=== PATIENT | female | born 1945 | race Caucasian/White ===

== ENCOUNTER → 2016-07-24 | Outpatient (CLI) | payer MEDICARE ==
[2016-07-24 08:36] LABS: ABSOLUTE EOSINOPHILS # (AUTO) 0.3 10^3/uL (0.0-0.6); ABSOLUTE LYMPHOCYTES (AUTO) 1.5 10^3/uL (0.5-4.7); ABSOLUTE MONOCYTES (AUTO) 0.7 10^3/uL (0.1-1.4); ABSOLUTE NEUT (AUTO) 4.2 10^3/uL (1.7-8.2); BASOPHILS % (AUTO) 0.5 % (0-2); EOSINOPHILS % (AUTO) 4.3 % (0-6); HEMATOCRIT 36.4 % (36.0-47.0); HEMOGLOBIN 12.2 g/dL (12.0-15.5); HGB HCT DIFFERENCE 0.2; LYMPHOCYTES % (AUTO) 22.3 % (13-45); MEAN CORPUSCULAR HEMOGLOBIN 29.5 pg (27.0-33.4); MEAN CORPUSCULAR HGB CONC 33.4 g/dL (32.0-36.0); MEAN CORPUSCULAR VOLUME 88 fl (80-97); MONOCYTES % (AUTO) 9.9 % (3-13); RED BLOOD COUNT 4.13 10^6/uL (3.72-5.28); RED CELL DISTRIBUTION WIDTH 15.5 % (11.5-14.0); WHITE BLOOD COUNT 6.7 10^3/uL (4.0-10.5)
[2016-07-24 09:14] LABS: ALANINE AMINOTRANSFERASE 35 U/L (9-52); ALBUMIN 4.4 g/dL (3.5-5.0); ALKALINE PHOSPHATASE 57 U/L (38-126); ANION GAP 12 (5-19); ASPARTATE AMINO TRANSFERASE 26 U/L (14-36); BILIRUBIN,DIRECT 0.3 mg/dL (0.0-0.4); BILIRUBIN,TOTAL 0.5 mg/dL (0.2-1.3); BLOOD UREA NITROGEN 20 mg/dL (7-20); CALCIUM 10.5 mg/dL (8.4-10.2); CARBON DIOXIDE 30 mmol/L (22-30); CHLORIDE 102 mmol/L (98-107); CHOLESTEROL 223.27 mg/dL (0-200); CREATININE RESULT 0.69 mg/dL (0.52-1.25); Direct HDL 57 mg/dL (>40); GLUCOSE 104 mg/dL (75-110); POTASSIUM 4.4 mmol/L (3.6-5.0); SODIUM 144.3 mmol/L (137-145); TOTAL PROTEIN 7.6 g/dL (6.3-8.2); TRIGLYCERIDES 146 mg/dL (<150)
[2016-07-24 09:33] LABS: DIRECT LDL 102 mg/dL (<100)
[2016-07-25 11:39] LABS: CREATININE URINE 43.1 mg/dL (Not Estab.)
== END ==
LOC: LAB 08:04
PROVIDERS: ATTEND Family Medicine Geriatric Medicine
DX: E11.9 Type 2 diabetes mellitus without complications (principal); I10 Essential (primary) hypertension; J30.9 Allergic rhinitis, unspecified; J01.10 Acute frontal sinusitis, unspecified; E78.00 Pure hypercholesterolemia, unspecified; Z79.899 Other long term (current) drug therapy
CPT/HCPCS: 36415; 80053; 80061; 82043; 82570; 83036; 84443; 85025

== ENCOUNTER → 2016-10-05 | Outpatient (CLI) | payer MEDICARE ==
--- NOTE | 2016-10-05 15:57 | WOMENS IMAGING REPORT ---
EXAM DESCRIPTION: 3D SCREENING MAMMO BILAT COMPLETED DATE/TIME: 10/05/2016 2:57 pm REASON FOR STUDY: ROUTINE SCREENING; Z12.31 COMPARISON: September 2015 and August 2014 TECHNIQUE: Standard craniocaudal and mediolateral oblique views of each breast recorded using digita l acquisition and breast tomosynthesis. LIMITATIONS: None. FINDINGS: Findings present which are benign by mammographic criteria. No suspicious masses, calcifi cations or architectural distortion. Pertinent benign findings: Fairly diffuse bilateral benign-appearing calcifications are identified. Read with the assistance of CAD. .[facility] - R2 Cenova Version 1.3 .[facility] Imaging - R2 Cenova Version 1.3 .[facility] Imaging - R2 Cenova Version 2.4 .[facility] [place] Cenova Version 2.4 .[facility] - R2 Pet Handler Version 9.2 Benign mammographic findings may include one or more of the following: Smooth masses, popcorn/rim/co arse calcifications, asymmetries, post-procedure changes, and lesions with long-standing stability. IMPRESSION: BENIGN MAMMOGRAPHIC FINDINGS. BIRADS 2 BREAST DENSITY: c. The breasts are heterogeneously dense, which may obscure small masses. BIRAD: 2 BENIGN FINDING(S) RECOMMENDATION: RECOMMENDATION: ROUTINE SCREENING COMMENT: The patient has been notified of the results by letter per SA requirements. Additional no tification policies are in place for contacting patient with suspicious or incomplete findings. Quality ID #225: The [employer] recommends an annual screening mammogram for women aged 40 years or over. This facility utilizes a reminder system to ensure that all patients receive reminder letters, and/or direct phone calls for appointments. This includes reminders for routine scr eening mammograms, diagnostic mammograms, or other Breast Imaging Interventions when appropriate. Th is patient will be placed in the appropriate reminder system. The [employer] (ACR) has developed recommendations for screening MRI of the breast s in certain patient populations, to be used in conjunction with mammography. Breast MRI surveillanc e may be appropriate for women with more than 20% lifetime risk of developing breast cancer as deter mined by genetic testing, significant family history of the disease, or history of mantle radiation f or Hodgkins Disease. ACR Practice Guidelines 2008. DBT Technology DBT is a type of tomographic mammography. With conventional mammography, overlapping breast tissue ma y make lesions difficult to detect, even with good compression. DBT uses an x-ray tube that rotates a round the breast, taking images at different angles. These images are then combined to create thin sl ices of the breast that the radiologist can view as a 3D reconstruction. The Hologic unit can perform full-field digital mammograms (2D imaging); or DBT (3D imaging); or both, in a combination mode that quickly performs both the mammogram and the tomosynthesis scan while the breast is still compressed. PQRS 6045F: Fluoroscopic imaging is not utilized for breast tomosynthesis. TECHNICAL DOCUMENTATION: FINDING NUMBER: (1) ASSESSMENT: (1) JOB ID: [id number] [employer]- All Rights Reserved
== END ==
LOC: WI 14:07
PROVIDERS: ATTEND Internal Medicine Medical Oncology
DX: Z12.31 Encounter for screening mammogram for malignant neoplasm of breast (principal)
CPT/HCPCS: 77063; G0202; 77067

== ENCOUNTER → 2016-10-17 | Outpatient (CLI) | payer MEDICARE ==
[2016-10-17 08:43] LABS: ALANINE AMINOTRANSFERASE 26 U/L (9-52); ASPARTATE AMINO TRANSFERASE 22 U/L (14-36); CHOLESTEROL 166.97 mg/dL (0-200); Direct HDL 55 mg/dL (>40); TRIGLYCERIDES 113 mg/dL (<150)
[2016-10-17 09:03] LABS: DIRECT LDL 81 mg/dL (<100)
[2016-10-18 11:40] LABS: MICROALBUMIN URINE 6.8 ug/mL (Not Estab.)
== END ==
LOC: LAB 08:06
PROVIDERS: ATTEND Family Medicine Geriatric Medicine
DX: E11.9 Type 2 diabetes mellitus without complications (principal); I10 Essential (primary) hypertension; E78.5 Hyperlipidemia, unspecified; Z79.899 Other long term (current) drug therapy
CPT/HCPCS: 36415; 80061; 82043; 82570; 83036; 84450; 84460

== ENCOUNTER 2017-02-01 08:50 | Day surgery (SDC) | payer MEDICARE ==
[~2017-02-01 08:50] MED LIST: CHONDR SU A NA/HYALUR INTRAOC KIT (SURGICARE) ONE; EPINEPHRINE INJ/PF 1 MG/1 ML AMPULE ONE; KETOROLAC TROMETHAMINE 0.45% 4 DROP/0.4 ML DROPERETTE OS PRN; LIDOCAINE 1% INJ-PF (10 MG/ML) 30 ML SDV ONE
[2017-02-01] MEDS: TETRACAINE HCL 0.5% OPH SOLN 2 ML OS PRN ×4 (09:11→09:45)
[2017-02-01] MEDS: TROPICAMIDE 1% OPH SOLN 3 ML OS PRN ×3 (09:12→09:33)
[2017-02-01] MEDS: CYCLOPENTOLATE 0.2%/PHENYLEPHRINE 1% OPH SOLN 2 ML OS PRN ×3 (09:12→09:33)
[2017-02-01] MEDS: BESIFLOXACIN HCL 0.6% OPH SUSP 5 ML BOTTLE OS PRN ×3 (09:13→10:05)
[2017-02-01] MEDS ORDERED: MIDAZOLAM 2 MG/2 ML INJ ONE (09:23)
[2017-02-01] MEDS ORDERED: FENTANYL CITRATE INJ/PF 100 MCG/2 ML AMPUL ONE (09:23)
--- NOTE | 2017-02-01 19:53 | [facility]GICARE OPERATIVE REPORT E ---
[facility] NAME: KENNEY FARLEY AGE: 72Y DATE OF SURGERY: 02/01/2017 ROOM: PREOPERATIVE DIAGNOSES: 1. CATARACT, LEFT EYE. 2. PUPIL MYOSIS OF THE LEFT EYE. POSTOPERATIVE DIAGNOSES: 1. CATARACT, LEFT EYE. 2. PUPIL MYOSIS OF THE LEFT EYE. OPERATION: Complex cataract extraction with use of a Malyugin ring due to poor pupillary dilation. SURGEON: JAVIER KENNEDY M.D. ANESTHESIA: Topical. PROCEDURE: After obtaining appropriate consent, the patient's left eye was prepped and draped in sterile fashion as well as the surgeon in a sterile manner and cataract surgery was started. First a paracentesis blade was used to make a small side-port incision. Viscoelastic was used to inflate the anterior chamber. Next a 2.4 mm incision was made with the paracentesis blade. A continuous capsulorrhexis incision was made using a cystotome and Utrata forceps. Following this hydrodissection was carried out to make the lens fully loose and mobile and it was rotated 90 degrees. Following this, a fpfamm-pzz-jswwpap technique was used to phacoemulsify the lens with a CDE of 8.26. The remaining cortex was removed with irrigation/aspiration. Provisc was instilled into the capsular bag to inflate the bag. A SN60WF, 16.0 diopter lens was placed. The remaining viscoelastic material was removed with irrigation/aspiration. Following this, a 10-0 nylon suture was used to close the incision and it was found to be watertight. Vigamox was instilled in the eye and a protective shield was placed over the eye. The patient returned to the postoperative recovery in stable condition. Prior to making the capsulorrhexis, a Malyugin ring was inserted due to poor pupillary dilation. This was removed at the end of the case. DICTATING PHYSICIAN: JAVIER KENNEDY M.D. [id number] PHY#: [id number] ID: [id number] JOB#: [id number] ACCT: [id number] cc:JAVIER KENNEDY M.D. >
--- NOTE | 2017-02-02 04:53 | SURGICARE DISCHARGE SUMMARY E ---
[facility] Discharge Summary NAME: KENNEY FARLEY AGE: 72Y ADMITTED: 02/01/2017 DISCHARGED: This is a 72-year-old patient who underwent cataract extraction of the left eye. DIAGNOSIS: 1. Cataract, left eye. 2. Myosis requiring a Malyugin ring, making this a complex cataract extraction due to poor pupillary dilation. She underwent surgery because she was having difficulty with glare from headlights, making it difficult to drive. DISCHARGE INSTRUCTIONS: The patient is to be on a regular diet. No bending at the waist, no heavy lifting. She should use her Besivance, Ilevro, and Durezol at 3 p.m. and 8 p.m. and sleep with a rigid shield. I will see her for a 1 day postoperative tomorrow. DICTATING PHYSICIAN: JAVIER KENNEDY M.D. [id number] PHY#: [id number] ID: [id number] JOB#: [id number] ACCT: [id number] cc:JAVIER KENNEDY M.D. >
== END 2017-02-01 10:50 | disposition home or self-care (01) ==
LOC: SC 08:50
PROVIDERS: ATTEND Internal Medicine
PROC: 08RK3JZ Replacement of Left Lens with Synthetic Substitute, Percutaneous Approach (ICD-10-PCS; principal; 2017-02-01 10:00)
DX: H25.812 Combined forms of age-related cataract, left eye (principal); H57.03 Miosis; I10 Essential (primary) hypertension; E11.9 Type 2 diabetes mellitus without complications; Z79.4 Long term (current) use of insulin; Z79.84 Long term (current) use of oral hypoglycemic drugs; Z79.82 Long term (current) use of aspirin; Z88.5 Allergy status to narcotic agent; Z85.3 Personal history of malignant neoplasm of breast
CPT/HCPCS: 66982; 82962; V2632; J2250; J3490 ×2; A9270; J0171; J3010; 142

== ENCOUNTER 2017-02-22 11:40 | Day surgery (SDC) | payer MEDICARE ==
[~2017-02-22 11:40] MED LIST changes: -CHONDR SU A NA/HYALUR INTRAOC KIT (SURGICARE) ONE; -EPINEPHRINE INJ/PF 1 MG/1 ML AMPULE ONE; -KETOROLAC TROMETHAMINE 0.45% 4 DROP/0.4 ML DROPERETTE OS PRN; -LIDOCAINE 1% INJ-PF (10 MG/ML) 30 ML SDV ONE; +TETRACAINE HCL 0.5% OPH SOLN 0.6 ML DROPERETTE OD PRN
[2017-02-22] MEDS ORDERED: EPINEPHRINE INJ/PF 1 MG/1 ML AMPULE ONE (12:22)
[2017-02-22] MEDS ORDERED: LIDOCAINE 1% INJ-PF (10 MG/ML) 30 ML SDV ONE (12:22)
[2017-02-22] MEDS ORDERED: CHONDR SU A NA/HYALUR INTRAOC KIT (SURGICARE) ONE (12:23)
[2017-02-22] MEDS: CYCLOPENTOLATE 0.2%/PHENYLEPHRINE 1% OPH SOLN 2 ML OD PRN ×3 (12:40→13:05)
[2017-02-22] MEDS: TETRACAINE HCL 0.5% OPH SOLN 2 ML OD PRN ×2 (12:40→13:14)
[2017-02-22] MEDS: TROPICAMIDE 1% OPH SOLN 3 ML OD PRN ×3 (12:41→13:05)
[2017-02-22] MEDS: KETOROLAC TROMETHAMINE 0.45% 4 DROP/0.4 ML DROPERETTE OD PRN ×2 (12:42→13:07)
[2017-02-22] MEDS: BESIFLOXACIN HCL 0.6% OPH SUSP 5 ML BOTTLE OD PRN ×2 (12:42→13:06)
[2017-02-22] MEDS ORDERED: MIDAZOLAM 2 MG/2 ML INJ ONE (13:11)
[2017-02-22] MEDS ORDERED: TOBRAMYCIN SULFATE/DEXAMETH OPH OINTMENT 3.5 GM ONE (13:26)
[2017-02-22] MEDS ORDERED: ACETAMINOPHEN 325 MG TABLET ONE (13:58)
--- NOTE | 2017-02-22 19:23 | SURGICARE OPERATIVE REPORT E ---
[facility] Operative Report NAME: KENNEY FARLEY AGE: 72Y DATE OF SURGERY: 02/22/2017 ROOM: PREOPERATIVE DIAGNOSIS: CATARACT, RIGHT EYE. POSTOPERATIVE DIAGNOSIS: CATARACT, RIGHT EYE. OPERATION: Cataract extraction with intraocular lens implant of the right eye. SURGEON: JAVIER KENNEDY M.D. ANESTHESIA: Topical. PROCEDURE: After obtaining appropriate consent, the patient's right eye was prepped and draped in sterile fashion as well as the surgeon in a sterile manner and cataract surgery was started. First a paracentesis blade was used to make a small side-port incision. Viscoelastic was used to inflate the anterior chamber. Next a 2.4 mm incision was made with the paracentesis blade. A continuous capsulorrhexis incision was made using a cystotome and Utrata forceps. Following this hydrodissection was carried out to make the lens fully loose and mobile and it was rotated 90 degrees. Following this, a dxxxyv-nub-bqfvgxj technique was used to phacoemulsify the lens with a CDE of 7.55. The remaining cortex was removed with irrigation/aspiration. Provisc was instilled into the capsular bag to inflate the bag. A SN60WF, 17.5 diopter lens was placed. The remaining viscoelastic material was removed with irrigation/aspiration. Following this, a 10-0 nylon suture was used to close the incision and it was found to be watertight. Vigamox was instilled in the eye and a protective shield was placed over the eye. The patient returned to the postoperative recovery in stable condition. DICTATING PHYSICIAN: JAVIER KENNEDY M.D. [id number] PHY#: [id number] ID: [id number] JOB#: [id number] ACCT: [id number] cc:JAVIER KENNEDY M.D. >
--- NOTE | 2017-02-22 19:28 | SURGICARE DISCHARGE SUMMARY E ---
[facility] Discharge Summary NAME: KENNEY FARLEY AGE: 72Y ADMITTED: 02/22/2017 DISCHARGED: 02/22/2017 HOSPITAL COURSE: This is a 72-year-old patient who underwent cataract extraction of the right eye. DIAGNOSIS: CATARACT, RIGHT EYE. The patient underwent surgery because she was having difficulty because of increased glare from headlights at night. DISCHARGE INSTRUCTIONS: She is to be on a regular diet. No bending at her waist, no heavy lifting. She should use Besivance, Ilevro, and Durezol at 3 p.m. and 8 p.m. and sleep with a rigid shield. I will see her for her 1 day postoperative tomorrow. DICTATING PHYSICIAN: JAVIER KENNEDY M.D. [id number] PHY#: [id number] ID: [id number] JOB#: [id number] ACCT: [id number] cc:JAVIER KENNEDY M.D. >
== END 2017-02-22 14:39 | disposition home or self-care (01) ==
LOC: SC 11:40
PROVIDERS: ATTEND Internal Medicine
PROC: 08RJ3JZ Replacement of Right Lens with Synthetic Substitute, Percutaneous Approach (ICD-10-PCS; principal; 2017-02-22 13:30)
DX: H25.811 Combined forms of age-related cataract, right eye (principal); H57.03 Miosis; Z96.1 Presence of intraocular lens; E11.9 Type 2 diabetes mellitus without complications; I10 Essential (primary) hypertension; E78.00 Pure hypercholesterolemia, unspecified; Z79.82 Long term (current) use of aspirin; Z79.899 Other long term (current) drug therapy; Z79.84 Long term (current) use of oral hypoglycemic drugs; Z79.4 Long term (current) use of insulin; Z85.3 Personal history of malignant neoplasm of breast
CPT/HCPCS: 66984; 82962; V2632; A9270 ×2; J2250; J3490 ×3; J0171; 142

== ENCOUNTER → 2017-04-26 | Outpatient (CLI) | payer MEDICARE ==
--- NOTE | 2017-04-26 17:08 | WOMENS IMAGING REPORT ---
EXAM DESCRIPTION: 3D DX MAMMO LEFT UNILAT; U/S BREAST UNILAT LIMITED COMPLETED DATE/TIME: 04/26/2017 8:43 am; 04/26/2017 10:15 am REASON FOR STUDY: MALIGNANT NEOPLASM OF LOWER OUTER QUADRANT; LEFT BREAST PALP. 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 Additional left breast 90 mediolateral view, cone compression of the upper outer quadrant in the are a of palpable abnormality. Left breast ultrasound was also performed. LIMITATIONS: None. FINDINGS: BREAST: Left MASSES: No discrete masses at mammograms/tomosynthesis CALCIFICATIONS: No new or suspicious calcifications. ARCHITECTURAL DISTORTION: Question architectural distortion on the tomosynthesis images in the upper outer quadrant 10 cm from the nipple in the area of palpable abnormality DEVELOPING DENSITY: None. ASYMMETRY: None noted. OTHER: No other significant findings. Read with the assistance of CAD. .[facility] - R2 Cenova Version 1.3 .[facility] Imaging - R2 Cenova Version 1.3 .[facility] Imaging - R2 Cenova Version 2.4 .[facility] [place] - R2 Cenova Version 2.4 .[facility] - R2 Digital Ad Trafficker Version 9.2 Left breast ultrasound: Left breast ultrasound was performed by both myself as well as the technologist. The patient upper o uter quadrant left breast is very firm, subtle abnormal echotexture with areas of ill-defined hypoech oic parenchyma. This most pronounced in the far upper outer quadrant, and with the tomosynthesis fin dings of subtle architectural distortion is worrisome for malignancy, possibly lobular carcinoma. The mammographic and sonographic findings were discussed with Dr Wheat, 1000 hours 04/26/2017. Bilateral breast MRI will be performed for followup, to evaluate the left upper outer quadrant and as sist in biopsy planning. IMPRESSION: Subtle signs of architectural distortion 5 mammography/ tomosynthesis and altered echote xture at ultrasound in the far upper outer quadrant left breast. Findings could indicate lobular mal ignancy. MRI of the bilateral breasts with contrast is recommended for follow-up, to evaluate for ex tent of disease assist with biopsy planning. BREAST DENSITY: c. The breasts are heterogeneously dense, which may obscure small masses. BIRAD: 0 Incomplete: Needs additional imaging evaluation with bilateral breast MRI with contrast. RECOMMENDATION: RECOMMENDED FOLLOW UP: Bilateral breast MRI with contrast SPECIFIC INTERVENTION/IMAGING/CONSULTATION RECOMMENDED:Bilateral breast MRI with contrast COMMUNICATION:Findings of today's mammograms and ultrasound were discussed with the patient, who unde rstands the need for breast MRI. Findings of today's mammograms and ultrasound were also discussed w ovidio Wheat COMMENT: The patient has been notified of the results by letter per SA requirements. Additional no tification policies are in place for contacting patient with suspicious or incomplete findings. Quality ID #225: The [employer] recommends an annual screening mammogram for women aged 40 years or over. This facility utilizes a reminder system to ensure that all patients receive reminder letters, and/or direct phone calls for appointments. This includes reminders for routine scr eening mammograms, diagnostic mammograms, or other Breast Imaging Interventions when appropriate. Th is patient will be placed in the appropriate reminder system. The [employer] (ACR) has developed recommendations for screening MRI of the breast s in certain patient populations, to be used in conjunction with mammography. Breast MRI surveillanc e may be appropriate for women with more than 20% lifetime risk of developing breast cancer as deter mined by genetic testing, significant family history of the disease, or history of mantle radiation f or Hodgkins Disease. ACR Practice Guidelines 2008. DBT Technology DBT is a type of tomographic mammography. With conventional mammography, overlapping breast tissue ma y make lesions difficult to detect, even with good compression. DBT uses an x-ray tube that rotates a round the breast, taking images at different angles. These images are then combined to create thin sl ices of the breast that the radiologist can view as a 3D reconstruction. The [employer] unit can perform full-field digital mammograms (2D imaging); or DBT (3D imaging); or both, in a combination mode that quickly performs both the mammogram and the tomosynthesis scan while the breast is still compressed. PQRS 6045F: Fluoroscopic imaging is not utilized for breast tomosynthesis. TECHNICAL DOCUMENTATION: FINDING NUMBER: (1) ASSESSMENT: (1) JOB ID: [id number] [employer]- All Rights Reserved
--- NOTE | 2017-04-26 17:08 | WOMENS IMAGING REPORT ---
EXAM DESCRIPTION: 3D DX MAMMO LEFT UNILAT; U/S BREAST UNILAT LIMITED COMPLETED DATE/TIME: 04/26/2017 8:43 am; 04/26/2017 10:15 am REASON FOR STUDY: MALIGNANT NEOPLASM OF LOWER OUTER QUADRANT; LEFT BREAST PALP. 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 Additional left breast 90 mediolateral view, cone compression of the upper outer quadrant in the are a of palpable abnormality. Left breast ultrasound was also performed. LIMITATIONS: None. FINDINGS: BREAST: Left MASSES: No discrete masses at mammograms/tomosynthesis CALCIFICATIONS: No new or suspicious calcifications. ARCHITECTURAL DISTORTION: Question architectural distortion on the tomosynthesis images in the upper outer quadrant 10 cm from the nipple in the area of palpable abnormality DEVELOPING DENSITY: None. ASYMMETRY: None noted. OTHER: No other significant findings. Read with the assistance of CAD. .[facility] - R2 Cenova Version 1.3 .[facility] Imaging - R2 Cenova Version 1.3 .[facility] Imaging - R2 Cenova Version 2.4 .[facility] R2 Cenova Version 2.4 .[facility] - R2 Senior Consultant Version 9.2 Left breast ultrasound: Left breast ultrasound was performed by both myself as well as the technologist. The patient upper o uter quadrant left breast is very firm, subtle abnormal echotexture with areas of ill-defined hypoech oic parenchyma. This most pronounced in the far upper outer quadrant, and with the tomosynthesis fin dings of subtle architectural distortion is worrisome for malignancy, possibly lobular carcinoma. The mammographic and sonographic findings were discussed with Dr Wheat, 1000 hours 04/26/2017. Bilateral breast MRI will be performed for followup, to evaluate the left upper outer quadrant and as sist in biopsy planning. IMPRESSION: Subtle signs of architectural distortion 5 mammography/ tomosynthesis and altered echote xture at ultrasound in the far upper outer quadrant left breast. Findings could indicate lobular mal ignancy. MRI of the bilateral breasts with contrast is recommended for follow-up, to evaluate for ex tent of disease assist with biopsy planning. BREAST DENSITY: c. The breasts are heterogeneously dense, which may obscure small masses. BIRAD: 0 Incomplete: Needs additional imaging evaluation with bilateral breast MRI with contrast. RECOMMENDATION: RECOMMENDED FOLLOW UP: Bilateral breast MRI with contrast SPECIFIC INTERVENTION/IMAGING/CONSULTATION RECOMMENDED:Bilateral breast MRI with contrast COMMUNICATION:Findings of today's mammograms and ultrasound were discussed with the patient, who unde rstands the need for breast MRI. Findings of today's mammograms and ultrasound were also discussed w ovidio Wheat COMMENT: The patient has been notified of the results by letter per SA requirements. Additional no tification policies are in place for contacting patient with suspicious or incomplete findings. Quality ID #225: The [employer] recommends an annual screening mammogram for women aged 40 years or over. This facility utilizes a reminder system to ensure that all patients receive reminder letters, and/or direct phone calls for appointments. This includes reminders for routine scr eening mammograms, diagnostic mammograms, or other Breast Imaging Interventions when appropriate. Th is patient will be placed in the appropriate reminder system. The [employer] (ACR) has developed recommendations for screening MRI of the breast s in certain patient populations, to be used in conjunction with mammography. Breast MRI surveillanc e may be appropriate for women with more than 20% lifetime risk of developing breast cancer as deter mined by genetic testing, significant family history of the disease, or history of mantle radiation f or Hodgkins Disease. ACR Practice Guidelines 2008. DBT Technology DBT is a type of tomographic mammography. With conventional mammography, overlapping breast tissue ma y make lesions difficult to detect, even with good compression. DBT uses an x-ray tube that rotates a round the breast, taking images at different angles. These images are then combined to create thin sl ices of the breast that the radiologist can view as a 3D reconstruction. The [employer] unit can perform full-field digital mammograms (2D imaging); or DBT (3D imaging); or both, in a combination mode that quickly performs both the mammogram and the tomosynthesis scan while the breast is still compressed. PQRS 6045F: Fluoroscopic imaging is not utilized for breast tomosynthesis. TECHNICAL DOCUMENTATION: FINDING NUMBER: (1) ASSESSMENT: (1) JOB ID: [id number] [employer]- All Rights Reserved
== END ==
LOC: WI 07:56
PROVIDERS: ATTEND Internal Medicine Medical Oncology
DX: C50.511 Malignant neoplasm of lower-outer quadrant of right female breast (principal)
CPT/HCPCS: 76642; 77065; G0279

== ENCOUNTER → 2017-05-03 | Outpatient (CLI) | payer MEDICARE ==
--- NOTE | 2017-05-05 14:35 | RADIOLOGY REPORT (SQ) ---
EXAM DESCRIPTION: MRI BREAST BILAT W AND/OR WO COMPLETED DATE/TIME: 05/03/2017 11:19 am REASON FOR STUDY: BREAST CA (C50.511) C50.511 MALIG NEOPLM OF LOWER-OUTER QUADRANT OF RIGHT FEMALE COMPARISON: Recent mammography and ultrasound. Prior MRI in 2014. PATHOLOGIC CORRELATION: Benign biopsy 2014 in the right breast. Known breast malignancy 1998 right breast. CONTRAST TYPE AND DOSE: 20 mL Prohance. RENAL FUNCTION: GFR > 60. TECHNIQUE: MR imaging performed with a dedicated breast coil. Pre contrast T1 and T2 weighted images . Pre contrast and post contrast enhanced T1 weighted images with fat saturation. Subtraction images, 3D thick and thin MIPS, and kinetic analysis performed on an independent workstat ion. ([employer] workstation) Magnet strength: 1.5 T LIMITATIONS: None. FINDINGS: BREAST DENSITY: c. The breasts are heterogeneously dense, which may obscure small masses. BACKGROUND PARENCHYMAL ENHANCEMENT:Moderate. RIGHT BREAST: Posttreatment changes. Skin thickening. Smaller breast. No enhancing or suspicious masses. No clumped, regional/segmental ductal enhancement. CHEST WALL: Normal tissue planes. No abnormal internal mammary nodes. AXILLA: Normal axillary and retro-pectoral nodes. LEFT BREAST:No enhancing or suspicious masses. Enhancement pattern unchanged since 2014. No clumped , regional/segmental ductal enhancement. CHEST WALL: Normal tissue planes. No abnormal internal mammary nodes. AXILLA: Normal axillary and retro-pectoral nodes. OTHER:No identified liver, bone, or lung lesions. No other significant incidental findings. IMPRESSION: Posttreatment changes in the right breast. No significant finding in the left breast. BIRAD: RIGHT BREAST: 2 Benign findings. LEFT BREAST: 1 Negative. RECOMMENDATION: RECOMMENDED FOLLOW-UP: Further intervention of a palpable abnormality should be base d on clinical suspicion. TECHNICAL DOCUMENTATION: JOB ID: [id number] [employer]- All Rights Reserved
== END ==
LOC: RAD 09:41
PROVIDERS: ATTEND Internal Medicine Medical Oncology
DX: C50.511 Malignant neoplasm of lower-outer quadrant of right female breast (principal)
CPT/HCPCS: 82565; A9576; C8906; 77059

== ENCOUNTER → 2017-05-18 | Outpatient (CLI) | payer MEDICARE ==
--- NOTE | 2017-05-18 15:55 | RADIOLOGY REPORT (SQ) ---
EXAM DESCRIPTION: SACRUM AND COCCYX COMPLETED DATE/TIME: 05/18/2017 11:19 am REASON FOR STUDY: LOW BACK PAIN M54.5 LOW BACK PAIN COMPARISON: None. NUMBER OF VIEWS: Three views. TECHNIQUE: AP, lateral, and tilt views of the sacrum and coccyx. LIMITATIONS: None. FINDINGS: MINERALIZATION: Normal. BONES: No acute fracture or dislocation. No worrisome bone lesions. SOFT TISSUES: No soft tissue swelling. No foreign body. OTHER: No other significant finding. IMPRESSION: NEGATIVE STUDY OF THE SACRUM AND COCCYX. TECHNICAL DOCUMENTATION: JOB ID: [id number] [employer]- All Rights Reserved Reading location - IP/workstation name: [email or web address]
--- NOTE | 2017-05-18 16:02 | RADIOLOGY REPORT (SQ) ---
EXAM DESCRIPTION: LUMBAR SPINE COMPLETE COMPLETED DATE/TIME: 05/18/2017 11:19 am REASON FOR STUDY: LOW BACK PAIN M54.5 LOW BACK PAIN COMPARISON: None. NUMBER OF VIEWS: Five views including obliques. TECHNIQUE: AP, lateral, oblique, and sacral radiographic images acquired of the lumbar spine. LIMITATIONS: None. FINDINGS: MINERALIZATION: Normal. SEGMENTATION: Normal. No transitional anatomy. ALIGNMENT: There is mild anterolisthesis of L4 in relation to L5. VERTEBRAE: Maintained height. No fracture or worrisome bone lesion. DISCS: There is some mild decrease in the L4-L5 disc space height. No other significant disc space r eduction is seen. POSTERIOR ELEMENTS: Pedicles and facets are intact. No pars defect or posterior arch defects. Degen erative changes are identified in the facet articulations at multiple levels HARDWARE: None in the spine. PARASPINAL SOFT TISSUES: Normal. PELVIS: Intact as visualized. No fractures or worrisome bone lesions. SI joints intact. OTHER: Extensive vascular calcifications are identified in the abdominal aorta and iliac vessels. Th ere is some apparent dilatation of the abdominal aorta which I cannot exclude as an abdominal aortic aneurysm. Ultrasound or CT may be of value for further evaluation IMPRESSION: Degenerative changes as noted above. Extensive vascular calcifications in the abdominal aorta and iliac vessels as noted above. There is some apparent dilatation of the abdominal aorta wh ich I cannot exclude as an abdominal aortic aneurysm. Ultrasound or CT is recommended for further ev aluation. Other findings as noted above TECHNICAL DOCUMENTATION: JOB ID: [id number] [employer]- All Rights Reserved Reading location - IP/workstation name: [email or web address]
--- NOTE | 2017-05-18 16:03 | RADIOLOGY REPORT (SQ) ---
EXAM DESCRIPTION: T SPINE AP/LAT COMPLETED DATE/TIME: 05/18/2017 11:19 am REASON FOR STUDY: LOW BACK PAIN M54.5 LOW BACK PAIN COMPARISON: None. NUMBER OF VIEWS: Two views. TECHNIQUE: AP and lateral radiographic images acquired of the thoracic spine. LIMITATIONS: None. FINDINGS: MINERALIZATION: Normal. ALIGNMENT: Normal. No scoliosis. VERTEBRAE: No fracture or bone lesion. Maintained height, normal segmentation. DISCS: No significant loss of height or significant narrowing. Osteophytic lipping is identified at multiple levels in the mid and lower thoracic spine. HARDWARE: None in the spine. MEDIASTINUM AND SOFT TISSUES: Normal heart size and aortic contour. No soft tissue abnormality. VISUALIZED LUNG CALLAHAN: Clear. OTHER: No other significant finding. IMPRESSION: Degenerative changes as noted above TECHNICAL DOCUMENTATION: JOB ID: [id number] [employer]- All Rights Reserved Reading location - IP/workstation name: [email or web address]
== END ==
LOC: OD 10:51
PROVIDERS: ATTEND Family Medicine Geriatric Medicine
DX: M54.5 Low back pain (principal)
CPT/HCPCS: 72070; 72110; 72220

== ENCOUNTER → 2017-05-30 | Outpatient (CLI) | payer MEDICARE ==
--- NOTE | 2017-05-30 12:05 | RADIOLOGY REPORT (SQ) ---
EXAM DESCRIPTION: CTA ABDOMEN/PELVIS W WO COMPLETED DATE/TIME: 05/30/2017 11:38 am REASON FOR STUDY: I77.819 AORTIC ECTASIA, UNSPECIFIED SITE ABNORMAL FINDINGS ON DIAGNOSTIC IM I77.81 9 AORTIC ECTASIA, UNSPECIFIED SITE R93.7 ABNORMAL FINDINGS ON DIAGNOSTIC IMAGING OF PRT MS SYS R10. 9 UNSPECIFIED ABDOMINAL PAIN COMPARISON: Lumbar spine films dated 05/18/2017 TECHNIQUE: CT scan of the abdominal aorta extending to the iliac bifurcation performed with intraven ous contrast using helical scanning technique with dynamic intravenous contrast injection. Images rev iewed with lung, soft tissue, and bone windows. Reconstructed coronal and sagittal MPR images reviewe d. All images stored on PACS. Advanced 3D imaging as volume rendering, MIPS, SSD performed? No All CT scanners at this facility use dose modulation, iterative reconstruction, and/or weight based d osing when appropriate to reduce radiation dose to as low as reasonably achievable (ALARA). [facility]: Dose Right [facility]: CareDose [facility]: Dose Right [facility]: Teradose 4D [facility]: [employer] CONTRAST TYPE AND DOSE: contrast/concentration: Isovue 370.00 mg/ml; Total Contrast Delivered: 55.0 ml; Total Saline Delivered: 70.1 ml RENAL FUNCTION: Creatinine 0.7 LIMITATIONS: None. FINDINGS: POST-CONTRAST IMAGING: AORTA AND VESSELS: There is diffuse ectasia of the abdominal aorta and iliac vessels with extensive v ascular calcifications. There is an infrarenal abdominal aortic aneurysm with a superior component m easuring 3.5 x 3.2 cm in diameters and a more inferior component measuring 3.2 x 3.2 cm in diameters. Vascular calcifications are identified at the origin of the celiac axis, superior mesenteric artery , and renal arteries. LUNG BASES: No significant findings. No nodules or infiltrates. LIVER: Normal size. No masses or dilated ducts. SPLEEN: Normal size. No focal lesions. PANCREAS: No masses. No significant calcifications. No adjacent inflammation or peripancreatic fluid collections. Pancreatic duct not dilated. GALLBLADDER: No identified stones by CT criteria. No inflammatory changes to suggest cholecystitis. ADRENAL GLANDS: No significant masses or asymmetry. RIGHT KIDNEY AND URETER: No mass, calculi or urinary tract obstruction. LEFT KIDNEY AND URETER: No mass, calculi or urinary tract obstruction. RETROPERITONEUM: No retroperitoneal adenopathy, hemorrhage or masses. BOWEL AND PERITONEAL CAVITY: No masses or inflammatory changes. No free fluid or peritoneal masses. APPENDIX: Normal. ABDOMINAL WALL: No masses. No hernias. BONY STRUCTURES: Degenerative changes are identified in the lumbar spine with some minimal anterolist hesis of L 4 in relation to L 5. There is mild compression of the superior endplate of the L1 verteb ra which is age indeterminate 3-D IMAGING: Confirms the above findings. OTHER: A cystic mass is identified in the right pelvis measuring 3.8 x 3.1 cm in diameters presumably ovarian in etiology. Followup recommendations are as noted below. IMPRESSION: Diffuse ectasia of the abdominal aorta and iliac vessels with extensive vascular calcifi cations. Infrarenal abdominal aortic aneurysm measuring 3.5 x 3.2 cm in greatest diameters. Cystic mass in the right pelvis presumably ovarian in etiology with followup recommendations as noted below. Other findings as noted above COMMENT: Followup of asymptomatic adnexal cysts found on CT or MRI in postmenopausal patients Early postmenopausal (50-55 yo) *Benign cyst ?3 cm: No followup *Benign cyst >3 and ?5 cm: US followup at 6-12 months *Benign cyst >5 cm: US *Probably benign cyst ?3 cm: No followup *Probably benign cyst > 3 cm: US *Other imaging features, probably diagnostic: manage as appropriate for diagnosis *Other imaging features, not specific: US Late postmenopausal (>55 yo) *Benign cyst ? 3 cm: No followup *Benign cyst > 3 cm: US *Probably benign cyst ? 1 cm: No followup *Probably benign cyst > 1 cm: US *Other imaging features: same as for early postmenopausal patient Note: If cyst is clinically symptomatic or otherwise concerning, other followup may be necessary. Menopause is considered age 50 by radiologist unless date of last period is known. Based on Managing Incidental Findings on Abdominal and Pelvic CT and MRI, Part 1: White Paper of the ACR Incidental Fi ndings Committee II on Adnexal Findings J Am [facility] Radiol 2013;10:675-681. TECHNICAL DOCUMENTATION: JOB ID: [id number] Quality ID # [id number]: Final reports with documentation of one or more dose reduction techniques (e.g., Au tomated exposure control, adjustment of the mA and/or kV according to patient size, use of iterative reconstruction technique) 2010 [employer]- All Rights Reserved Reading location - IP/workstation name: [email or web address] [id number]
== END ==
LOC: RAD 10:42
PROVIDERS: ATTEND Family Medicine Geriatric Medicine
DX: I71.4 Abdominal aortic aneurysm, without rupture (principal); N94.89 Other specified conditions associated with female genital organs and menstrual cycle; R10.9 Unspecified abdominal pain
CPT/HCPCS: 74174; 82565

== ENCOUNTER → 2017-06-06 | Day surgery (SDC) | payer MEDICARE ==
[~2017-06-06] MED LIST changes: +LIDOCAINE 2% INJ (20 MG/ML) 20 ML MDV ONE; -TETRACAINE HCL 0.5% OPH SOLN 0.6 ML DROPERETTE OD PRN
--- NOTE | 2017-06-08 18:51 | WOMENS IMAGING REPORT ---
EXAM DESCRIPTION: U/S BREAST BX; U/S BREAST BX EACH ADDT'L; LEFT DIG DX MAMMO NO CHG COMPLETED DATE/TIME: 06/06/2017 11:07 am; 06/06/2017 11:09 am REASON FOR STUDY: LEFT BREAST MASS; LEFT BREAST MASS C50.912; LEFT S/P US BX FOR CLIP PLACEMENT N63. 0 UNSPECIFIED LUMP IN UNSPECIFIED BREAST C50.912 MALIGNANT NEOPLASM OF UNSPECIFIED SITE OF LEFT FE MAL COMPARISON: Multiple mammograms dating back to 2014 Bilateral breast MRI 01/01/2015, 05/03/2017 Diagnostic mammograms and ultrasound 04/26/2017 TECHNIQUE: The procedure was discussed with the patient and the patient agreed to proceed. Ultrasou nd with tissue harmonics demonstrates ill-defined nodules at the 12 o'clock position and 1 o'clock po sition left breast. The patient was scanned and the area of interest in the 12 o'clock position and 1 o'clock position, 9 to 10 cm from the nipple of the left breast for localized. These areas correlates with the area of concern on prior imaging studies. These areas were targeted for ultrasound-guided core biopsy. 1 o'clock position: After sterile skin prep and 3 mL local lidocaine 1% for skin and deep tissue anesthesia, a 14 gauge c oaxial core biopsy needle was used to obtain several cores of tissue from the lesion. Under ultrasou nd guidance, a ribbon clip was placed in the areas sampled. There were no immediate post-procedure c omplications. 12 o'clock position: After sterile skin prep and 3 mL local lidocaine 1% for skin and deep tissue anesthesia, a 14 gauge c oaxial core biopsy needle was used to obtain several cores of tissue from the lesion. Under ultrasou nd guidance, a ribbon clip was placed in the areas sampled. There were no immediate post-procedure c omplications. MAMMOGRAM: Post-procedure two view mammogram was acquired in the digital mammogram suite. The clips w ere in the expected location. No significant hematoma. Pathology yields a diagnosis of invasive lobular carcinoma at the 1 o'clock position left breast, inv asive lobular carcinoma at the 12 o'clock position left breast Pathology is concordant. LIMITATIONS: None. FINDINGS: Ultrasound guided breast biopsy as described above. POST PROCEDURE MAMMOGRAMS FOR MARKER PLACEMENT: Yes IMPRESSION: ULTRASOUND-GUIDED CORE BIOPSY OF THE LEFT BREAST YIELDS A DIAGNOSIS OF INVASIVE LOBULAR CARCINOMA COMMENT: BI-RADS 6 Known biopsy-proven malignancy. Appropriate action should be taken. COMMUNICATION: This result was discussed with the patient, 1330 hours 06/08/2017. She understands vern t this is a malignant diagnosis which requires further intervention. Patient medication list reviewed: Yes- Quality ID# [id number]:Eligible professional attests to documenting i n the medical record they obtained, updated, or reviewed the patient's current medications. TECHNICAL DOCUMENTATION: JOB ID: [id number] [employer]- All Rights Reserved Reading location - IP/workstation name: [email or web address]
== END ==
LOC: WI 09:32
PROVIDERS: ATTEND Internal Medicine Medical Oncology
DX: C50.912 Malignant neoplasm of unspecified site of left female breast (principal)
CPT/HCPCS: 88342 ×2; 88341 ×2; 88305 ×2; 19083; 19084; J3490

== ENCOUNTER → 2017-10-08 | Outpatient (CLI) | payer MEDICARE ==
--- NOTE | 2017-10-08 15:24 | RADIOLOGY REPORT (SQ) ---
EXAM DESCRIPTION: FOOT RIGHT COMPLETE COMPLETED DATE/TIME: 10/08/2017 3:04 pm REASON FOR STUDY: HX OF FALLING (Z91.81) Z91.81 HISTORY OF FALLING COMPARISON: None. NUMBER OF VIEWS: Three views. TECHNIQUE: AP, lateral and oblique radiographic images acquired of the right foot. LIMITATIONS: None. FINDINGS: MINERALIZATION: Normal. BONES: No acute fracture or dislocation. No worrisome bone lesions. JOINTS: No effusions. SOFT TISSUES: No soft tissue swelling. No foreign body. OTHER: No other significant finding. IMPRESSION: NEGATIVE STUDY OF THE RIGHT FOOT. NO RADIOGRAPHIC EVIDENCE OF ACUTE INJURY. TECHNICAL DOCUMENTATION: JOB ID: [id number] [employer]- All Rights Reserved Reading location - IP/workstation name: [email or web address]
--- NOTE | 2017-10-08 15:59 | RADIOLOGY REPORT (SQ) ---
EXAM DESCRIPTION: FACIAL BONES COMPLETED DATE/TIME: 10/08/2017 3:04 pm REASON FOR STUDY: HX OF FALLING (Z91.81) Z91.81 HISTORY OF FALLING COMPARISON: None. NUMBER OF VIEWS: Three view. TECHNIQUE: Images of the facial bones acquired. LIMITATIONS: None. FINDINGS: ORBITS: No fracture. No foreign body. SINUSES: No mucosal thickening. No air fluid levels. FACIAL BONES: No fracture. OTHER: No other significant finding. IMPRESSION: NO FRACTURE OF THE FACIAL BONES. TECHNICAL DOCUMENTATION: JOB ID: [id number] [employer]- All Rights Reserved Reading location - IP/workstation name: [email or web address]
== END ==
LOC: RAD 14:14
PROVIDERS: ATTEND Internal Medicine
DX: G50.1 Atypical facial pain (principal); R22.0 Localized swelling, mass and lump, head; M79.672 Pain in left foot
CPT/HCPCS: 70150

== ENCOUNTER 2018-01-27 15:55 | Emergency (ER) | payer MEDICARE ==
[2018-01-27] MEDS ORDERED: NORMAL SALINE 500 ML IV ONE (16:39)
[2018-01-27 17:23] LABS: ABSOLUTE EOSINOPHILS # (AUTO) 0.1 10^3/uL (0.0-0.6); ABSOLUTE MONOCYTES (AUTO) 0.8 10^3/uL (0.1-1.4); ABSOLUTE NEUT (AUTO) 6.4 10^3/uL (1.7-8.2); BASOPHILS % (AUTO) 0.3 % (0-2); EOSINOPHILS % (AUTO) 0.7 % (0-6); HEMATOCRIT 29.2 % (36.0-47.0); HEMOGLOBIN 10.1 g/dL (12.0-15.5); LYMPHOCYTES % (AUTO) 11.9 % (13-45); MEAN CORPUSCULAR HEMOGLOBIN 33.7 pg (27.0-33.4); MEAN CORPUSCULAR HGB CONC 34.5 g/dL (32.0-36.0); MEAN CORPUSCULAR VOLUME 98 fl (80-97); MONOCYTES % (AUTO) 9.4 % (3-13); PLATELET COUNT 211 10^3/uL (150-450); RED BLOOD COUNT 2.99 10^6/uL (3.72-5.28); RED CELL DISTRIBUTION WIDTH 16.4 % (11.5-14.0); SEGMENTED NEUTROPHILS % (AUTO) 77.7 % (42-78); TOTAL CELLS COUNTED % (AUTO) 100 %; WHITE BLOOD COUNT 8.2 10^3/uL (4.0-10.5)
[2018-01-27 17:49] LABS: ALANINE AMINOTRANSFERASE 25 U/L (9-52); ALBUMIN 4.3 g/dL (3.5-5.0); ALKALINE PHOSPHATASE 50 U/L (38-126); ANION GAP 13 (5-19); ASPARTATE AMINO TRANSFERASE 19 U/L (14-36); BILIRUBIN,DIRECT 0.3 mg/dL (0.0-0.4); BILIRUBIN,TOTAL 0.5 mg/dL (0.2-1.3); BLOOD UREA NITROGEN 20 mg/dL (7-20); CALCIUM 10.3 mg/dL (8.4-10.2); CARBON DIOXIDE 30 mmol/L (22-30); CHLORIDE 97 mmol/L (98-107); GLUCOSE 153 mg/dL (75-110); POTASSIUM 4.3 mmol/L (3.6-5.0); SODIUM 139.7 mmol/L (137-145); TOTAL PROTEIN 7.1 g/dL (6.3-8.2)
--- NOTE | 2018-01-27 17:58 | RADIOLOGY REPORT (SQ) ---
EXAM DESCRIPTION: CHEST SINGLE VIEW COMPLETED DATE/TIME: 01/27/2018 5:33 pm REASON FOR STUDY: syncope COMPARISON: 09/02/2015 EXAM PARAMETERS: NUMBER OF VIEWS: One view. TECHNIQUE: Single frontal radiographic view of the chest acquired. RADIATION DOSE: NA LIMITATIONS: None. FINDINGS: LUNGS AND PLEURA: No opacities, masses or pneumothorax. No pleural effusion. MEDIASTINUM AND HILAR STRUCTURES: No masses. Contour normal. HEART AND VASCULAR STRUCTURES: Heart normal in size. Normal vasculature. BONES: No acute findings. HARDWARE: Left-sided chest port tip terminates in the expected region of the cavoatrial junction. OTHER: No other significant finding. IMPRESSION: NO ACUTE RADIOGRAPHIC FINDING IN THE CHEST. TECHNICAL DOCUMENTATION: JOB ID: [id number] [employer]- All Rights Reserved Reading location - IP/workstation name: [email or web address]
--- NOTE | 2018-01-27 19:01 | ER Document Report ---
ED Syncope and Near Syncope <YOVANI HALL - Last Filed: 01/28/18 02:21> - General Mode of Arrival: Wheelchair Information source: Patient, Relative TRAVEL OUTSIDE OF THE [place] IN LAST 30 DAYS: No - HPI Episode witnessed (by whom): Yes - By daughter Single episoded occurred: Prior to coming to ER When was most recent episode: This evening Symptoms prior to episode: Abdominal pain, Nausea/vomiting Duration of preceeding symptoms: Minutes 2 moments prior to her passing out patient was attempting to have a Position/Activity at time of episode: Sitting - Sitting having a BM Details of activity: See HPI above Quality of pain: Cramping, Pressure Severity: Moderate Pain Level: 3 Context: Became unresponsive, Collapsed. denies: Incontinent of stool, Incontinent of urine Injury location: None - He is still hemodynamic stable Current symptoms: Abdominal pain, Vomiting Similar symptoms previously: No Recently seen / treated by doctor: Yes <PAUL MARQUEZ - Last Filed: 02/04/18 09:43> - General Chief Complaint: Syncope Stated Complaint: DIZZINESS Time Seen by Provider: 01/27/18 16:01 Notes: Patient is a 73-year-old female who comes to the emergency room with her family with complaint of having a syncopal episode at home. Patient is a metastatic breast cancer survivor she is gone through multiple rounds of chemo last one being done in November and they are giving her a break in with cisplatin. Patient states she is here because she has been constipated for the past 3-4 days and she was having a bowel movement tonight only a little balls are coming out and she is fortunate to come out and she was massaging her but she is trying to help with resolve itself and as she was rubbing it she got lightheaded and she passed out and the daughters catching her before she hit the floor. When she did not land on the floor and woke back up patient vomited up the water she had just drank prior to passing out. They also informed me that she has just returned from [facility] where they found a solitary nodule in her brain and she had surgical radiation of that nodule on Sunday. She got one treatment at [place] and was put on a one-time dose of steroids to help with the swelling and sent home. They contacted Dr. Mistry who did the radiation intervention and he informed them that she probably needed to be treated at the ER and that if there was any indication that she might have swelling of the brain she would need to have steroids again. Patient is very fixated with the constipation. She also has memory issues sustained from when she was getting the chemotherapy. Daughter states that she gets very histrionic and that she forgets what she has said. That is not a new thing tonight. Daughter states that her ambulation is becoming more and more difficult she is using a shuffling type of action. She does not use her walker and she is supposed to. She is off balance a lot even prior to this radiation surgery of the brain lesion. (PAUL MARQUEZ) - Related Data Allergies/Adverse Reactions: codeine Allergy (Intermediate, Verified 02/20/17 12:27) increased blood sugar Past Medical History - General Information source: Patient, Relative - Social History Smoking Status: Former Smoker Cigarette use (# per day): No Chew tobacco use (# tins/day): No Smoking Education Provided: No Frequency of alcohol use: None Drug Abuse: None Lives with: Family Family History: Reviewed & Not Pertinent Patient has suicidal ideation: No Patient has homicidal ideation: No - Past Medical History Cardiac Medical History: Reports: Hx Hypertension Denies: Hx Heart Attack Pulmonary Medical History: Denies: Hx Asthma Neurological Medical History: Denies: Hx Cerebrovascular Accident, Hx Seizures Renal/ Medical History: Denies: Hx Peritoneal Dialysis GI Medical History: Denies: Hx Hepatitis, Hx Hiatal Hernia, Hx Ulcer Infectious Medical History: Denies: Hx Hepatitis Past Surgical History: Denies: Hx Mastectomy, Hx Open Heart Surgery, Hx Pacemaker <PAUL MARQUEZ - Last Filed: 02/04/18 09:43> Review of Systems - Review of Systems Constitutional: See HPI, Weakness EENT: No symptoms reported Cardiovascular: No symptoms reported Respiratory: No symptoms reported Gastrointestinal: Abdominal pain, Constipation Genitourinary: No symptoms reported Female Genitourinary: No symptoms reported Musculoskeletal: No symptoms reported Skin: No symptoms reported Hematologic/Lymphatic: No symptoms reported Neurological/Psychological: No symptoms reported -: Yes All other systems reviewed and negative <PAUL MARQUEZ - Last Filed: 02/04/18 09:43> Physical Exam <YOVANI HALL - Last Filed: 01/28/18 02:21> - Vital signs Interpretation: Hypertensive <PAUL MARQUEZ - Last Filed: 02/04/18 09:43> - Vital signs Vitals: Temp Pulse Resp BP Pulse Ox 98.6 F 71 18 132/62 H 97 01/27/18 16:03 01/27/18 16:03 01/27/18 16:03 01/27/18 16:03 01/27/18 16:03 - Notes Notes: PHYSICAL EXAMINATION: GENERAL: Patient appears to be a well-nourished well-developed 73-year-old female who it time of exam is in no apparent distress. She is awake alert and oriented x4. HEAD: Atraumatic, normocephalic. EYES: Pupils equal round and reactive to light, extraocular movements intact, conjunctiva are normal. ENT: Nares patent, oropharynx clear without exudates. Examination of the head and upper airway showed nasal mucosa to be slightly erythematous and edematous with no rhinorrhea. Posterior pharynx and oral mucosa is appears somewhat dry. No erythema uvula is midline airways patent. NECK: Normal range of motion, supple without lymphadenopathy LUNGS: Breath sounds clear to auscultation bilaterally and equal. No wheezes rales or rhonchi. HEART: Regular rate and rhythm without murmurs ABDOMEN: examination patient's abdomen shows that her abdomen is soft and the bilateral upper quadrants but in the lower quadrants and more firm to palpation and more tender to palpation. Patient has no rigidity or guarding in the lower quadrants. Bowel sounds are present in all 4 quads.. Patient is tender in the suprapubic area to palpation. And she is more firm as stated in the lower quads with some tympany noted in between the lower quadrants in the upper quads. Rectal exam shows there to be a large amount of just at the end of the index finger reach. It feels very hot and clayish in presentation. Very pliable. Female : deferred Musculoskeletal: Normal range of motion, no pitting or edema. No cyanosis. NEUROLOGICAL: . Normal speech. Normal sensory, motor exams patient's gait not tested secondary to balance. Rest of her neurologic exam is intact. NIH score of 2 PSYCH: Normal mood, normal affect. SKIN: Warm, Dry, normal turgor, no rashes or lesions noted. (PAUL MARQUEZ) Course - Laboratory Result Diagrams: 01/27/18 17:12 01/27/18 17:12 <YOVANI HALL - Last Filed: 01/28/18 02:21> - Laboratory Result Diagrams: 01/27/18 17:12 01/27/18 17:12 <PAUL MARQUEZ - Last Filed: 02/04/18 09:43> - Re-evaluation Re-evalutation: Urinalysis was obtained, does not show infection. Borderline hydronephrosis does not appear to be from a stone or infection. Patient was reevaluated at bedside. She had very large successful result from enema, abdominal pain is resolved, no current symptoms. No current abdominal pain or flank pain. No vomiting or fever. I called and spoke with patient's oncologist, Dr. See, updated him on the patient's visit, complaints, workup. No additional recommendations at this time. Patient with no additional complaints or concerns , discussed with family, provided with results from imaging, discussed return precautions, they state appreciation and agreement. (YOVANI HALL) 01/27/18 19:59 During my initial evaluation the patient the family indicated to me that the provider Dr. Mistry up at [facility] who did the interventional radiation procedure had requested that when we had patient worked up here at the hospital we give him a personal call. Gave them his personal cell phone number and that is [phone]. CT of the head came back with no acute findings primarily no mass shift. No sign of a CVA. But he was requesting that we contact him to make sure there was nothing that may have been brought on by his procedure. Patient's neurologic exam was intact 100% of the CT negative so I called Dr. Mistry back and informed him that this was more of a vasovagal type of a presentation and that I did not believe she needed to have any steroids but requested his input. He felt that given the information I gave to him at this time she does not need any more steroids that he felt that there really had not been a connection but he wanted to be certain and that is why he requested we call him. So at this point time he is recommending no steroids and regular follow-up as already scheduled. 01/27/18 20:02 I have taken-Fraint the mid-level for shift boss into the family room and introduced him to them and we all covered what was expected next. We requested the patient get a straight cath urine since she is not been able to give us one so far. And that we were going to proceed with the soapsuds enema with mineral oil. At this time the family is in agreement as this patient. I also informed him that I would contact Dr. Mistry which I already have done. And I am turning over patient care to live in. (PAUL MARQUEZ) - Vital Signs Vital signs: Temp Pulse Resp BP Pulse Ox 98.9 F 105 H 14 121/70 98 01/27/18 21:46 01/27/18 21:46 01/27/18 21:46 01/27/18 21:46 01/27/18 21:46 - Laboratory Laboratory results interpreted by me: 01/27/18 01/27/18 01/27/18 17:12 17:12 20:16 RBC 2.99 L Hgb 10.1 L Hct 29.2 L MCV 98 H MCH 33.7 H RDW 16.4 H Lymphocytes % 11.9 L Chloride 97 L Glucose 153 H Calcium 10.3 H Urine Glucose (UA) 150 H Discharge <YOVANI HALL - Last Filed: 01/28/18 02:21> <PAUL MARQUEZ - Last Filed: 02/04/18 09:43> - Discharge Clinical Impression: Metastatic breast cancer Episode of syncope Qualifiers: Syncope type: vasovagal syncope Qualified Code(s): R55 - Syncope and collapse Abdominal pain Qualifiers: Abdominal location: generalized Qualified Code(s): R10.84 - Generalized abdominal pain Condition: Stable Disposition: HOME, SELF-CARE Additional Instructions: Your evaluation today is most consistent with passing out from vasovagal syncope (probably from straining with bowel movement). The CAT scan of your brain does not show any acute findings, the CAT scan of your abdomen/pelvis shows questionable mild hydronephrosis, questionable cysts on the ovarian area, these can be followed outpatient. We spoke with both Dr. Mistry and Dr. See. Follow-up in the office for additional evaluation and management. Return for any concerning symptoms including fever, vomiting, severe abdominal pain, passing out again, or any other concerning symptoms. Referrals: ROCHELLE SEE MD [Primary Care Provider] - Follow up as needed
--- NOTE | 2018-01-27 19:13 | RADIOLOGY REPORT (SQ) ---
EXAM DESCRIPTION: CT HEAD WITHOUT COMPLETED DATE/TIME: 01/27/2018 7:03 pm REASON FOR STUDY: syncope COMPARISON: None. TECHNIQUE: Axial images acquired through the brain without intravenous contrast. Images reviewed wi th bone, brain and subdural windows. Additional sagittal and coronal reconstructions were generated. Images stored on PACS. All CT scanners at this facility use dose modulation, iterative reconstruction, and/or weight based d osing when appropriate to reduce radiation dose to as low as reasonably achievable (ALARA). [facility]: Dose Right [facility]: CareDose [facility]: Dose Right [facility]: Teradose 4D [facility]: [employer] RADIATION DOSE: CT Rad equipment meets quality standard of care and radiation dose reduction techniq ues were employed. CTDIvol: 53.2 mGy. DLP: 1070 mGy-cm. mGy. LIMITATIONS: None. FINDINGS: VENTRICLES: Normal size and contour. CEREBRUM: No masses. No hemorrhage. No midline shift. No evidence for acute infarction. Normal gra y/white matter differentiation. No areas of low density in the white matter. CEREBELLUM: No masses. No hemorrhage. No alteration of density. No evidence for acute infarction. EXTRAAXIAL SPACES: No fluid collections. No masses. ORBITS AND GLOBE: No intra- or extraconal masses. Normal contour of globe without masses. CALVARIUM: No fracture. PARANASAL SINUSES: Small polyp versus mucous retention cyst of the right maxillary sinus. Remainder of the visualized paranasal sinuses are clear. SOFT TISSUES: No mass or hematoma. OTHER: No other significant finding. IMPRESSION: NO ACUTE INTRACRANIAL IMAGING FINDINGS. EVIDENCE OF ACUTE STROKE: NO. COMMENT: Quality ID # [id number]: Final reports with documentation of one or more dose reduction techniques (e.g., Automated exposure control, adjustment of the mA and/or kV according to patient size, use of iterative reconstruction technique) TECHNICAL DOCUMENTATION: JOB ID: [id number] [employer]- All Rights Reserved Reading location - IP/workstation name: [email or web address]
--- NOTE | 2018-01-27 19:29 | RADIOLOGY REPORT (SQ) ---
EXAM DESCRIPTION: CT ABD/PELVIS WITH IV ONLY COMPLETED DATE/TIME: 01/27/2018 7:04 pm REASON FOR STUDY: ? obstruction/ DO not use contrast if creatine is COMPARISON: 05/30/2017 TECHNIQUE: CT scan of the abdomen and pelvis performed using helical scanning technique with dynamic intravenous contrast injection. No oral contrast. Images reviewed with lung, soft tissue, and bone windows. Reconstructed coronal and sagittal MPR images reviewed. Delayed images for evaluation of the urinary system also acquired. All images stored on PACS. All CT scanners at this facility use dose modulation, iterative reconstruction, and/or weight based d osing when appropriate to reduce radiation dose to as low as reasonably achievable (ALARA). [facility]: Dose Right [facility]: CareDose [facility]: Dose Right [facility]: Teradose 4D [facility]: FreeATM CONTRAST TYPE AND DOSE: contrast/concentration: Isovue 350.00 mg/ml; Total Contrast Delivered: 77.0 ml; Total Saline Delivered: 67.0 ml RENAL FUNCTION: Not available. RADIATION DOSE: CT Rad equipment meets quality standard of care and radiation dose reduction techniq ues were employed. CTDIvol: 6.4 - 8.9 mGy. DLP: 854 mGy-cm.. LIMITATIONS: None. FINDINGS: LOWER CHEST: No significant findings. No nodules or infiltrates. LIVER: Normal size. No masses. No dilated ducts. SPLEEN: Normal size. No focal lesions. PANCREAS: No masses. No significant calcifications. No adjacent inflammation or peripancreatic fluid collections. Pancreatic duct not dilated. GALLBLADDER: No identified stones by CT criteria. No inflammatory changes to suggest cholecystitis. ADRENAL GLANDS: No significant masses or asymmetry. RIGHT KIDNEY AND URETER: Homogeneous enhancement. Mild fullness in the right renal collecting system and pelvis. Proximal ureters slightly dilated to the level of the pelvic brim. Subsequent to this, it is decompressed. No focal obstructing mass or stones identified, however. LEFT KIDNEY AND URETER: No solid masses. No significant calcification. No hydronephrosis or hydrouret er. AORTA AND VESSELS: Infrarenal aneurysm, just over 3 cm. Heavy vascular calcification. Similar appea kimberlyn to prior. Extensive calcified plaque in the iliac vessels. Grossly patent major arterial stru ctures otherwise, but calcification limits. Venous structures are free of clot. RETROPERITONEUM: No retroperitoneal adenopathy, hemorrhage or masses. BOWEL AND PERITONEAL CAVITY: Large amount of stool in the colon. Sigmoid diverticulosis without acti ve diverticulitis. No mechanical bowel obstruction, ascites or abnormal gas. APPENDIX: Normal. PELVIS: Chronic right ovarian region cyst measuring just over 3 cm. Bladder unremarkable. No pelvic free fluid or developing mass. ABDOMINAL WALL: No abdominal wall mass or hernia. BONES: New sclerotic lesions in the lower thoracic vertebral bodies particularly T10 and T11. Progre ssive sclerotic foci in the pelvic bones. Findings are considered suspicious for osseous metastatic disease. OTHER: No other significant finding. IMPRESSION: 1. Bone changes suggesting osseous metastatic disease. Patient appears to have some hi story of malignancy but I do not have clinical details available at the time of this interpretation. 2. Mild right hydronephrosis is suggested, etiology indeterminate. 3. Chronic small cysts in the r egion of the right ovary, nonprogressive. Followup of asymptomatic adnexal cysts found on CT or MRI in reproductive age patients *Benign cyst ?5 cm: No followup needed Note: If cyst is clinically symptomatic or otherwise concerning, other followup may be necessary. Bas ed on Managing Incidental Findings on Abdominal and Pelvic CT and MRI, Part 1: White Paper of the ACR Incidental Findings Committee II on Adnexal Findings J Am [facility]iol 2013;10:675-681. TECHNICAL DOCUMENTATION: JOB ID: [id number] Quality ID # [id number]: Final reports with documentation of one or more dose reduction techniques (e.g., Au tomated exposure control, adjustment of the mA and/or kV according to patient size, use of iterative reconstruction technique) 2010 [employer]- All Rights Reserved Reading location - IP/workstation name: [email or web address]
[2018-01-27] MEDS ORDERED: MINERAL OIL 30 ML UDCUP PR ONE (19:47)
[2018-01-27 20:41] LABS: APPEARANCE,URINE CLEAR; BILIRUBIN,URINE NEGATIVE (NEGATIVE); COLOR,URINE COLORLESS; GLUCOSE, URINE 150 mg/dL (NEGATIVE); KETONES,URINE NEGATIVE (NEGATIVE); LEUKOCYTE ESTERASE,URINE NEGATIVE (NEGATIVE); NITRITE,URINE NEGATIVE (NEGATIVE); PROTEIN,URINE NEGATIVE (NEGATIVE); URINE SPECIFIC GRAVITY 1.026; UROBILINOGEN,URINE NEGATIVE mg/dL (<2.0)
--- NOTE | 2018-01-27 21:10 | EKG REPORT ---
SEVERITY:- NORMAL ECG - SINUS RHYTHM : Confirmed by: Mihir Santana MD 27-Jan-2018 21:09:35
[2018-01-27 21:56] VITALS: BP 121/70
== END 2018-01-27 21:59 | disposition home or self-care (01) ==
LOC: ER 15:55
DX: R55 Syncope and collapse (principal); K59.00 Constipation, unspecified; R11.2 Nausea with vomiting, unspecified; R10.84 Generalized abdominal pain; C79.81 Secondary malignant neoplasm of breast; R26.2 Difficulty in walking, not elsewhere classified; I10 Essential (primary) hypertension; R53.1 Weakness; Z92.21 Personal history of antineoplastic chemotherapy; Z92.3 Personal history of irradiation; Z88.5 Allergy status to narcotic agent; Z87.891 Personal history of nicotine dependence
CPT/HCPCS: 93005; 36591; 99285; 51701; 36415; 85025; 80053; 81001; 84484; 71045; 70450; 74177; 93010; J3490; J7040

== ENCOUNTER → 2018-02-27 | Outpatient (CLI) | payer MEDICARE ==
[2018-02-27 09:55] LABS: ABSOLUTE EOSINOPHILS # (AUTO) 0.1 10^3/uL (0.0-0.6); ABSOLUTE LYMPHOCYTES (AUTO) 1.4 10^3/uL (0.5-4.7); ABSOLUTE MONOCYTES (AUTO) 0.6 10^3/uL (0.1-1.4); ABSOLUTE NEUT (AUTO) 3.4 10^3/uL (1.7-8.2); BASOPHILS % (AUTO) 0.3 % (0-2); EOSINOPHILS % (AUTO) 2.5 % (0-6); HEMATOCRIT 28.7 % (36.0-47.0); HEMOGLOBIN 10.1 g/dL (12.0-15.5); LYMPHOCYTES % (AUTO) 25.3 % (13-45); MEAN CORPUSCULAR HEMOGLOBIN 33.8 pg (27.0-33.4); MEAN CORPUSCULAR VOLUME 97 fl (80-97); MONOCYTES % (AUTO) 10.3 % (3-13); PLATELET COUNT 237 10^3/uL (150-450); RED BLOOD COUNT 2.97 10^6/uL (3.72-5.28); RED CELL DISTRIBUTION WIDTH 15.9 % (11.5-14.0); SEGMENTED NEUTROPHILS % (AUTO) 61.6 % (42-78); TOTAL CELLS COUNTED % (AUTO) 100 %; WHITE BLOOD COUNT 5.6 10^3/uL (4.0-10.5)
[2018-02-27 10:18] LABS: ALANINE AMINOTRANSFERASE 14 U/L (9-52); ALBUMIN 4.6 g/dL (3.5-5.0); ALKALINE PHOSPHATASE 52 U/L (38-126); ANION GAP 14 (5-19); ASPARTATE AMINO TRANSFERASE 21 U/L (14-36); BILIRUBIN,DIRECT 0.2 mg/dL (0.0-0.4); BILIRUBIN,TOTAL 0.4 mg/dL (0.2-1.3); BLOOD UREA NITROGEN 25 mg/dL (7-20); CALCIUM 10.1 mg/dL (8.4-10.2); CARBON DIOXIDE 30 mmol/L (22-30); CHLORIDE 101 mmol/L (98-107); CHOLESTEROL 156.39 mg/dL (0-200); GLUCOSE 102 mg/dL (75-110); POTASSIUM 3.9 mmol/L (3.6-5.0); SODIUM 144.7 mmol/L (137-145); TOTAL PROTEIN 7.8 g/dL (6.3-8.2); TRIGLYCERIDES 118 mg/dL (<150)
[2018-02-27 10:29] LABS: DIRECT LDL 78 mg/dL (<100)
[2018-02-28 12:38] LABS: CREATININE URINE 87.8 mg/dL (Not Estab.); MICROALBUMIN URINE 106.5 ug/mL (Not Estab.)
== END ==
LOC: LAB 09:09
PROVIDERS: ATTEND Family Medicine Geriatric Medicine
DX: E11.9 Type 2 diabetes mellitus without complications (principal); Z79.899 Other long term (current) drug therapy; I10 Essential (primary) hypertension; E78.5 Hyperlipidemia, unspecified
CPT/HCPCS: 36415; 80053; 80061; 82043; 82570; 83036; 85025

== ENCOUNTER → 2018-06-05 | Outpatient (CLI) | payer MEDICARE ==
[2018-06-05 10:07] LABS: ANION GAP 9 (5-19); BLOOD UREA NITROGEN 28 mg/dL (7-20); CALCIUM 10.5 mg/dL (8.4-10.2); CARBON DIOXIDE 30 mmol/L (22-30); CHLORIDE 101 mmol/L (98-107); GLUCOSE 194 mg/dL (75-110); POTASSIUM 4.4 mmol/L (3.6-5.0); SODIUM 139.6 mmol/L (137-145)
[2018-06-06 10:38] LABS: MICROALBUMIN URINE 51.3 ug/mL (Not Estab.)
== END ==
LOC: LAB 08:43
PROVIDERS: ATTEND Family Medicine Geriatric Medicine
DX: E11.22 Type 2 diabetes mellitus with diabetic chronic kidney disease (principal); N18.3 Chronic kidney disease, stage 3 (moderate); Z79.899 Other long term (current) drug therapy
CPT/HCPCS: 36415; 80048; 82043; 82570; 83036

== ENCOUNTER → 2018-08-08 | Outpatient (CLI) | payer MEDICARE | LOC: OD 12:33 | PROVIDERS: ATTEND Specialist | DX: I25.10 Atherosclerotic heart disease of native coronary artery without angina pectoris (principal); Z98.61 Coronary angioplasty status; I34.0 Nonrheumatic mitral (valve) insufficiency; R53.83 Other fatigue; I35.8 Other nonrheumatic aortic valve disorders; R06.02 Shortness of breath; R06.09 Other forms of dyspnea; Z79.899 Other long term (current) drug therapy | CPT/HCPCS: 36415; 84550 ==

== ENCOUNTER 2018-09-01 13:03 | Inpatient (IN) | payer MEDICARE ==
--- NOTE | 2018-09-01 13:26 | ER Document Report ---
ED Medical Screen (RME) - General Chief Complaint: Fever Stated Complaint: FEVER Time Seen by Provider: 09/01/18 13:23 Primary Care Provider: LA FLETCHER MD [Primary Care Provider] - Follow up as needed Mode of Arrival: Wheelchair Information source: Patient Notes: Patient presents to the emergency department with reports of fever inflamed chest wall right breast. Patient does have a history of breast cancer. Stage IV. Dr. Hernandez has called ahead request that blood culture urine cultures to be done he also suggest broad-spectrum antibiotic as soon as possible. No complaints of vomiting diarrhea. Reports right breast inflamed tight. I have greeted and performed a rapid initial assessment of this patient. A comprehensive ED assessment and evaluation of the patient, analysis of test results and completion of the medical decision making process will be conducted by additional ED providers. Dictation of this chart was performed using voice recognition software; therefore, there may be some unintended grammatical errors. TRAVEL OUTSIDE OF THE [place] IN LAST 30 DAYS: No - Related Data Allergies/Adverse Reactions: codeine Allergy (Intermediate, Verified 09/01/18 13:04) increased blood sugar Past Medical History - Past Medical History Cardiac Medical History: Reports: Hx Hypertension Denies: Hx Heart Attack Pulmonary Medical History: Denies: Hx Asthma Neurological Medical History: Denies: Hx Cerebrovascular Accident, Hx Seizures Renal/ Medical History: Denies: Hx Peritoneal Dialysis GI Medical History: Denies: Hx Hepatitis, Hx Hiatal Hernia, Hx Ulcer Infectious Medical History: Denies: Hx Hepatitis Past Surgical History: Denies: Hx Mastectomy, Hx Open Heart Surgery, Hx Pacemaker - Immunizations History of Influenza Vaccine for 12/2016 - 05/2017 Season: Refused Physical Exam - Vital signs Vitals: Temp Pulse Resp BP Pulse Ox 100.2 F 89 16 110/67 96 09/01/18 13:10 09/01/18 13:10 09/01/18 13:10 09/01/18 13:10 09/01/18 13:10 Course - Vital Signs Vital signs: Temp Pulse Resp BP Pulse Ox 100.2 F 89 16 110/67 96 09/01/18 13:10 09/01/18 13:10 09/01/18 13:10 09/01/18 13:10 09/01/18 13:10 Doctor's Discharge - Discharge Referrals: LA FLETCHER MD [Primary Care Provider] - Follow up as needed
[2018-09-01] MEDS ORDERED: PIPERACILLIN/TAZOBACTAM 3.375 GM VIAL IV ONE (14:26)
[2018-09-01] MEDS ORDERED: VANCOMYCIN HCL INJ 1000 MG VIAL IV ONE (14:26)
[2018-09-01] MEDS ORDERED: IBUPROFEN 600 MG TABLET PO ONE (14:26)
--- NOTE | 2018-09-01 14:30 | ER Document Report ---
ED Fever - General Chief Complaint: Fever Stated Complaint: FEVER Time Seen by Provider: 09/01/18 13:23 Primary Care Provider: LA FLETCHER MD [ACTIVE STAFF] - Follow up as needed Mode of Arrival: Wheelchair TRAVEL OUTSIDE OF THE [place] IN LAST 30 DAYS: No - HPI Notes: Patient is a 73-year-old female that presents to the emergency department for c waef complaint of fever and right breast swelling. Patient has metastatic breast cancer and had her second dose of the new chemo medication 2 days ago. She states shortly after she started feeling fever he. Patient began having swelling and redness as well as pain in her right breast yesterday. The symptoms worsen today. She did take Tylenol 2 hours prior to presentation in the emergency room for fever. Patient consulted her oncologist Dr. See over the phone who recommended coming to the emergency room. Patient denies cough, congestion, abdominal pain, nausea/vomiting, and dysuria. She denies any drainage from her right nipple as well. Past Medical History: Metastatic breast cancer Past Surgical History: Reviewed in chart Social History: Denies tobacco and alcohol use Family History: Reviewed and noncontributory for presenting illness Allergies: Reviewed, see documented allergy list. REVIEW OF SYSTEMS: CONSTITUTIONAL : fever chills No diaphoresis No recent illness EENT: No vision changes No congestion No sore throat CARDIOVASCULAR: No chest pain No palpitations RESPIRATORY: No shortness of breath No cough No difficulty breathing GASTROINTESTINAL: No abdominal pain No nausea No vomiting No diarrhea GENITOURINARY: Right breast pain No dysuria No hematuria No difficulty urinating MUSCULOSKELETAL: No back pain No leg pain No arm pain SKIN: No rashes Right breast erythema LYMPHATIC: No swollen, enlarged glands. NEUROLOGICAL: No lightheadedness No headache No weakness No paresthesias PSYCHIATRIC: No anxiety No depression PHYSICAL EXAMINATION: Vital signs reviewed, nursing noted reviewed. GENERAL: Well-appearing, well-nourished and in no acute distress. HEAD: Atraumatic, normocephalic. EYES: Eyes appear normal, extraocular movements intact, sclera anicteric, conjunctiva are normal. ENT: nares patent, oropharynx clear without exudates. Moist mucous membranes. NECK: Normal range of motion, supple without lymphadenopathy LUNGS: Breath sounds clear to auscultation bilaterally and equal. No wheezes rales or rhonchi. HEART: Regular rate and rhythm without murmurs ABDOMEN: Soft, nontender, normoactive bowel sounds. No rebound, guarding, or rigidity. No masses appreciated. EXTREMITIES: Nontender, good range of motion, no pitting or edema. : Normal left breast exam. Right breast is very indurated, erythematous, tender to palpation. No appreciable areas of fluctuance or nipple drainage NEUROLOGICAL: No focal neurological deficits. Moves all extremities spontaneously Motor and sensory grossly intact on exam. PSYCH: Normal mood, normal affect. SKIN: Warm, Dry, normal turgor, erythema and induration to the entire right breast without extension into the axilla - Related Data Allergies/Adverse Reactions: codeine Allergy (Intermediate, Verified 09/01/18 13:04) increased blood sugar Past Medical History - General Information source: Patient - Social History Smoking Status: Former Smoker Chew tobacco use (# tins/day): No Frequency of alcohol use: None Drug Abuse: None Family History: Reviewed & Not Pertinent Patient has suicidal ideation: No Patient has homicidal ideation: No - Past Medical History Cardiac Medical History: Reports: Hx Hypertension Denies: Hx Heart Attack Pulmonary Medical History: Denies: Hx Asthma Neurological Medical History: Denies: Hx Cerebrovascular Accident, Hx Seizures Renal/ Medical History: Denies: Hx Peritoneal Dialysis GI Medical History: Denies: Hx Hepatitis, Hx Hiatal Hernia, Hx Ulcer Infectious Medical History: Denies: Hx Hepatitis Past Surgical History: Denies: Hx Mastectomy, Hx Open Heart Surgery, Hx Pacemaker Physical Exam - Vital signs Vitals: Temp Pulse Resp BP Pulse Ox 100.2 F 89 16 110/67 96 09/01/18 13:10 09/01/18 13:10 09/01/18 13:10 09/01/18 13:10 09/01/18 13:10 Course - Re-evaluation Re-evalutation: 09/01/18 14:29 Vitals reviewed. Nursing notes reviewed. Patient is febrile presentation and took Tylenol 2 hours prior to presentation. She will be given ibuprofen for further pain and fever control. Patient has significant mastitis on the right with no appreciable area of fluctuance. Ultrasound will be ordered to evaluate for underlying abscess in the right breast. She did show me pictures that she took yesterday and the erythema is significantly worse today. Patient has been ordered broad-spectrum antibiotics. Because of her chemotherapy she will have complete work-up for other sources of infection including chest x-ray and urinalysis. Blood cultures have been ordered. 09/01/18 15:55 Patient's care was discussed with Dr. See who agrees with current plan of care and admission and will follow the patient on consultation. Patient's lab w ork shows no elevated lactate or WBC count. She is not currently septic. She does have renal insufficiency which is around her baseline and improved from the previous test. Patient has a negative chest x-ray and urinalysis. She has no focal abdominal tenderness. I believe her right breast is the source of her infection. Patient's care was discussed with Dr. Garber for admission. He states he would like to evaluate her prior to excepting admission. Currently awaiting on his evaluation of the patient in the emergency room. Laboratory 09/01/18 09/01/18 09/01/18 13:55 13:55 13:55 WBC 6.7 RBC 3.42 L Hgb 10.2 L Hct 30.4 L MCV 89 MCH 29.9 MCHC 33.6 RDW 17.8 H Plt Count 103 L Seg Neutrophils % 87.2 H Lymphocytes % 11.0 L Monocytes % 0.8 L Eosinophils % 0.9 Basophils % 0.1 Absolute Neutrophils 5.8 Absolute Lymphocytes 0.7 Absolute Monocytes 0.1 Absolute Eosinophils 0.1 Absolute Basophils 0.0 Sodium 137.5 Potassium 3.9 Chloride 102 Carbon Dioxide 28 Anion Gap 8 BUN 30 H Creatinine 1.45 H Est GFR ( Amer) 43 L Est GFR (Non-Af Amer) 35 L Glucose 106 POC Glucose Lactic Acid 0.9 Calcium 9.8 Total Bilirubin 0.6 Direct Bilirubin 0.2 Neonat Total Bilirubin Not Reportable Neonat Direct Bilirubin Not Reportable Neonat Indirect Bili Not Reportable AST 23 ALT 23 Alkaline Phosphatase 49 Total Protein 7.3 Albumin 4.1 Urine Color Urine Appearance Urine pH Ur Specific [place] Urine Protein Urine Glucose (UA) Urine Ketones Urine Blood Urine Nitrite Urine Bilirubin Urine Urobilinogen Ur Leukocyte Esterase Urine WBC (Auto) Urine RBC (Auto) Urine Bacteria (Auto) Squamous Epi Cells Auto Urine Mucus (Auto) Urine Ascorbic Acid 09/01/18 09/01/18 13:55 14:07 WBC RBC Hgb Hct MCV MCH MCHC RDW Plt Count Seg Neutrophils % Lymphocytes % Monocytes % Eosinophils % Basophils % Absolute Neutrophils Absolute Lymphocytes Absolute Monocytes Absolute Eosinophils Absolute Basophils Sodium Potassium Chloride Carbon Dioxide Anion Gap BUN Creatinine Est GFR ( Amer) Est GFR (Non-Af Amer) Glucose POC Glucose 63 L Lactic Acid Calcium Total Bilirubin Direct Bilirubin Neonat Total Bilirubin Neonat Direct Bilirubin Neonat Indirect Bili AST ALT Alkaline Phosphatase Total Protein Albumin Urine Color YELLOW Urine Appearance CLOUDY Urine pH 5.0 Ur Specific [place] 1.020 Urine Protein 100 H Urine Glucose (UA) 150 H Urine Ketones NEGATIVE Urine Blood SMALL H Urine Nitrite NEGATIVE Urine Bilirubin NEGATIVE Urine Urobilinogen NEGATIVE Ur Leukocyte Esterase NEGATIVE Urine WBC (Auto) 3 Urine RBC (Auto) 1 Urine Bacteria (Auto) TRACE Squamous Epi Cells Auto 2 Urine Mucus (Auto) FEW Urine Ascorbic Acid NEGATIVE Chest X-Ray 09/01/18 14:01 IMPRESSION: NO ACUTE RADIOGRAPHIC FINDING IN THE CHEST. 09/01/18 17:15 Patient was evaluated by Dr. Garber in the emergency room who will admit for further care - Vital Signs Vital signs: Temp Pulse Resp BP Pulse Ox 99 F 89 16 95/49 L 96 09/01/18 15:00 09/01/18 13:10 09/01/18 13:10 09/01/18 17:03 09/01/18 17:03 - Laboratory Result Diagrams: 09/01/18 13:55 09/01/18 13:55 Laboratory results interpreted by me: 09/01/18 09/01/18 09/01/18 13:55 13:55 13:55 RBC 3.42 L Hgb 10.2 L Hct 30.4 L RDW 17.8 H Plt Count 103 L Seg Neutrophils % 87.2 H Lymphocytes % 11.0 L Monocytes % 0.8 L BUN 30 H Creatinine 1.45 H Est GFR ( Amer) 43 L Est GFR (Non-Af Amer) 35 L POC Glucose Urine Protein 100 H Urine Glucose (UA) 150 H Urine Blood SMALL H 09/01/18 09/01/18 14:07 16:28 RBC Hgb Hct RDW Plt Count Seg Neutrophils % Lymphocytes % Monocytes % BUN Creatinine Est GFR ( Amer) Est GFR (Non-Af Amer) POC Glucose 63 L 243 H Urine Protein Urine Glucose (UA) Urine Blood Discharge - Discharge Clinical Impression: Hypoglycemia, Mastitis in female Fever Qualifiers: Fever type: unspecified Qualified Code(s): R50.9 - Fever, unspecified Condition: Stable Disposition: ADMITTED INPATIENT Admitting Provider: Jcarlos (Hospitalist) Unit Admitted: Telemetry Referrals: LA FLETCHER MD [ACTIVE STAFF] - Follow up as needed
--- NOTE | 2018-09-01 14:38 | RADIOLOGY REPORT (SQ) ---
EXAM DESCRIPTION: CHEST SINGLE VIEW COMPLETED DATE/TIME: 09/01/2018 2:13 pm REASON FOR STUDY: fever COMPARISON: 01/27/2018 and earlier EXAM PARAMETERS: NUMBER OF VIEWS: One view. TECHNIQUE: Single frontal radiographic view of the chest acquired. RADIATION DOSE: NA LIMITATIONS: None. FINDINGS: LUNGS AND PLEURA: Unchanged prominent lower lobe predominant interstitial markings bilater ally. No focal consolidation. No pleural effusion or pneumothorax. MEDIASTINUM AND HILAR STRUCTURES: No masses. Contour normal. HEART AND VASCULAR STRUCTURES: Heart normal in size. Normal vasculature. BONES: No acute findings. HARDWARE: Unchanged positioning of the left-sided chest port. Metallic clips project over the soft t issues of the left axilla. OTHER: No other significant finding. IMPRESSION: NO ACUTE RADIOGRAPHIC FINDING IN THE CHEST. TECHNICAL DOCUMENTATION: JOB ID: [id number] [employer]- All Rights Reserved Reading location - IP/workstation name: [email or web address]
[2018-09-01 14:40] LABS: ABSOLUTE EOSINOPHILS # (AUTO) 0.1 10^3/uL (0.0-0.6); ABSOLUTE LYMPHOCYTES (AUTO) 0.7 10^3/uL (0.5-4.7); ABSOLUTE MONOCYTES (AUTO) 0.1 10^3/uL (0.1-1.4); ABSOLUTE NEUT (AUTO) 5.8 10^3/uL (1.7-8.2); BASOPHILS % (AUTO) 0.1 % (0-2); EOSINOPHILS % (AUTO) 0.9 % (0-6); HEMATOCRIT 30.4 % (36.0-47.0); HEMOGLOBIN 10.2 g/dL (12.0-15.5); MEAN CORPUSCULAR HEMOGLOBIN 29.9 pg (27.0-33.4); MEAN CORPUSCULAR HGB CONC 33.6 g/dL (32.0-36.0); MEAN CORPUSCULAR VOLUME 89 fl (80-97); MONOCYTES % (AUTO) 0.8 % (3-13); PLATELET COUNT 103 10^3/uL (150-450); RED BLOOD COUNT 3.42 10^6/uL (3.72-5.28); RED CELL DISTRIBUTION WIDTH 17.8 % (11.5-14.0); SEGMENTED NEUTROPHILS % (AUTO) 87.2 % (42-78); TOTAL CELLS COUNTED % (AUTO) 100 %; WHITE BLOOD COUNT 6.7 10^3/uL (4.0-10.5)
[2018-09-01 14:48] LABS: APPEARANCE,URINE CLOUDY; BILIRUBIN,URINE NEGATIVE (NEGATIVE); COLOR,URINE YELLOW; GLUCOSE, URINE 150 mg/dL (NEGATIVE); KETONES,URINE NEGATIVE (NEGATIVE); LEUKOCYTE ESTERASE,URINE NEGATIVE (NEGATIVE); NITRITE,URINE NEGATIVE (NEGATIVE); PROTEIN,URINE 100 mg/dL (NEGATIVE); UROBILINOGEN,URINE NEGATIVE mg/dL (<2.0)
[2018-09-01 15:23] LABS: ALANINE AMINOTRANSFERASE 23 U/L (9-52); ALBUMIN 4.1 g/dL (3.5-5.0); ALKALINE PHOSPHATASE 49 U/L (38-126); ANION GAP 8 (5-19); ASPARTATE AMINO TRANSFERASE 23 U/L (14-36); BILIRUBIN,DIRECT 0.2 mg/dL (0.0-0.4); BILIRUBIN,TOTAL 0.6 mg/dL (0.2-1.3); BLOOD UREA NITROGEN 30 mg/dL (7-20); CALCIUM 9.8 mg/dL (8.4-10.2); CARBON DIOXIDE 28 mmol/L (22-30); CHLORIDE 102 mmol/L (98-107); GLUCOSE 106 mg/dL (75-110); POTASSIUM 3.9 mmol/L (3.6-5.0); SODIUM 137.5 mmol/L (137-145); TOTAL PROTEIN 7.3 g/dL (6.3-8.2)
--- NOTE | 2018-09-01 16:25 | RADIOLOGY REPORT (SQ) ---
EXAM DESCRIPTION: U/S CHEST COMPLETED DATE/TIME: 09/01/2018 4:09 pm REASON FOR STUDY: right breast infection, eval for abscess on right COMPARISON: Same day chest radiograph TECHNIQUE: Right breast ultrasound LIMITATIONS: None. FINDINGS: Ultrasound of the right breast was performed with survey images taken. No discrete solid or cystic mass. There is diffuse soft tissue thickening and edema. IMPRESSION: No discrete fluid collection, right breast. Skin thickening with soft tissue edema whic h can be seen with cellulitis. Recommend diagnostic ultrasound with possible mammogram after the com pletion of antibiotic treatment to ensure resolution COMMENT: BI-RADS 3, probably benign. TECHNICAL DOCUMENTATION: JOB ID: [id number] [employer]- All Rights Reserved Reading location - IP/workstation name: [email or web address]
[2018-09-01] MEDS ORDERED: VANCOMYCIN HCL 0 MG in DEXTROSE 5%-WATER 250 ML IV NR (16:30)
[2018-09-01] MEDS ORDERED: ACETAMINOPHEN 325 MG TABLET PO PRN (16:31)
[2018-09-01] MEDS ORDERED: NORMAL SALINE 1000 ML 1,000 ML IV ONE (16:34)
--- NOTE | 2018-09-01 16:49 | PDOC H&P ---
History of Present Illness Admission Date/PCP: ROCHELLE HUTSON MD History of Present Illness: KENNEY FARLEY is a 73 year old female with a history of bilateral breast cancer that recently returned after several years and who is currently on chemotherapy presents with fever at home of 102 F and right breast erythema and swelling. She said it started 3 days ago. The swelling was very subtle as was the erythema. Gradually progressed since then. She now has a large, red, swoll en, and tender right breast. There is been no exudate. She has not had any recent procedures on the breast, with her biopsy coming sometime last year. There is no evidence of any recent wound. She has not taken any antibiotics for this since it started. She is being admitted for IV antibiotics. Past Medical History Cardiac Medical History: Reports: Hypertension Denies: Myocardial Infarction Pulmonary Medical History: Denies: Asthma Neurological Medical History: Denies: Seizures GI Medical History: Denies: Hepatitis, Hiatal Hernia Hematology: Reports: Anemia Denies: Sickle Cell Disease Past Surgical History Past Surgical History: Denies: Amputation, Mastectomy, Pacemaker Social History Smoking Status: Former Smoker Family History Family History: Reviewed & Not Pertinent Parental Family History Reviewed: Yes - Diabetes Children Family History Reviewed: Yes - None known Sibling(s) Family History Reviewed.: Yes - Hypertension Medication/Allergy Home Medications: Aspirin [Aspirin EC] 81 mg PO DAILY 01/26/17 Besifloxacin HCl [Besivance 0.6% Oph Susp 5 ml] 1 drop OP ASDIR PRN 01/26/17 Cholecalciferol (Vitamin D3) [Vitamin D3 1000 unit Chewable Tablet] 1,000 unit PO DAILY 01/26/17 Difluprednate [Durezol] 5 ml OP ASDIR PRN 01/26/17 Insulin Glargine,Hum.rec.anlog [Lantus] 25 unit SQ QHS 01/26/17 Metformin HCl [Glucophage] 1,000 mg PO BID 01/26/17 Moxifloxacin HCl [Vigamox 0.5% Oph Soln 3 ml] 1 drop OP ASDIR PRN 01/26/17 Nepafenac [Ilevro] 1.7 ml OP ASDIR PRN 01/26/17 Prednisolone Acetate [Pred Forte] 1 ml OP ASDIR PRN 01/26/17 Ramipril [Altace 10 mg Capsule] 1 cap PO DAILY 01/26/17 Rosuvastatin Calcium 20 mg PO QHS 02/20/17 Allergies/Adverse Reactions: codeine Allergy (Intermediate, Verified 09/01/18 13:04) increased blood sugar Review of Systems All systems: reviewed and no additional remarkable complaints except as stated - All systems were reviewed and were negative except as noted in the HPI Physical Exam Vital Signs: Temp Pulse Resp BP Pulse Ox 99 F 89 16 92/47 L 95 09/01/18 15:00 09/01/18 13:10 09/01/18 13:10 09/01/18 16:30 09/01/18 16:30 Intake & Output 08/31/18 09/01/18 09/02/18 06:59 06:59 06:59 Weight 69.4 kg General appearance: PRESENT: cooperative, disheveled, mild distress Head exam: PRESENT: atraumatic, normocephalic Eye exam: PRESENT: EOMI, PERRLA. ABSENT: conjunctival injection, nystagmus, scl eral icterus Ear exam: PRESENT: normal external ear exam Mouth exam: PRESENT: moist, neck supple Throat exam: ABSENT: post pharyngeal erythema Neck exam: PRESENT: full ROM. ABSENT: carotid bruit, JVD, lymphadenopathy, meningismus, tenderness, thyromegaly Respiratory exam: PRESENT: clear to auscultation jenny, symmetrical, unlabored. ABSENT: accessory muscle use, chest wall tenderness, crackles, prolonged expiratory phas, rhonchi, tachypnea, wheezes Cardiovascular exam: PRESENT: RRR, +S1, +S2 Pulses: PRESENT: normal carotid pulses Vascular exam: PRESENT: normal capillary refill GI/Abdominal exam: PRESENT: normal bowel sounds, soft. ABSENT: distended, guarding, rebound, tenderness Extremities exam: ABSENT: clubbing, pedal edema Musculoskeletal exam: PRESENT: normal inspection. ABSENT: deformity Neurological exam: PRESENT: alert, awake, oriented to person, oriented to place, oriented to time, oriented to situation, CN II-XII grossly intact. ABSENT: motor sensory deficit Psychiatric exam: PRESENT: appropriate affect, normal mood Skin exam: PRESENT: erythema - Right breast is diffusely swollen and erythematous, with some dependent induration. There is axillary adenopathy on the right. No evidence of an open wound or any exudate. Results Laboratory Results: 09/01/18 13:55 09/01/18 13:55 09/01/18 09/01/18 09/01/18 13:55 13:55 13:55 WBC 6.7 RBC 3.42 L Hgb 10.2 L Hct 30.4 L MCV 89 MCH 29.9 MCHC 33.6 RDW 17.8 H Plt Count 103 L Seg Neutrophils % 87.2 H Lymphocytes % 11.0 L Monocytes % 0.8 L Eosinophils % 0.9 Basophils % 0.1 Absolute Neutrophils 5.8 Absolute Lymphocytes 0.7 Absolute Monocytes 0.1 Absolute Eosinophils 0.1 Absolute Basophils 0.0 Sodium 137.5 Potassium 3.9 Chloride 102 Carbon Dioxide 28 Anion Gap 8 BUN 30 H Creatinine 1.45 H Est GFR ( Amer) 43 L Est GFR (Non-Af Amer) 35 L Glucose 106 Lactic Acid 0.9 Calcium 9.8 Total Bilirubin 0.6 AST 23 ALT 23 Alkaline Phosphatase 49 Total Protein 7.3 Albumin 4.1 Urine Color Urine Appearance Urine pH Ur Specific [place] Urine Protein Urine Glucose (UA) Urine Ketones Urine Blood Urine Nitrite Ur Leukocyte Esterase Urine WBC (Auto) Urine RBC (Auto) 09/01/18 13:55 WBC RBC Hgb Hct MCV MCH MCHC RDW Plt Count Seg Neutrophils % Lymphocytes % Monocytes % Eosinophils % Basophils % Absolute Neutrophils Absolute Lymphocytes Absolute Monocytes Absolute Eosinophils Absolute Basophils Sodium Potassium Chloride Carbon Dioxide Anion Gap BUN Creatinine Est GFR ( Amer) Est GFR (Non-Af Amer) Glucose Lactic Acid Calcium Total Bilirubin AST ALT Alkaline Phosphatase Total Protein Albumin Urine Color YELLOW Urine Appearance CLOUDY Urine pH 5.0 Ur Specific [place] 1.020 Urine Protein 100 H Urine Glucose (UA) 150 H Urine Ketones NEGATIVE Urine Blood SMALL H Urine Nitrite NEGATIVE Ur Leukocyte Esterase NEGATIVE Urine WBC (Auto) 3 Urine RBC (Auto) 1 Impressions: Chest X-Ray 09/01/18 14:01 IMPRESSION: NO ACUTE RADIOGRAPHIC FINDING IN THE CHEST. Chest Ultrasound 09/01/18 15:07 IMPRESSION: No discrete fluid collection, right breast. Skin thickening with soft tissue edema which can be seen with cellulitis. Recommend diagnostic ultrasound with possible mammogram after the completion of antibiotic treatment to ensure resolution Assessment and Plan - Diagnosis (1) Mastitis in female Is this a current diagnosis for this admission?: Yes Plan: Fortunately does not meet criteria for sepsis. She is, however, going to need s ome IV antibiotics. Blood cultures have been obtained. Breast ultrasound did not show evidence of a drainable fluid collection. We will monitor her response to therapy and adjust coverage accordingly. We will start with vancomycin and meropenem until we have results from blood cultures. (2) Insulin dependent diabetes mellitus Is this a current diagnosis for this admission?: Yes Plan: We will continue her home Lantus. We will hold metformin for now. (3) Metastatic breast cancer Is this a current diagnosis for this admission?: Yes Plan: She will follow-up with oncology as an outpatient. - Time Time Spent with patient: 70 minutes Time Spent with patient: 35 or more minutes - Inpatient Certification Based on my medical assessment, after consideration of the patient's comorbidities, presenting symptoms, or acuity I expect that the services needed warrant INPATIENT care.: Yes I certify that my determination is in accordance with my understanding of Medicare's requirements for reasonable and necessary INPATIENT services [42 CFR 412.3e].: Yes Medical Necessity: Significant Comorbidiites Make Outpatient Treatment Too Risky, Need Close Monitoring Due to Risk of Patient Decompensation, Need for IV Antibiotics
[2018-09-01] MEDS ORDERED: DEXTROSE 40% GEL 15 GM TUBE X 2 PO PRN (21:30)
[2018-09-01] MEDS ORDERED: GLUCAGON,HUMAN RECOMB 1 MG INJ IM PRN (21:30)
[2018-09-01] MEDS ORDERED: DEXTROSE 50%-WATER SYRINGE 25 GM/50 ML DOSE IV PRN (21:30)
[2018-09-01] MEDS ORDERED: DEXTROSE 40% GEL 15 GM TUBE PO PRN (21:30)
[2018-09-01] MEDS ORDERED: DEXTROSE 50%-WATER SYRINGE 12.5 GM/25 ML DOSE IV PRN (21:30)
[2018-09-01] MEDS ORDERED: MEROPENEM 1 GM VIAL ONE (21:37)
[2018-09-01] MEDS ORDERED: INSULIN GLARGINE,HUM.REC.ANLOG 1,000 UNIT/10 ML VIAL (PYX) SUBCUT ONE (21:51)
[2018-09-01] MEDS: ATORVASTATIN CALCIUM 40 MG TABLET PO SCH (21:55)
[2018-09-01] MEDS: MEROPENEM 1 GM in NORMAL SALINE 50 ML IV SCH (21:56)
[2018-09-01] MEDS: INSULIN LISPRO 100 UNIT/ML 3 ML VIAL SUBCUT SCH (21:57)
[2018-09-01] MEDS: INSULIN GLARGINE,HUM.REC.ANLOG 1,000 UNIT/10 ML VIAL SUBCUT SCH (21:58)
[2018-09-01] MEDS: HEPARIN SOD (PORCINE) 5,000 UNIT/ML 1 ML SYRINGE SUBCUT SCH (22:00)
[2018-09-02] MEDS ORDERED: MEROPENEM 1 GM VIAL ONE (04:51)
[2018-09-02] MEDS: MEROPENEM 1 GM in NORMAL SALINE 50 ML IV SCH ×2 (05:25→17:09)
[2018-09-02] MEDS: HEPARIN SOD (PORCINE) 5,000 UNIT/ML 1 ML SYRINGE SUBCUT SCH ×3 (05:26→21:53)
[2018-09-02 05:41] LABS: HEMATOCRIT 28.3 % (36.0-47.0); HEMOGLOBIN 9.5 g/dL (12.0-15.5); MEAN CORPUSCULAR HGB CONC 33.5 g/dL (32.0-36.0); MEAN CORPUSCULAR VOLUME 90 fl (80-97); RED BLOOD COUNT 3.16 10^6/uL (3.72-5.28); RED CELL DISTRIBUTION WIDTH 17.7 % (11.5-14.0); WHITE BLOOD COUNT 6.6 10^3/uL (4.0-10.5)
[2018-09-02 05:45] LABS: PLATELET COUNT 87 10^3/uL (150-450)
[2018-09-02 05:58] LABS: ANION GAP 7 (5-19); BLOOD UREA NITROGEN 28 mg/dL (7-20); CALCIUM 9.1 mg/dL (8.4-10.2); CARBON DIOXIDE 27 mmol/L (22-30); CHLORIDE 106 mmol/L (98-107); GLUCOSE 141 mg/dL (75-110); POTASSIUM 3.9 mmol/L (3.6-5.0); SODIUM 140.2 mmol/L (137-145)
[2018-09-02] MEDS: INSULIN LISPRO 100 UNIT/ML 3 ML VIAL SUBCUT SCH ×4 (07:25→21:48)
[2018-09-02] MEDS ORDERED: ACETAMINOPHEN 325 MG TABLET PO PRN (07:27)
--- NOTE | 2018-09-02 08:51 | PDOC CONSULTATION ---
Consultation Consult Date: 09/02/18 Attending physician:: TRISTAN AMEZQUITA Provider Consulted: ROCHELLE HUTSON Consult reason:: Right breast cellulitis, fevers, known history of stage IV triple negative breast cancer History of Present Illness Admission Date/PCP: 09/01/18 16:44 ROCHELLE HUTSON MD Patient complains of: New onset redness of the right breast, fevers, chills in the setting of inflammatory stage IV triple negative breast cancer History of Present Illness: KENNEY FARLEY is a 73 year old female with known history of stage IV triple negative breast cancer, almost a 1 year history now, currently on second line therapy with Gemzar. Received that therapy just this Sunday. Initially was tolerating therapy well but on Sunday she began having fever up to 102, breast became red and angry. She called our office and we instructed her to come into the ER. In the ER she had a fever of 101, but did not have any other symptoms of sepsis. However, given the extreme redness of the right breast as well as the febrile nature and her immunocompromise status given the fact that she is on chemotherapy, the decision was made to bring her in for IV antibiotics. She was placed on meropenem and vancomycin appropriately. Cultures are pending now. She is feeling better. The right breast is red, she cannot tell yet whether it is better than yesterday. Past Medical History Cardiac Medical History: Reports: Hypertension Denies: Myocardial Infarction Pulmonary Medical History: Denies: Asthma Neurological Medical History: Denies: Seizures Malignancy Medical History: Reports: Breast Cancer - 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 GI Medical History: Denies: Hepatitis, Hiatal Hernia Psychiatric Medical History: Denies: Depression Hematology: Reports: Anemia Denies: Sickle Cell Disease Past Surgical History Past Surgical History: Denies: Amputation, Mastectomy, Pacemaker Social History Information Source: Patient Smoking Status: Former Smoker Number of Years Smokin Frequency of Alcohol Use: None Hx Recreational Drug Use: No Drugs: None Hx Prescription Drug Abuse: No - Advance Directive Resuscitation Status: Full Code Family History Family History: Reviewed & Not Pertinent Parental Family History Reviewed: Yes Children Family History Reviewed: Yes Sibling(s) Family History Reviewed.: Yes Medication/Allergy Allergies/Adverse Reactions: codeine Allergy (Intermediate, Verified 09/01/18 13:04) increased blood sugar Review of Systems Constitutional: ABSENT: chills, fever(s), headache(s), weight gain, weight loss Eyes: ABSENT: visual disturbances Ears: ABSENT: hearing changes Cardiovascular: ABSENT: chest pain, dyspnea on exertion, edema, orthropnea, palpitations Respiratory: ABSENT: cough, hemoptysis Gastrointestinal: ABSENT: abdominal pain, constipation, diarrhea, hematemesis, hematochezia, nausea, vomiting Genitourinary: ABSENT: dysuria, hematuria Musculoskeletal: ABSENT: joint swelling Integumentary: ABSENT: rash, wounds Neurological: ABSENT: abnormal gait, abnormal speech, confusion, dizziness, focal weakness, syncope Psychiatric: ABSENT: anxiety, depression, homidical ideation, suicidal ideation Endocrine: ABSENT: cold intolerance, heat intolerance, polydipsia, polyuria Hematologic/Lymphatic: ABSENT: easy bleeding, easy bruising Physical Exam Vital Signs: Temp Pulse Resp BP Pulse Ox 99.2 F 75 17 94/42 L 97 09/02/18 07:39 09/02/18 07:39 09/02/18 07:39 09/02/18 07:39 09/02/18 07:39 Intake & Output 09/01/18 09/02/18 09/03/18 06:59 06:59 06:59 Intake Total 1100 Balance 1100 Weight 73.1 kg General appearance: PRESENT: no acute distress, well-developed, well-nourished Head exam: PRESENT: atraumatic, normocephalic Eye exam: PRESENT: conjunctiva pink, EOMI, PERRLA. ABSENT: scleral icterus Ear exam: PRESENT: normal external ear exam Mouth exam: PRESENT: moist, tongue midline Neck exam: ABSENT: carotid bruit, JVD, lymphadenopathy, thyromegaly Respiratory exam: PRESENT: clear to auscultation jenny. ABSENT: rales, rhonchi, wheezes Cardiovascular exam: PRESENT: RRR. ABSENT: diastolic murmur, rubs, systolic murmur Pulses: PRESENT: normal dorsalis pedis pul Vascular exam: PRESENT: normal capillary refill GI/Abdominal exam: PRESENT: normal bowel sounds, soft. ABSENT: distended, guarding, mass, organolmegaly, rebound, tenderness Rectal exam: PRESENT: deferred Extremities exam: PRESENT: full ROM. ABSENT: calf tenderness, clubbing, pedal edema Neurological exam: PRESENT: alert, awake, oriented to person, oriented to place, oriented to time, oriented to situation, CN II-XII grossly intact. ABSENT: motor sensory deficit Psychiatric exam: PRESENT: appropriate affect, normal mood. ABSENT: homicidal ideation, suicidal ideation Skin exam: PRESENT: dry, intact, warm. ABSENT: cyanosis, rash Results Laboratory Results: 09/02/18 05:20 09/02/18 05:20 09/01/18 09/01/18 09/01/18 13:55 13:55 13:55 WBC 6.7 RBC 3.42 L Hgb 10.2 L Hct 30.4 L MCV 89 MCH 29.9 MCHC 33.6 RDW 17.8 H Plt Count 103 L Seg Neutrophils % 87.2 H Lymphocytes % 11.0 L Monocytes % 0.8 L Eosinophils % 0.9 Basophils % 0.1 Absolute Neutrophils 5.8 Absolute Lymphocytes 0.7 Absolute Monocytes 0.1 Absolute Eosinophils 0.1 Absolute Basophils 0.0 Sodium 137.5 Potassium 3.9 Chloride 102 Carbon Dioxide 28 Anion Gap 8 BUN 30 H Creatinine 1.45 H Est GFR ( Amer) 43 L Est GFR (Non-Af Amer) 35 L Glucose 106 Lactic Acid 0.9 Calcium 9.8 Total Bilirubin 0.6 AST 23 ALT 23 Alkaline Phosphatase 49 Total Protein 7.3 Albumin 4.1 Urine Color Urine Appearance Urine pH Ur Specific [place] Urine Protein Urine Glucose (UA) Urine Ketones Urine Blood Urine Nitrite Ur Leukocyte Esterase Urine WBC (Auto) Urine RBC (Auto) 09/01/18 09/02/18 09/02/18 13:55 05:20 05:20 WBC 6.6 RBC 3.16 L Hgb 9.5 L Hct 28.3 L MCV 90 MCH 30.0 MCHC 33.5 RDW 17.7 H Plt Count 87 L Seg Neutrophils % Lymphocytes % Monocytes % Eosinophils % Basophils % Absolute Neutrophils Absolute Lymphocytes Absolute Monocytes Absolute Eosinophils Absolute Basophils Sodium 140.2 Potassium 3.9 Chloride 106 Carbon Dioxide 27 Anion Gap 7 BUN 28 H Creatinine 1.52 H Est GFR ( Amer) 40 L Est GFR (Non-Af Amer) 33 L Glucose 141 H Lactic Acid Calcium 9.1 Total Bilirubin AST ALT Alkaline Phosphatase Total Protein Albumin Urine Color YELLOW Urine Appearance CLOUDY Urine pH 5.0 Ur Specific [place] 1.020 Urine Protein 100 H Urine Glucose (UA) 150 H Urine Ketones NEGATIVE Urine Blood SMALL H Urine Nitrite NEGATIVE Ur Leukocyte Esterase NEGATIVE Urine WBC (Auto) 3 Urine RBC (Auto) 1 Impressions: Chest X-Ray 09/01/18 14:01 IMPRESSION: NO ACUTE RADIOGRAPHIC FINDING IN THE CHEST. Chest Ultrasound 09/01/18 15:07 IMPRESSION: No discrete fluid collection, right breast. Skin thickening with soft tissue edema which can be seen with cellulitis. Recommend diagnostic ultrasound with possible mammogram after the completion of antibiotic treatment to ensure resolution Assessment & Plan - Diagnosis (1) Mastitis in female Is this a current diagnosis for this admission?: Yes Plan: Cellulitis/mastitis of the right breast, continue with meropenem and vancomycin for another 24 hours, if cultures are negative for 48 hours we could consider discontinuing the vancomycin. Once cultures are fully matured at 72 hours, if they are negative, she could be discharged with oral antibiotics. Of course, the redness and mastitis should be improving by then. (2) Metastatic breast cancer Is this a current diagnosis for this admission?: Yes Plan: Patient on outpatient chemotherapy, would like to reinitiate on discharge - Time Time Spent: Greater than 70 Minutes - Inpatient Certification Based on my medical assessment, after consideration of the patient's comorbidities, presenting symptoms, or acuity I expect that the services needed warrant INPATIENT care.: Yes I certify that my determination is in accordance with my understanding of Medicare's requirements for reasonable and necessary INPATIENT services [42 CFR 412.3e].: Yes Medical Necessity: Need for IV Antibiotics, Risk of Complication if Not Cared For in Hospital
[2018-09-02] MEDS: VANCOMYCIN HCL 750 MG in DEXTROSE 5%-WATER 250 ML IV SCH (09:46)
[2018-09-02] MEDS: ASPIRIN 81 MG TABLET, ENT COATED PO SCH (09:46)
--- NOTE | 2018-09-02 17:02 | PDOC PROGRESS REPORT ---
Subjective Progress Note for:: 09/02/18 Subjective:: No adverse events overnight. No more fevers. She still had a lot of redness and swelling of the right breast but it has improved some since yesterday. No evidence of any exudate or fluctuance. Reason For Visit: RIGHT BREAST CELLULITIS Physical Exam Vital Signs: Temp Pulse Resp BP Pulse Ox 99.1 F 83 16 101/45 L 97 09/02/18 12:00 09/02/18 14:00 09/02/18 12:00 09/02/18 12:00 09/02/18 12:00 Intake & Output 09/01/18 09/02/18 09/03/18 06:59 06:59 06:59 Intake Total 1100 772 Balance 1100 772 Weight 73.1 kg General appearance: PRESENT: no acute distress, cooperative, disheveled Respiratory exam: PRESENT: clear to auscultation jenny, symmetrical, unlabored. ABSENT: accessory muscle use, chest wall tenderness, crackles, prolonged expiratory phas, rhonchi, tachypnea, wheezes Cardiovascular exam: PRESENT: RRR, +S1, +S2 Pulses: PRESENT: normal carotid pulses Vascular exam: PRESENT: normal capillary refill GI/Abdominal exam: PRESENT: normal bowel sounds, soft. ABSENT: distended, guarding, rebound, tenderness Extremities exam: ABSENT: clubbing, pedal edema Musculoskeletal exam: PRESENT: normal inspection. ABSENT: deformity Neurological exam: PRESENT: alert, awake, oriented to person, oriented to place, oriented to time, oriented to situation Psychiatric exam: PRESENT: appropriate affect, normal mood Skin exam: PRESENT: other - The right breast still has some swelling and erythema and some tenderness but the erythema overall has improved, and the erythema and swelling have receded from her right axilla and is now localized to the right breast. No exudates. No fluctuance. Results Laboratory Results: 09/02/18 05:20 09/02/18 05:20 09/02/18 09/02/18 05:20 05:20 WBC 6.6 RBC 3.16 L Hgb 9.5 L Hct 28.3 L MCV 90 MCH 30.0 MCHC 33.5 RDW 17.7 H Plt Count 87 L Sodium 140.2 Potassium 3.9 Chloride 106 Carbon Dioxide 27 Anion Gap 7 BUN 28 H Creatinine 1.52 H Est GFR ( Amer) 40 L Est GFR (Non-Af Amer) 33 L Glucose 141 H Calcium 9.1 Impressions: Chest X-Ray 09/01/18 14:01 IMPRESSION: NO ACUTE RADIOGRAPHIC FINDING IN THE CHEST. Chest Ultrasound 09/01/18 15:07 IMPRESSION: No discrete fluid collection, right breast. Skin thickening with soft tissue edema which can be seen with cellulitis. Recommend diagnostic ultrasound with possible mammogram after the completion of antibiotic treatment to ensure resolution Assessment and Plan - Diagnosis (1) Mastitis in female Is this a current diagnosis for this admission?: Yes Plan: We will continue broad-spectrum antibiotics. Plan to monitor blood cultures for couple of days, and if they are positive we will adjust our treatment plan accordingly. If they remain negative and she shows clinical improvement, we should be able to discharge her home on oral antibiotics. (2) Insulin dependent diabetes mellitus Is this a current diagnosis for this admission?: Yes Plan: We will continue her home Lantus. We will hold metformin for now. Watching her creatinine, which is near her baseline. (3) Metastatic breast cancer Is this a current diagnosis for this admission?: Yes Plan: She will follow-up with oncology as an outpatient. - Time Time Spent with patient: 15-24 minutes
[2018-09-02] MEDS: INSULIN GLARGINE,HUM.REC.ANLOG 1,000 UNIT/10 ML VIAL SUBCUT SCH (21:49)
[2018-09-02] MEDS: LACTULOSE SYRUP 20 GM/30 ML UDCUP PO SCH (21:50)
[2018-09-02] MEDS: ATORVASTATIN CALCIUM 40 MG TABLET PO SCH (21:50)
[2018-09-03] MEDS: MEROPENEM 1 GM in NORMAL SALINE 50 ML IV SCH (05:04)
[2018-09-03] MEDS: HEPARIN SOD (PORCINE) 5,000 UNIT/ML 1 ML SYRINGE SUBCUT SCH ×3 (05:05→21:28)
[2018-09-03 05:37] LABS: HEMATOCRIT 28.1 % (36.0-47.0); HEMOGLOBIN 9.5 g/dL (12.0-15.5); MEAN CORPUSCULAR HEMOGLOBIN 30.4 pg (27.0-33.4); MEAN CORPUSCULAR HGB CONC 33.8 g/dL (32.0-36.0); MEAN CORPUSCULAR VOLUME 90 fl (80-97); RED BLOOD COUNT 3.12 10^6/uL (3.72-5.28); WHITE BLOOD COUNT 5.7 10^3/uL (4.0-10.5)
[2018-09-03 05:47] LABS: ANION GAP 7 (5-19); BLOOD UREA NITROGEN 22 mg/dL (7-20); CALCIUM 8.9 mg/dL (8.4-10.2); CARBON DIOXIDE 27 mmol/L (22-30); CHLORIDE 105 mmol/L (98-107); GLUCOSE 115 mg/dL (75-110); POTASSIUM 3.7 mmol/L (3.6-5.0); SODIUM 138.9 mmol/L (137-145)
[2018-09-03 06:11] LABS: PLATELET COUNT 96 10^3/uL (150-450)
[2018-09-03] MEDS: INSULIN LISPRO 100 UNIT/ML 3 ML VIAL SUBCUT SCH ×4 (07:38→21:39)
--- NOTE | 2018-09-03 08:41 | PDOC PROGRESS REPORT ---
Subjective Progress Note for:: 09/03/18 Subjective:: Patient doing better, breast looks a little bit better. I believe antibiotics are working and patient feels that the case as well. Reason For Visit: RIGHT BREAST CELLULITIS Physical Exam Vital Signs: Temp Pulse Resp BP Pulse Ox 98.4 F 92 17 123/39 L 98 09/03/18 00:21 09/03/18 07:30 09/03/18 00:21 09/03/18 00:21 09/03/18 00:21 Intake & Output 09/02/18 09/03/18 09/04/18 06:59 06:59 06:59 Intake Total 1100 1252 Output Total 325 Balance 1100 927 Weight 73.1 kg 73.2 kg General appearance: PRESENT: no acute distress, well-developed, well-nourished Head exam: PRESENT: atraumatic, normocephalic Eye exam: PRESENT: conjunctiva pink, EOMI, PERRLA. ABSENT: scleral icterus Ear exam: PRESENT: normal external ear exam Mouth exam: PRESENT: moist, tongue midline Neck exam: ABSENT: carotid bruit, JVD, lymphadenopathy, thyromegaly Respiratory exam: PRESENT: clear to auscultation jenny. ABSENT: rales, rhonchi, wheezes Cardiovascular exam: PRESENT: RRR. ABSENT: diastolic murmur, rubs, systolic murmur Pulses: PRESENT: normal dorsalis pedis pul Vascular exam: PRESENT: normal capillary refill GI/Abdominal exam: PRESENT: normal bowel sounds, soft. ABSENT: distended, guarding, mass, organolmegaly, rebound, tenderness Rectal exam: PRESENT: deferred Extremities exam: PRESENT: full ROM. ABSENT: calf tenderness, clubbing, pedal edema Neurological exam: PRESENT: alert, awake, oriented to person, oriented to place, oriented to time, oriented to situation, CN II-XII grossly intact. ABSENT: motor sensory deficit Psychiatric exam: PRESENT: appropriate affect, normal mood. ABSENT: homicidal ideation, suicidal ideation Skin exam: PRESENT: dry, intact, warm. ABSENT: cyanosis, rash Results Laboratory Results: 09/03/18 05:00 09/03/18 05:00 09/03/18 09/03/18 05:00 05:00 WBC 5.7 RBC 3.12 L Hgb 9.5 L Hct 28.1 L MCV 90 MCH 30.4 MCHC 33.8 RDW 18.0 H Plt Count 96 L Sodium 138.9 Potassium 3.7 Chloride 105 Carbon Dioxide 27 Anion Gap 7 BUN 22 H Creatinine 1.36 H Est GFR ( Amer) 46 L Est GFR (Non-Af Amer) 38 L Glucose 115 H Calcium 8.9 Impressions: Chest X-Ray 09/01/18 14:01 IMPRESSION: NO ACUTE RADIOGRAPHIC FINDING IN THE CHEST. Chest Ultrasound 09/01/18 15:07 IMPRESSION: No discrete fluid collection, right breast. Skin thickening with soft tissue edema which can be seen with cellulitis. Recommend diagnostic ultrasound with possible mammogram after the completion of antibiotic treatment to ensure resolution Assessment & Plan - Diagnosis (1) Mastitis in female Is this a current diagnosis for this admission?: Yes Plan: Continue with IV antibiotics x24 more hours. At that point culture should be fully matured and negative. Thereafter I believe patient can be discharged with an oral antibiotic regimen, may be Augmentin for 7-10 more days. (2) Metastatic breast cancer Is this a current diagnosis for this admission?: Yes Plan: Plan for continued therapy as an outpatient, this is her week off chemotherapy so we will probably reinitiate chemotherapy next week.
[2018-09-03] MEDS: ASPIRIN 81 MG TABLET, ENT COATED PO SCH (09:40)
[2018-09-03] MEDS: VANCOMYCIN HCL 750 MG in DEXTROSE 5%-WATER 250 ML IV SCH (09:40)
[2018-09-03] MEDS: LACTULOSE SYRUP 20 GM/30 ML UDCUP PO SCH (09:40)
--- NOTE | 2018-09-03 16:49 | PDOC PROGRESS REPORT ---
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 Physical examination showed her right breast is inflamed and swollen and it has all 4 cardinal signs of inflammation. Patient has been started empirically on meropenem and vancomycin. I stopped the meropenem and continue the vancomycin. Even though patient does not have urinary complaint, her urine culture is positive for MRSA. Reason For Visit: RIGHT BREAST CELLULITIS Physical Exam Vital Signs: Temp Pulse Resp BP Pulse Ox 98.6 F 82 17 105/82 99 09/03/18 12:00 09/03/18 15:55 09/03/18 12:00 09/03/18 12:00 09/03/18 12:00 Intake & Output 09/02/18 09/03/18 09/04/18 06:59 06:59 06:59 Intake Total 1100 1252 840 Output Total 325 Balance 1100 927 840 Weight 73.1 kg 73.2 kg Results Laboratory Results: 09/03/18 05:00 09/03/18 05:00 09/03/18 09/03/18 05:00 05:00 WBC 5.7 RBC 3.12 L Hgb 9.5 L Hct 28.1 L MCV 90 MCH 30.4 MCHC 33.8 RDW 18.0 H Plt Count 96 L Sodium 138.9 Potassium 3.7 Chloride 105 Carbon Dioxide 27 Anion Gap 7 BUN 22 H Creatinine 1.36 H Est GFR ( Amer) 46 L Est GFR (Non-Af Amer) 38 L Glucose 115 H Calcium 8.9 09/01/18 13:55 Clean Catch Midstream Urine Culture - Final Mrsa (Meth Resis Staph Aureus) Lactobacillus (Vaginal Tara) Impressions: Chest X-Ray 09/01/18 14:01 IMPRESSION: NO ACUTE RADIOGRAPHIC FINDING IN THE CHEST. Chest Ultrasound 09/01/18 15:07 IMPRESSION: No discrete fluid collection, right breast. Skin thickening with soft tissue edema which can be seen with cellulitis. Recommend diagnostic ultrasound with possible mammogram after the completion of antibiotic treatment to ensure resolution Assessment and Plan - Diagnosis (1) Mastitis in female Is this a current diagnosis for this admission?: Yes Plan: DC meropenem continue vancomycin. (2) Asymptomatic MRSA bacteriuria Is this a current diagnosis for this admission?: Yes Plan: Continue vancomycin. (3) Type 2 diabetes mellitus Is this a current diagnosis for this admission?: Yes Plan: Continue current regimen. 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 See.
[2018-09-03] MEDS: ATORVASTATIN CALCIUM 40 MG TABLET PO SCH (21:37)
[2018-09-03] MEDS: INSULIN GLARGINE,HUM.REC.ANLOG 1,000 UNIT/10 ML VIAL SUBCUT SCH (21:38)
[2018-09-04] MEDS: HEPARIN SOD (PORCINE) 5,000 UNIT/ML 1 ML SYRINGE SUBCUT SCH ×3 (05:01→21:37)
[2018-09-04 06:51] LABS: HEMATOCRIT 29.1 % (36.0-47.0); HEMOGLOBIN 9.6 g/dL (12.0-15.5); MEAN CORPUSCULAR HEMOGLOBIN 29.8 pg (27.0-33.4); MEAN CORPUSCULAR HGB CONC 33.2 g/dL (32.0-36.0); MEAN CORPUSCULAR VOLUME 90 fl (80-97); RED BLOOD COUNT 3.24 10^6/uL (3.72-5.28); RED CELL DISTRIBUTION WIDTH 17.7 % (11.5-14.0)
[2018-09-04 06:54] LABS: WHITE BLOOD COUNT 2.2 10^3/uL (4.0-10.5)
[2018-09-04 07:05] LABS: ANION GAP 7 (5-19); BLOOD UREA NITROGEN 20 mg/dL (7-20); CALCIUM 9.4 mg/dL (8.4-10.2); CARBON DIOXIDE 29 mmol/L (22-30); CHLORIDE 102 mmol/L (98-107); GLUCOSE 108 mg/dL (75-110); POTASSIUM 3.8 mmol/L (3.6-5.0); SODIUM 138.3 mmol/L (137-145)
[2018-09-04 07:30] LABS: PLATELET COUNT 83 10^3/uL (150-450)
[2018-09-04] MEDS: INSULIN LISPRO 100 UNIT/ML 3 ML VIAL SUBCUT SCH ×4 (08:06→21:44)
--- NOTE | 2018-09-04 08:41 | PDOC PROGRESS REPORT ---
Subjective Progress Note for:: 09/04/18 Subjective:: Breast is doing better, urine culture came back and came back as MRSA, today had a long discussion with what that means and what the next course of action is, discussed that we need IV antibiotics for another day, and then patient could potentially discharge if the breast is improved appropriately with daily vancomycin IV antibiotic. She will need at least a 7 to 10-day course per hospitalist team. Reason For Visit: RIGHT BREAST CELLULITIS Physical Exam Vital Signs: Temp Pulse Resp BP Pulse Ox 99.3 F 78 18 132/58 H 98 09/03/18 23:53 09/04/18 07:00 09/03/18 23:53 09/03/18 23:53 09/03/18 23:53 Intake & Output 09/03/18 09/04/18 09/05/18 06:59 06:59 06:59 Intake Total 1252 3312 Output Total 325 1175 Balance 927 2137 Weight 73.2 kg 74.1 kg General appearance: PRESENT: no acute distress, well-developed, well-nourished Head exam: PRESENT: atraumatic, normocephalic Eye exam: PRESENT: conjunctiva pink, EOMI, PERRLA. ABSENT: scleral icterus Ear exam: PRESENT: normal external ear exam Mouth exam: PRESENT: moist, tongue midline Neck exam: ABSENT: carotid bruit, JVD, lymphadenopathy, thyromegaly Respiratory exam: PRESENT: clear to auscultation jenny. ABSENT: rales, rhonchi, wheezes Cardiovascular exam: PRESENT: RRR. ABSENT: diastolic murmur, rubs, systolic murmur Pulses: PRESENT: normal dorsalis pedis pul Vascular exam: PRESENT: normal capillary refill GI/Abdominal exam: PRESENT: normal bowel sounds, soft. ABSENT: distended, guarding, mass, organolmegaly, rebound, tenderness Rectal exam: PRESENT: deferred Extremities exam: PRESENT: full ROM. ABSENT: calf tenderness, clubbing, pedal edema Neurological exam: PRESENT: alert, awake, oriented to person, oriented to place, oriented to time, oriented to situation, CN II-XII grossly intact. ABSENT: motor sensory deficit Psychiatric exam: PRESENT: appropriate affect, normal mood. ABSENT: homicidal ideation, suicidal ideation Skin exam: PRESENT: dry, intact, warm. ABSENT: cyanosis, rash Results Laboratory Results: 09/04/18 05:45 09/04/18 05:45 09/04/18 09/04/18 05:45 05:45 WBC 2.2 L D RBC 3.24 L Hgb 9.6 L Hct 29.1 L MCV 90 MCH 29.8 MCHC 33.2 RDW 17.7 H Plt Count 83 L Sodium 138.3 Potassium 3.8 Chloride 102 Carbon Dioxide 29 Anion Gap 7 BUN 20 Creatinine 1.29 H Est GFR ( Amer) 49 L Est GFR (Non-Af Amer) 40 L Glucose 108 Calcium 9.4 09/01/18 13:55 Clean Catch Midstream Urine Culture - Final Mrsa (Meth Resis Staph Aureus) Lactobacillus (Vaginal Tara) Impressions: Chest X-Ray 09/01/18 14:01 IMPRESSION: NO ACUTE RADIOGRAPHIC FINDING IN THE CHEST. Chest Ultrasound 09/01/18 15:07 IMPRESSION: No discrete fluid collection, right breast. Skin thickening with soft tissue edema which can be seen with cellulitis. Recommend diagnostic ultrasound with possible mammogram after the completion of antibiotic treatment to ensure resolution Assessment & Plan - Diagnosis (1) Mastitis in female Is this a current diagnosis for this admission?: Yes Plan: MRSA mastitis, continue with IV antibiotic (2) Metastatic breast cancer Is this a current diagnosis for this admission?: Yes Plan: Plan continue treatment as an outpatient but MRSA mastitis has to be fully resolved. We may be delaying chemotherapy next week.
[2018-09-04] MEDS: ASPIRIN 81 MG TABLET, ENT COATED PO SCH (09:58)
[2018-09-04] MEDS: LACTULOSE SYRUP 20 GM/30 ML UDCUP PO SCH (09:58)
[2018-09-04 10:56] LABS: VANCOMYCIN,TROUGH 9.6 ug/mL (5.0-20.0)
[2018-09-04] MEDS: VANCOMYCIN HCL 750 MG in DEXTROSE 5%-WATER 250 ML IV SCH (11:42)
--- NOTE | 2018-09-04 14:13 | PDOC PROGRESS REPORT ---
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 Physical examination showed her right breast is inflamed and swollen and it has all 4 cardinal signs of inflammation. Patient has been started empirically on meropenem and vancomycin. I stopped the meropenem and continue the vancomycin. Even though patient does not have urinary complaint, her urine culture is positive for MRSA. 09/04/2018: Patient seen and examined while she is resting in bed. She is awake alert oriented inflammation of the right breast is slightly decreasing. Patient has been on vancomycin which also treat her a symptomatic MRSA bacteriuria. If patient remained stable and shows improvement potentially she can be discharged today with IV infusion at home. I will put order for PICC line placement. Reason For Visit: RIGHT BREAST CELLULITIS Physical Exam Vital Signs: Temp Pulse Resp BP Pulse Ox 97.9 F 76 18 124/60 100 09/04/18 11:05 09/04/18 11:05 09/04/18 11:05 09/04/18 11:05 09/04/18 11:05 Intake & Output 09/03/18 09/04/18 09/05/18 06:59 06:59 06:59 Intake Total 1252 3312 625 Output Total 325 1175 Balance 927 2137 625 Weight 73.2 kg 74.1 kg General appearance: PRESENT: no acute distress, cooperative, well-developed Neck exam: ABSENT: carotid bruit, JVD, lymphadenopathy, thyromegaly Respiratory exam: PRESENT: clear to auscultation jenny. ABSENT: rales, rhonchi, wheezes Cardiovascular exam: PRESENT: RRR. ABSENT: diastolic murmur, rubs, systolic murmur GI/Abdominal exam: PRESENT: normal bowel sounds, soft. ABSENT: distended, g uarding, mass, organolmegaly, rebound, tenderness Neurological exam: PRESENT: alert, awake, oriented to person, oriented to place, oriented to time Results Laboratory Results: 09/04/18 05:45 09/04/18 05:45 09/04/18 09/04/18 05:45 05:45 WBC 2.2 L D RBC 3.24 L Hgb 9.6 L Hct 29.1 L MCV 90 MCH 29.8 MCHC 33.2 RDW 17.7 H Plt Count 83 L Sodium 138.3 Potassium 3.8 Chloride 102 Carbon Dioxide 29 Anion Gap 7 BUN 20 Creatinine 1.29 H Est GFR ( Amer) 49 L Est GFR (Non-Af Amer) 40 L Glucose 108 Calcium 9.4 09/01/18 13:55 Clean Catch Midstream Urine Culture - Final Mrsa (Meth Resis Staph Aureus) Lactobacillus (Vaginal Tara) Impressions: Chest X-Ray 09/01/18 14:01 IMPRESSION: NO ACUTE RADIOGRAPHIC FINDING IN THE CHEST. Chest Ultrasound 09/01/18 15:07 IMPRESSION: No discrete fluid collection, right breast. Skin thickening with soft tissue edema which can be seen with cellulitis. Recommend diagnostic ultrasound with possible mammogram after the completion of antibiotic treatment to ensure resolution Assessment and Plan - Diagnosis (1) Mastitis in female Is this a current diagnosis for this admission?: Yes Plan: DC meropenem continue vancomycin. (2) Asymptomatic MRSA bacteriuria Is this a current diagnosis for this admission?: Yes Plan: Continue vancomycin. (3) Type 2 diabetes mellitus Is this a current diagnosis for this admission?: Yes Plan: Continue current regimen. 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 See.
[2018-09-04] MEDS ORDERED: MAGNESIUM CITRATE 296 ML BOTTLE PO ONE (14:14)
--- NOTE | 2018-09-04 16:18 | Progress Note ---
Provider Note Provider Note: ID Telephone Consultation Note Asked to review patient's chart by Pharmacy. Pt is not seen or examined. Discussed the case briefly with Dr. Flores, who is the hospitalist caring for the patient. Ms. Wilkerson is a 73 year old woman with stage IV triple negative inflammatory breast cancer who has been receiving chemotherapy with Gemzar. She has a port. She presented to the hospital on 09/01/18 with recent onet of fever at home in association with erythema developing in her right breast. The patient did not report any dysuria or abdominal pain. Her exam did not reveal any fluctuance or drainage, only induration and erythema of the breast. Her blood cultues were drawn and have been negative. When the patient presented she also had a U/A that was sent, which did not show any pyuria. Urine culture grew 20- 30k cfu of MRSA and 50-60k cfu Lactobacillus species. She had an ultrasound that showed no discrete fluid collection in the right breast, only skin thickening and soft tissue edema. She was treated empirically with vancomycin and meropenem, which was appropriately streamlined to vancomycin alone. The inflammation in the right breast has been slightly decreasing. Her last fever was on 09/02. She has not had a fever since then. She has no N&V. She can tolerate PO. Her WBC count is 2.2 today and plt count 83. SCr is 1.3. Impression/Recommendations 1. MRSA in urine culture - MRSA in a urine culture is concerning potentially for MRSA bacteremia that secondarily seeded the urine, but blood cultures have shown no growth and do not substantiate this. - Pt did not have symptoms to suggest a UTI. The absence of pyuria also has a high negative predictive value against UTI being present. - The most likely explanation of the culture result is periurethral colonization and contamination of the specimen. The growth of vaginal osvaldo (Lactobacillus species) along with the MRSA also suggests that this might not be a clean catch specimen. 2. The patient is being treated for R breast mastitis, for which Staphylococcus aureus is most commonly implicated. - No direct cultures are available, as the patient did not have an abscess or drainage. Her urine culture result suggests she might be colonized with MRSA, and it makes sense to take this into account in selecting further antimicrobial therapy. Her isolate is resistant to clindamycin, so this would best be avoided. - If the patient hemodynamically stable, has close follow up, and able to tolerate PO without difficulty, an oral antibiotic could be selected to complete treatment: She has some renal dysfunction, but Bactrim 1 DS BID PO is an option. The myelosuppressive effect of Bactrim is dose-dependent and should not be prohibitive in her situation. Doxycycline also has activity against MRSA, but is not very good against beta hemolytic streptococci, where it would need to be combined with Keflex or amoxicillin, and less common causes of mastitis can include streptococcal species. - IV vancomycin also remains an option. She has a port and does not require line placement. - Duration of therapy is usually in the range of 7-10 days, depending upon clinical response, and could be extended to 14 days if needed. If she has shown an appropriate response by day 7, there would not be a need to continue longer. Tone Ramos MD [facility] Infectious Diseases pager [phone]
[2018-09-04] MEDS: INSULIN GLARGINE,HUM.REC.ANLOG 1,000 UNIT/10 ML VIAL SUBCUT SCH (21:43)
[2018-09-04] MEDS: ATORVASTATIN CALCIUM 40 MG TABLET PO SCH (21:43)
[2018-09-05] MEDS: HEPARIN SOD (PORCINE) 5,000 UNIT/ML 1 ML SYRINGE SUBCUT SCH ×2 (05:02→13:27)
[2018-09-05] MEDS: INSULIN LISPRO 100 UNIT/ML 3 ML VIAL SUBCUT SCH ×2 (07:53→11:43)
--- NOTE | 2018-09-05 08:30 | PDOC PROGRESS REPORT ---
Subjective Progress Note for:: 09/05/18 Subjective:: Breast looks better, reviewed infectious disease notes as well as discussed her case with hospitalist team. Plan for discharge today with IV vancomycin. Had long discussion with patient today, spent about 40 minutes in discussion. Reason For Visit: RIGHT BREAST CELLULITIS Physical Exam Vital Signs: Temp Pulse Resp BP Pulse Ox 98.1 F 75 17 124/60 99 09/04/18 23:41 09/05/18 02:00 09/04/18 23:41 09/04/18 23:41 09/04/18 23:41 Intake & Output 09/04/18 09/05/18 09/06/18 06:59 06:59 06:59 Intake Total 3312 2407 Output Total 1175 Balance 2137 2407 Weight 74.1 kg 74.2 kg General appearance: PRESENT: no acute distress, well-developed, well-nourished Head exam: PRESENT: atraumatic, normocephalic Eye exam: PRESENT: conjunctiva pink, EOMI, PERRLA. ABSENT: scleral icterus Ear exam: PRESENT: normal external ear exam Mouth exam: PRESENT: moist, tongue midline Neck exam: ABSENT: carotid bruit, JVD, lymphadenopathy, thyromegaly Respiratory exam: PRESENT: clear to auscultation jenny. ABSENT: rales, rhonchi, wheezes Cardiovascular exam: PRESENT: RRR. ABSENT: diastolic murmur, rubs, systolic murmur Pulses: PRESENT: normal dorsalis pedis pul Vascular exam: PRESENT: normal capillary refill GI/Abdominal exam: PRESENT: normal bowel sounds, soft. ABSENT: distended, guarding, mass, organolmegaly, rebound, tenderness Rectal exam: PRESENT: deferred Extremities exam: PRESENT: full ROM. ABSENT: calf tenderness, clubbing, pedal edema Neurological exam: PRESENT: alert, awake, oriented to person, oriented to place, oriented to time, oriented to situation, CN II-XII grossly intact. ABSENT: motor sensory deficit Psychiatric exam: PRESENT: appropriate affect, normal mood. ABSENT: homicidal ideation, suicidal ideation Skin exam: PRESENT: dry, intact, warm. ABSENT: cyanosis, rash Results Laboratory Results: 09/04/18 05:45 09/04/18 05:45 Impressions: Chest X-Ray 09/01/18 14:01 IMPRESSION: NO ACUTE RADIOGRAPHIC FINDING IN THE CHEST. Chest Ultrasound 09/01/18 15:07 IMPRESSION: No discrete fluid collection, right breast. Skin thickening with soft tissue edema which can be seen with cellulitis. Recommend diagnostic ultrasound with possible mammogram after the completion of antibiotic treatment to ensure resolution Assessment & Plan - Diagnosis (1) Mastitis in female Is this a current diagnosis for this admission?: Yes Plan: Continue with IV vancomycin today and discharge home hopefully today with daily IV vancomycin for the next 7 days. (2) Metastatic breast cancer Is this a current diagnosis for this admission?: Yes Plan: Chemotherapy on hold until infection fully heals. Patient has appointment to see me next week. (3) Pancytopenia Is this a current diagnosis for this admission?: Yes Plan: Anemia, leukopenia and thrombocytopenia all related to chemotherapy effect. Currently no need for transfusion. Will follow. - Time Time Spent with patient: 35 or more minutes
--- NOTE | 2018-09-05 08:36 | PDOC DISCHARGE SUMMARY ---
General - Admit/Disc Date/PCP Admission Date/Primary Care Provider: 09/01/18 16:44 ROCHELLE HUTSON MD Discharge Date: 09/05/18 - Discharge Diagnosis (1) Mastitis in female Is this a current diagnosis for this admission?: Yes (2) Asymptomatic MRSA bacteriuria Is this a current diagnosis for this admission?: Yes (3) Type 2 diabetes mellitus Is this a current diagnosis for this admission?: Yes (4) Hypertension Is this a current diagnosis for this admission?: Yes (5) Stage IV inflammatory carcinoma of breast Is this a current diagnosis for this admission?: Yes - Additional Information Resuscitation Status: Full Code Home Medications: Carboxymethylcellulose Sodium [Lubricant Eye Drops] 1 drop OU DAILYP PRN 09/02/18 Cholecalciferol (Vitamin D3) [Vitamin D3 1000 Unit Tablet] 1,000 unit PO DAILY 09/02/18 Insulin Glargine,Hum.rec.anlog [Lantus Insulin 100 Unit/1 ml 10 ml] 42 units SQ QHS 09/02/18 Insulin Lispro [Humalog Insulin (Lispro) 100 unit/mL] 0 units SQ .PE RSLIDINGSCALE 09/02/18 Insulin Lispro [Humalog Insulin (Lispro) 100 unit/mL] 2 units SQ [id number] Insulin Lispro [Humalog Insulin (Lispro) 100 unit/mL] 4 units SQ WLUNCH 09/02/18 Insulin Lispro [Humalog Insulin (Lispro) 100 unit/mL] 4 units SQ WSUPPER 09/02/18 Rosuvastatin Calcium [Crestor 20 mg Tablet] 20 mg PO QHS 09/02/18 History of Present Illness History of Present Illness: KENNEY FARLEY is a 73 year old female with a history of bilateral breast cancer that recently returned after several years and who is currently on chemotherapy presents with fever at home of 102 F and right breast erythema and swelling. She said it started 3 days ago. The swelling was very subtle as was the erythema. Gradually progressed since then. She now has a large, red, swollen, and tender right breast. There is been no exudate. She has not had any recent procedures on the breast, with her biopsy coming sometime last year. There is no evidence of any recent wound. She has not taken any antibiotics for this since it started. She is being admitted for IV antibiotics. Hospital Course Hospital Course: This is 73 years old female patient with past medical history of hypertension, diabetes mellitus and history of stage IV triple negative breast cancer presented with chief complaint of fever of 102 at home and 101 at ER. Physical examination showed her right breast is inflamed and swollen and it has all 4 cardinal signs of inflammation. Patient has been started empirically on meropenem and vancomycin. I stopped the meropenem and continue the vancomycin. Even though patient does not have urinary complaint, her urine culture is positive for MRSA. 09/04/2018: Patient seen and examined while she is resting in bed. She is awake alert oriented inflammation of the right breast is slightly decreasing. Patient has been on vancomycin which also treat her a symptomatic MRSA bacteriuria. If patient remained stable and shows improvement potentially she can be discharged today with IV infusion at home. I will put order for PICC line placement. 09/05/2018: This morning patient seen sitting on recliner. She is awake alert oriented she is not in pain or distress. His vital signs and blood works are unremarkable. Her mastitis has been improving. Since patient already has a port, there is no need for PICC line placement. I have discussed the case with Dr. Tone Ramos, ID who recommend 10 to 14 days of IV vancomycin. Patient is going to be discharged in stable condition and will set up IV infusion at home. Physical Exam Vital Signs: Temp Pulse Resp BP Pulse Ox 98.1 F 75 17 124/60 99 09/04/18 23:41 09/05/18 02:00 09/04/18 23:41 09/04/18 23:41 09/04/18 23:41 Intake & Output 09/04/18 09/05/18 09/06/18 06:59 06:59 06:59 Intake Total 3312 2407 Output Total 1175 Balance 2137 2407 Weight 74.1 kg 74.2 kg General appearance: PRESENT: no acute distress Head exam: PRESENT: atraumatic Eye exam: PRESENT: conjunctiva pink Mouth exam: PRESENT: moist Neck exam: ABSENT: carotid bruit, JVD, lymphadenopathy, thyromegaly Respiratory exam: PRESENT: clear to auscultation jenny, other - Right breast inflammation has been decreasing.. ABSENT: rales, rhonchi, wheezes GI/Abdominal exam: PRESENT: normal bowel sounds, soft. ABSENT: distended, guarding, mass, organolmegaly, rebound, tenderness Neurological exam: PRESENT: awake, oriented to person, oriented to place, oriented to time, oriented to situation Results Laboratory Results: 09/04/18 05:45 09/04/18 05:45 Impressions: Chest X-Ray 09/01/18 14:01 IMPRESSION: NO ACUTE RADIOGRAPHIC FINDING IN THE CHEST. Chest Ultrasound 09/01/18 15:07 IMPRESSION: No discrete fluid collection, right breast. Skin thickening with soft tissue edema which can be seen with cellulitis. Recommend diagnostic ultrasound with possible mammogram after the completion of antibiotic treatment to ensure resolution Qualifiers - * PATIENT BEING DISCHARGED WITH ANY OF THE FOLLOWING DIAGNOSIS: No Acute Heart Failure - Is this a Heart Failure Patient?: No LVEF < 40%?: No- if no continue to question #3 3. Anticoagulant therapy for permanect/persistent/paraoxysmal Afib or Aflutter: N/A Follow-up Appointment scheduled within 7 days?: Yes
[2018-09-05] MEDS: VANCOMYCIN HCL 750 MG in DEXTROSE 5%-WATER 250 ML IV SCH (09:37)
[2018-09-05] MEDS: LACTULOSE SYRUP 20 GM/30 ML UDCUP PO SCH (09:37)
[2018-09-05] MEDS: ASPIRIN 81 MG TABLET, ENT COATED PO SCH (09:38)
[2018-09-05 14:44] VITALS: BP 108/56
== END 2018-09-05 14:54 | disposition home health service (06) | DRG 600 ==
LOC: ER 13:03 → EH 16:44 → 4S 18:48 → 4N 09-03 13:36
PROVIDERS: ADMIT Family Medicine; ATTEND Family Medicine
DX: N61.0 Mastitis without abscess (principal); C79.2 Secondary malignant neoplasm of skin; D61.818 Other pancytopenia; E11.9 Type 2 diabetes mellitus without complications; I10 Essential (primary) hypertension; C50.912 Malignant neoplasm of unspecified site of left female breast; C50.911 Malignant neoplasm of unspecified site of right female breast; R82.71 Bacteriuria; B95.62 Methicillin resistant Staphylococcus aureus infection as the cause of diseases classified elsewhere; Z79.899 Other long term (current) drug therapy; Z87.891 Personal history of nicotine dependence; Z88.6 Allergy status to analgesic agent; Z83.3 Family history of diabetes mellitus; Z82.49 Family history of ischemic heart disease and other diseases of the circulatory system; Z79.82 Long term (current) use of aspirin; Z79.4 Long term (current) use of insulin; Z92.21 Personal history of antineoplastic chemotherapy
CPT/HCPCS: 36415; 36591; 71045; 76604; 80048; 80053; 80202; 81001; 82962; 83605; 85025; 85027; 87040; 87086; 87088; 87186; 96361; 96374; 99285; J1815; J2185; J2543; J3370; J3490; J7030; J7060

== ENCOUNTER 2018-09-29 20:40 | Inpatient (IN) | payer MEDICARE ==
[2018-09-29] MEDS ORDERED: ACETAMINOPHEN 325 MG TABLET PO ONE (21:42)
[2018-09-29 22:25] LABS: VENOUS BLOOD BASE EXCESS 0.5 mmol/L; VENOUS BLOOD PH 7.41 (7.30-7.42)
[2018-09-29 22:36] LABS: ABSOLUTE EOSINOPHILS # (AUTO) 0.1 10^3/uL (0.0-0.6); ABSOLUTE LYMPHOCYTES (AUTO) 0.6 10^3/uL (0.5-4.7); ABSOLUTE MONOCYTES (AUTO) 0.1 10^3/uL (0.1-1.4); ABSOLUTE NEUT (AUTO) 6.3 10^3/uL (1.7-8.2); BASOPHILS % (AUTO) 0.1 % (0-2); EOSINOPHILS % (AUTO) 0.8 % (0-6); HEMATOCRIT 24.6 % (36.0-47.0); HEMOGLOBIN 8.4 g/dL (12.0-15.5); LYMPHOCYTES % (AUTO) 8.5 % (13-45); MEAN CORPUSCULAR HEMOGLOBIN 30.3 pg (27.0-33.4); MEAN CORPUSCULAR HGB CONC 33.9 g/dL (32.0-36.0); MEAN CORPUSCULAR VOLUME 89 fl (80-97); PLATELET COUNT 126 10^3/uL (150-450); RED BLOOD COUNT 2.76 10^6/uL (3.72-5.28); RED CELL DISTRIBUTION WIDTH 19.1 % (11.5-14.0); SEGMENTED NEUTROPHILS % (AUTO) 88.6 % (42-78); TOTAL CELLS COUNTED % (AUTO) 100 %; WHITE BLOOD COUNT 7.1 10^3/uL (4.0-10.5)
[2018-09-29 22:43] LABS: ALANINE AMINOTRANSFERASE 30 U/L (9-52); ALBUMIN 3.8 g/dL (3.5-5.0); ALKALINE PHOSPHATASE 50 U/L (38-126); ANION GAP 9 (5-19); ASPARTATE AMINO TRANSFERASE 24 U/L (14-36); BILIRUBIN,DIRECT 0.3 mg/dL (0.0-0.4); BILIRUBIN,TOTAL 0.6 mg/dL (0.2-1.3); BLOOD UREA NITROGEN 39 mg/dL (7-20); CALCIUM 9.3 mg/dL (8.4-10.2); CARBON DIOXIDE 24 mmol/L (22-30); CHLORIDE 102 mmol/L (98-107); GLUCOSE 192 mg/dL (75-110); TOTAL PROTEIN 7.1 g/dL (6.3-8.2)
--- NOTE | 2018-09-29 23:01 | RADIOLOGY REPORT (SQ) ---
EXAM DESCRIPTION: XR CHEST 1 VIEW COMPLETED DATE/TME: 09/29/2018 21:43 CLINICAL HISTORY: 73 years, Female, chest pain COMPARISON: 09/01/2018 chest NUMBER OF VIEWS: 1 TECHNIQUE: Portable chest LIMITATIONS: None. FINDINGS: The heart size is normal. Osteopenia. [id number] catheter in place. Lungs are clear. No pneumothorax IMPRESSION: No acute cardiopulmonary process copyright 2010 [employer]- All Rights Reserved
[2018-09-29 23:03] LABS: APPEARANCE,URINE CLOUDY; BILIRUBIN,URINE NEGATIVE (NEGATIVE); COLOR,URINE YELLOW; GLUCOSE, URINE >=500 mg/dL (NEGATIVE); KETONES,URINE NEGATIVE (NEGATIVE); LEUKOCYTE ESTERASE,URINE NEGATIVE (NEGATIVE); NITRITE,URINE NEGATIVE (NEGATIVE); PROTEIN,URINE 30 mg/dL (NEGATIVE); URINE SPECIFIC GRAVITY 1.013; UROBILINOGEN,URINE NEGATIVE mg/dL (<2.0)
[2018-09-29 23:05] LABS: INTERNATIONAL RATION (INR) 1.05; PROTHROMBIN TIME 13.7 SEC (11.4-15.4)
[2018-09-29] MEDS ORDERED: PIPERACILLIN/TAZOBACTAM 3.375 GM VIAL IV ONE (23:26)
[2018-09-29] MEDS ORDERED: VANCOMYCIN HCL INJ 1000 MG VIAL IV ONE (23:26)
[2018-09-29] MEDS ORDERED: ERTAPENEM SODIUM INJ 1 GM VIAL IV ONE (23:26)
--- NOTE | 2018-09-29 23:26 | ER Document Report ---
ED General - General Chief Complaint: Fever Stated Complaint: FEVER, CHILLS, METASTATIC BREAST CANCER Time Seen by Provider: 09/29/18 21:24 Mode of Arrival: Ambulatory Information source: Patient, Relative Notes: Patient is a 73-year-old female presented to the emergency department with chief complaint of fever and chills as well as redness and pain to right breast. She reports that she has metastatic breast cancer and is currently undergoing chemotherapy. Her last dose of chemo was on Sunday. Patient reports she was admitted on 09/01/2018 for MRSA of the breast. She reports that after that discharge she was on home vancomycin. She reports this pain and redness started over the last 2 days. She reports fever up to 1002.4 at home today. Patient denies any nausea, vomiting, diarrhea. She does report mild shortness of breath and had chest pain earlier. She reports similar chest pain last time she had MRSA of the breast. TRAVEL OUTSIDE OF THE [place] IN LAST 30 DAYS: No - Related Data Allergies/Adverse Reactions: codeine Allergy (Intermediate, Verified 09/01/18 13:04) increased blood sugar Past Medical History - General Information source: Patient - Social History Smoking Status: Never Smoker Frequency of alcohol use: None Drug Abuse: None Family History: Reviewed & Not Pertinent Patient has suicidal ideation: No Patient has homicidal ideation: No - Past Medical History Cardiac Medical History: Reports: Hx Hypercholesterolemia, Hx Hypertension Denies: Hx Heart Attack Pulmonary Medical History: Denies: Hx Asthma Neurological Medical History: Denies: Hx Cerebrovascular Accident, Hx Seizures Endocrine Medical History: Reports: Hx Diabetes Mellitus Type 1 Renal/ Medical History: Denies: Hx Peritoneal Dialysis Malignancy Medical History: Reports: Hx Breast Cancer - 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 Denies: Hx Mastectomy, Hx Open Heart Surgery, Hx Pacemaker Review of Systems - Review of Systems Constitutional: Fever EENT: No symptoms reported Cardiovascular: Chest pain Respiratory: Short of breath Gastrointestinal: No symptoms reported Genitourinary: No symptoms reported Female Genitourinary: No symptoms reported Musculoskeletal: No symptoms reported Skin: See HPI Hematologic/Lymphatic: No symptoms reported Neurological/Psychological: No symptoms reported Physical Exam - Vital signs Vitals: Temp Pulse Resp BP Pulse Ox 101.1 F H 108 H 18 124/78 95 09/29/18 20:54 09/29/18 20:54 09/29/18 20:54 09/29/18 20:54 09/29/18 20:54 - Notes Notes: PHYSICAL EXAMINATION: GENERAL: Well-appearing, well-nourished and in no acute distress. HEAD: Atraumatic, normocephalic. EYES: Pupils equal round and reactive to light, extraocular movements intact, conjunctiva are normal. ENT: Nares patent, oropharynx clear without exudates. Moist mucous membranes. NECK: Normal range of motion, supple without lymphadenopathy LUNGS: Breath sounds clear to auscultation bilaterally and equal. No wheezes rales or rhonchi. HEART: Regular rate and rhythm without murmurs ABDOMEN: Soft, nontender, nondistended abdomen. No guarding, no rebound. No masses appreciated. Female : deferred Musculoskeletal: Normal range of motion, no pitting or edema. No cyanosis. NEUROLOGICAL: Cranial nerves grossly intact. Normal speech. Normal sensory, motor exams PSYCH: Normal mood, normal affect. SKIN: Erythema and induration noted to entire right breast. No fluctuance noted. Course - Re-evaluation Re-evalutation: Labs as recorded. Patient has significant cellulitis to right breast. She has already been on outpatient Augmentin for the last 3 days. I spoke with patient's oncologist, Dr. Rogers and discussed all test results. She will consult with the patient in the morning. Patient is accepted for admission by hospitalist, Dr. De Paz she will be admitted to a medical floor. - Vital Signs Vital signs: Temp Pulse Resp BP Pulse Ox 100 F 108 H 21 H 114/60 92 09/29/18 23:16 09/29/18 20:54 09/29/18 23:01 09/29/18 23:00 09/29/18 23:01 - Laboratory Result Diagrams: 09/29/18 22:13 09/29/18 22:13 Laboratory results interpreted by me: 09/29/18 09/29/18 09/29/18 21:59 22:13 22:13 RBC 2.76 L Hgb 8.4 L Hct 24.6 L RDW 19.1 H Plt Count 126 L Seg Neutrophils % 88.6 H Lymphocytes % 8.5 L Monocytes % 2.0 L Sodium 135.0 L BUN 39 H Creatinine 1.50 H Est GFR ( Amer) 41 L Est GFR (Non-Af Amer) 34 L Glucose 192 H Urine Protein 30 H Urine Glucose (UA) >=500 H Urine Blood SMALL H Discharge - Discharge Clinical Impression: Cellulitis of breast Condition: Stable Disposition: ADMITTED OBSERVATION Admitting Provider: Zandra (Hospitalist) Unit Admitted: Medical Floor
[2018-09-29] MEDS ORDERED: INSULIN GLARGINE,HUM.REC.ANLOG 1,000 UNIT/10 ML VIAL SUBCUT ONE (23:38)
[2018-09-29] MEDS ORDERED: TEMAZEPAM 15 MG CAPSULE PO PRN (23:50)
[2018-09-29] MEDS ORDERED: MAG HYDROX/AL HYDROX/SIMETH SUSP 30 ML UDCUP PO PRN (23:50)
[2018-09-29] MEDS ORDERED: MAGNESIUM HYDROXIDE SUSP 30 ML UDCUP PO PRN (23:50)
[2018-09-29] MEDS ORDERED: ONDANSETRON HCL INJ/PF 4 MG/2 ML SDV IV PRN (23:50)
[2018-09-29] MEDS ORDERED: LEVALBUTEROL HCL NEB 0.63 MG/3 ML AMPUL NEB PRN (23:54)
[2018-09-29] MEDS ORDERED: MORPHINE SULFATE 10 MG/ML INJ IV PRN (23:54)
[2018-09-29] MEDS ORDERED: ACETAMINOPHEN 325 MG TABLET PO PRN (23:54)
[2018-09-30] MEDS ORDERED: MORPHINE SULFATE 10 MG/ML INJ IV PRN ×3 (00:13)
[2018-09-30] MEDS ORDERED: VANCOMYCIN HCL INJ 1000 MG VIAL IV PRN (00:28)
[2018-09-30] MEDS ORDERED: VANCOMYCIN HCL INJ 1000 MG VIAL IV ONE ×2 (00:30→01:00)
[2018-09-30] MEDS ORDERED: INSULIN REG, HUMAN 100 UNIT/ML 3 ML VIAL (PYX) SUBCUT ONE (00:30)
[2018-09-30] MEDS ORDERED: VANCOMYCIN HCL 1,500 MG in DEXTROSE 5%-WATER 250 ML IV ONE (01:00)
--- NOTE | 2018-09-30 01:41 | PDOC H&P ---
History of Present Illness Admission Date/PCP: 09/29/2018 23:19 ROCHELLE HUTSON MD Patient complains of: Painful swelling of the right breast History of Present Illness: KENNEY FARLEY is a 73 year old female who presented to the emergency room with a 5-day history of swelling and pain of the right breast. Patient admits that her right breast developed mild erythema and tenderness 5 days ago that has gradually increased in size to involve her entire right upper chest from her axilla to her breastbone and her collarbone to her mid breast. The erythema and tenderness have been accompanied by an increasing hardness and swelling of the entire right anterior chest and breast. The pain is now moderate and the swelling is severe. She also developed a fever of 102.4 F at home earlier today and thus decided to present to the emergency room for treatment. She admits a prior similar episode approximately 1 month ago after receiving a new chemotherapy drug for treatment of her metastatic breast cancer. She notes that she developed the same symptoms the day after receiving the same drug this month. She denies other accompanying or associated signs or symptoms. She is not identified any other aggravating or ameliorating factors for her right breast pain and swelling. In the emergency room she was found to have an elevated temperature, but her CBC was normal as was her serum lactic acid. Examination in the ER showed no evidence of fluctuance or abscess formation in the area. Antibiotic therapy was initiated and [facility] therapy, as she has no desire to stay in the hospital if she can possibly be at home. Past Medical History Cardiac Medical History: Reports: Hyperlipidema, Hypertension Denies: Atrial Fibrillation, Coronary Artery Disease, DVT, Myocardial Infarction, Pulmonary Embolism Pulmonary Medical History: Denies: Asthma, Chronic Obstructive Pulmonary Disease (COPD), Respiratory Failure EENT Medical History: Denies: Cataracts, Ears - Very Neurological Medical History: Denies: Hemorrhagic CVA, Ischemic CVA, Multiple Sclerosis, Seizures Endocrine Medical History: Reports: Diabetes Mellitus Type 2 Denies: Diabetes Mellitus Type 1, Hyperthyroidism, Hypothyroidism, Obesity Renal/ Medical History: Reports: Chronic Kidney Disease Denies: Nephrolithiasis Malignancy Medical History: Reports: Breast Cancer - 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 GI Medical History: Denies: Cirrhosis, Crohn's Disease, Hepatitis, Hiatal Hernia, Ulcerative Colitis Musculoskeltal Medical History: Denies: Arthritis, Fibromyalgia Skin Medical History: Denies: Eczema, Psoriasis Psychiatric Medical History: Denies: Alcohol Dependency, Depression, Substance Abuse, Tobacco Dependency Traumatic Medical History: Reports: None Hematology: Reports: Anemia Denies: Bleeding Tendencies Infectious Medical History: Reports: None Past Surgical History Past Surgical History: Reports: Cardiac Catheterization, Coronary Stent, Vascular Surgery - Port-A-Cath placement left chest, Other - Breast/Skin biopsy Social History Information Source: Patient Lives with: Spouse/Significant other Smoking Status: Never Smoker Frequency of Alcohol Use: None Hx Recreational Drug Use: No Drugs: None Hx Prescription Drug Abuse: No - Advance Directive Resuscitation Status: Full Code Surrogate healthcare decision maker:: Sebastian Farley her Family History Family History: DM, Hypertension Parental Family History Reviewed: Yes Children Family History Reviewed: No Sibling(s) Family History Reviewed.: Yes Medication/Allergy Home Medications: Carboxymethylcellulose Sodium [Lubricant Eye Drops] 1 drop OU DAILYP PRN 09/02/18 Cholecalciferol (Vitamin D3) [Vitamin D3 1000 Unit Tablet] 1,000 unit PO DAILY 09/02/18 Insulin Glargine,Hum.rec.anlog [Lantus Insulin 100 Unit/1 ml 10 ml] 42 units SQ QHS 09/02/18 Insulin Lispro [Humalog Insulin (Lispro) 100 unit/mL] 0 units SQ .PERSLIDINGSCALE 09/02/18 Insulin Lispro [Humalog Insulin (Lispro) 100 unit/mL] 4 units SQ WSUPPER 09/02/18 Rosuvastatin Calcium [Crestor 20 mg Tablet] 20 mg PO QHS 09/02/18 Lactulose 1 cap PO PRN PRN 09/29/18 Allergies/Adverse Reactions: codeine Allergy (Intermediate, Verified 09/01/18 13:04) increased blood sugar Review of Systems Constitutional: PRESENT: as per HPI, fever(s). ABSENT: chills Eyes: ABSENT: visual disturbances, other - She is more fluid first before because of pain she is not really hypovolemic her more fluid continue fluids she is obviously a small fluid bolus and see if she is here 5 over an hour and see how she does worse that she is volume Lasix ocular pain Ears: ABSENT: hearing changes, other - Ear pain Nose, Mouth, and Throat: ABSENT: mouth pain, sore throat Cardiovascular: ABSENT: chest pain, palpitations Respiratory: ABSENT: cough, dyspnea Gastrointestinal: ABSENT: abdominal pain, constipation, diarrhea, nausea, vomiting Genitourinary: ABSENT: dysuria, hematuria Integumentary: PRESENT: as per HPI, erythema - Erythema and edema with increased warmth and tenderness of the right breast.. ABSENT: pruritus, rash Neurological: ABSENT: confusion, convulsions, focal weakness, memory loss, syncope Psychiatric: ABSENT: anxiety, depression Endocrine: ABSENT: cold intolerance, heat intolerance Hematologic/Lymphatic: ABSENT: easy bleeding, easy bruising Physical Exam Vital Signs: Temp Pulse Resp BP Pulse Ox 100 F 108 H 21 H 114/60 92 09/29/18 23:16 09/29/18 20:54 09/29/18 23:01 09/29/18 23:00 09/29/18 23:01 Intake & Output 09/27/18 09/28/18 09/29/18 23:59 23:59 23:59 Weight 69.4 kg General appearance: PRESENT: no acute distress, cooperative Head exam: PRESENT: atraumatic, normocephalic Eye exam: PRESENT: conjunctiva pink. ABSENT: conjunctival injection, scleral icterus Ear exam: PRESENT: normal external ear exam. ABSENT: bleeding, drainage Mouth exam: PRESENT: dry mucosa, neck supple Neck exam: ABSENT: JVD, thyromegaly, tracheal deviation Respiratory exam: PRESENT: clear to auscultation jenny, symmetrical, unlabored Cardiovascular exam: PRESENT: RRR. ABSENT: clicks, gallop, rubs Pulses: PRESENT: normal radial pulses, normal dorsalis pedis pul Vascular exam: PRESENT: normal capillary refill. ABSENT: pallor GI/Abdominal exam: PRESENT: normal bowel sounds, soft Rectal exam: PRESENT: deferred Extremities exam: ABSENT: joint swelling, pedal edema Musculoskeletal exam: PRESENT: full ROM, normal inspection. ABSENT: tenderness Neurological exam: PRESENT: alert, oriented to person, oriented to place, oriented to time, oriented to situation, CN II-XII grossly intact. ABSENT: motor sensory deficit Psychiatric exam: PRESENT: appropriate affect, normal mood Skin exam: PRESENT: dry, erythema - Erythema, edema, induration, tenderness to palpation right anterior chest involving the upper aspect of the right breast to the subclavicular area bounded by the sternum on the medial aspect and the anterior axillary line on the lateral aspect. No fluctuance is noted., intact, warm. ABSENT: jaundice, rash, urticaria Results Laboratory Results: 09/29/18 22:13 09/29/18 22:13 09/29/18 09/29/18 09/29/18 21:59 22:13 22:13 WBC 7.1 RBC 2.76 L Hgb 8.4 L Hct 24.6 L MCV 89 MCH 30.3 MCHC 33.9 RDW 19.1 H Plt Count 126 L Seg Neutrophils % 88.6 H Lymphocytes % 8.5 L Monocytes % 2.0 L Eosinophils % 0.8 Basophils % 0.1 Absolute Neutrophils 6.3 Absolute Lymphocytes 0.6 Absolute Monocytes 0.1 Absolute Eosinophils 0.1 Absolute Basophils 0.0 VBG pH VBG pCO2 VBG HCO3 VBG Base Excess Sodium 135.0 L Potassium 4.0 Chloride 102 Carbon Dioxide 24 Anion Gap 9 BUN 39 H Creatinine 1.50 H Est GFR ( Amer) 41 L Est GFR (Non-Af Amer) 34 L Glucose 192 H Lactic Acid Calcium 9.3 Total Bilirubin 0.6 AST 24 ALT 30 Alkaline Phosphatase 50 Total Protein 7.1 Albumin 3.8 Urine Color YELLOW Urine Appearance CLOUDY Urine pH 5.0 Ur Specific Thornton 1.013 Urine Protein 30 H Urine Glucose (UA) >=500 H Urine Ketones NEGATIVE Urine Blood SMALL H Urine Nitrite NEGATIVE Ur Leukocyte Esterase NEGATIVE Urine WBC (Auto) 5 09/29/18 09/29/18 22:13 22:13 WBC RBC Hgb Hct MCV MCH MCHC RDW Plt Count Seg Neutrophils % Lymphocytes % Monocytes % Eosinophils % Basophils % Absolute Neutrophils Absolute Lymphocytes Absolute Monocytes Absolute Eosinophils Absolute Basophils VBG pH 7.41 VBG pCO2 40.0 VBG HCO3 25.0 VBG Base Excess 0.5 Sodium Potassium Chloride Carbon Dioxide Anion Gap BUN Creatinine Est GFR ( Amer) Est GFR (Non-Af Amer) Glucose Lactic Acid 0.7 Calcium Total Bilirubin AST ALT Alkaline Phosphatase Total Protein Albumin Urine Color Urine Appearance Urine pH Ur Specific Thornton Urine Protein Urine Glucose (UA) Urine Ketones Urine Blood Urine Nitrite Ur Leukocyte Esterase Urine WBC (Auto) 09/29/18 22:13 Troponin I < 0.012 Impressions: Chest X-Ray 09/29/18 21:43 IMPRESSION: No acute cardiopulmonary process copyright 2011 [facility]- All Rights Reserved Assessment and Plan - Diagnosis (1) Cellulitis of right breast Is this a current diagnosis for this admission?: Yes Plan: Patient be treated with IV antibiotics utilizing vancomycin and ertapenem in hopes of establishing a regiment that can be administered to her at home as she does not wish to be hospitalized if possible. Blood cultures are pending at the present time. A CBC and metabolic profile will be obtained as part of her evaluation in the morning. (2) Fever Qualifiers: Fever type: unspecified Qualified Code(s): R50.9 - Fever, unspecified Is this a current diagnosis for this admission?: Yes Plan: Patient's fever be treated with Tylenol and or ibuprofen as required for adequate temperature reduction. (3) Stage IV inflammatory carcinoma of breast Qualifiers: Laterality: right Qualified Code(s): C50.911 - Malignant neoplasm of unspecified site of right female breast Is this a current diagnosis for this admission?: Yes Plan: Patient is currently undergoing chemotherapy for her breast carcinoma with metastases. She seems to develop cellulitis in her right breast after administration of one particular drug. Further evaluation of the therapeutic program should be made by her oncologist Dr. Hutson. (4) Metastatic breast cancer Is this a current diagnosis for this admission?: Yes Plan: Dr. Hutson will provide any input needed for treatment of the patient's metastatic breast cancer. This would require consultation which has not yet been done as it is hoped that the patient can be treated as an outpatient and follow up with Dr. Hutson at his office. (5) Hypertension Qualifiers: Hypertension type: essential hypertension Qualified Code(s): I10 - Essential (primary) hypertension Is this a current diagnosis for this admission?: Yes Plan: Patient be continued on her usual antihypertensive regiment once her med list has been reconciled. Her blood pressure will be closely observed during her hospital course. (6) Diabetes mellitus type 2 in nonobese Is this a current diagnosis for this admission?: Yes Plan: Patient be continued on her usual diabetic medication once her medication list has been reconciled. She will be continued on a diabetic diet and before meals and at bedtime Accu-Cheks will be performed with sliding scale insulin coverage for hyperglycemia. Hypoglycemic regiment will be in place if needed. Hemoglobin A1c will be obtained in the morning. - Time Time Spent with patient: 35 or more minutes Medications reviewed and adjusted accordingly: Yes Anticipated discharge: Home - Inpatient Certification Based on my medical assessment, after consideration of the patient's comorbidities, presenting symptoms, or acuity I expect that the services needed warrant INPATIENT care.: No I certify that my determination is in accordance with my understanding of Medicare's requirements for reasonable and necessary INPATIENT services [42 CFR 412.3e].: No Medical Necessity: Need for IV Antibiotics
--- NOTE | 2018-09-30 01:45 | ADVANCED CARE ---
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 Resuscitation Status: Full Code Discussion: After discussion with family the patient has decided that she wishes to remain a full code resuscitation status patient for cardiac or respiratory arrest that may occur during this hospital stay. Additionally she has named her Sebastian Wilkerson as her designated surrogate medical decision-maker. Care Planning Goals: 1. Patient will be full CODE STATUS for this hospitalization. 2. Sebastian Wilkerson is her designated surrogate medical decision-maker. Document(s) Completed: The following entries will be made into the patient's permanent medical record, current medical record and current orders via EMR entry: 1. Patient will be full CODE STATUS for this hospitalization. 2. Sebastian Wilkerson is her designated surrogate medical decision-maker. Time Spent: 15 minutes
[2018-09-30] MEDS ORDERED: VANCOMYCIN HCL INJ 1000 MG VIAL ONE (02:06)
[2018-09-30] MEDS ORDERED: VANCOMYCIN HCL INJ 500 MG VIAL ONE (02:06)
[2018-09-30] MEDS: HEPARIN SOD (PORCINE) 5,000 UNIT/ML 1 ML SYRINGE SUBCUT SCH ×3 (05:16→22:21)
[2018-09-30 05:47] LABS: MEAN CORPUSCULAR HEMOGLOBIN 29.8 pg (27.0-33.4); MEAN CORPUSCULAR HGB CONC 33.2 g/dL (32.0-36.0); MEAN CORPUSCULAR VOLUME 90 fl (80-97); PLATELET COUNT 113 10^3/uL (150-450); RED BLOOD COUNT 2.57 10^6/uL (3.72-5.28); RED CELL DISTRIBUTION WIDTH 18.9 % (11.5-14.0); WHITE BLOOD COUNT 5.6 10^3/uL (4.0-10.5)
[2018-09-30 05:49] LABS: HEMOGLOBIN 7.6 g/dL (12.0-15.5)
[2018-09-30 06:15] LABS: ALANINE AMINOTRANSFERASE 31 U/L (9-52); ALBUMIN 3.3 g/dL (3.5-5.0); ALKALINE PHOSPHATASE 41 U/L (38-126); ANION GAP 7 (5-19); ASPARTATE AMINO TRANSFERASE 20 U/L (14-36); BILIRUBIN,DIRECT 0.2 mg/dL (0.0-0.4); BILIRUBIN,TOTAL 0.5 mg/dL (0.2-1.3); BLOOD UREA NITROGEN 36 mg/dL (7-20); CALCIUM 9.1 mg/dL (8.4-10.2); CARBON DIOXIDE 26 mmol/L (22-30); CHLORIDE 105 mmol/L (98-107); CHOLESTEROL 141.82 mg/dL (0-200); GLUCOSE 196 mg/dL (75-110); POTASSIUM 3.6 mmol/L (3.6-5.0); SODIUM 138.2 mmol/L (137-145); TOTAL PROTEIN 6.2 g/dL (6.3-8.2); TRIGLYCERIDES 156 mg/dL (<150)
[2018-09-30 06:26] LABS: DIRECT LDL 60 mg/dL (<100)
[2018-09-30 06:28] LABS: VLDL CHOLESTEROL 31.2 mg/dL (10-31)
[2018-09-30 06:29] LABS: FREE T3 3.26 pg/mL (2.77-5.27); FREE T4 (FREE THYROXINE) 0.93 ng/dL (0.78-2.19)
[2018-09-30 06:43] LABS: THYROID STIMULATING HORMONE 2.92 uIU/mL (0.47-4.68)
[2018-09-30] MEDS: INSULIN REG, HUMAN 100 UNIT/ML 3 ML VIAL (PYX) SUBCUT SCH ×4 (09:31→22:21)
--- NOTE | 2018-09-30 09:40 | PDOC CONSULTATION ---
Consultation Consult Date: 09/30/18 Provider Consulted: GERSON GONZALEZ Consult reason:: Hematology/Oncology consultation was requested for patient currently undergoing active treatment for breast cancer. 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 She was treated with gamma knife to the brain and has received several other chemotherapy agents as well. Most recently, 07/2018 she was found to have progression and she was started on Gemcitabine. After her second cycle, she was admitted to the hospital with right mastitis/cellulitis and treated with IV antibiotics for > 7 days. All symptoms resolved and she received most recent dose Gemzar on 09/27/2018. She was evaluated in the office and breast was again swollen and red. She was started on Augmentin, but this did not seem to help. She presented to the ED with fever. She has now been admitted and started on Vancomycin and ertapenim. Past Medical History Cardiac Medical History: Reports: Hyperlipidema, Hypertension Denies: Atrial Fibrillation, Coronary Artery Disease, DVT, Myocardial Infar ction, Pulmonary Embolism Pulmonary Medical History: Denies: Asthma, Chronic Obstructive Pulmonary Disease (COPD), Respiratory Failure EENT Medical History: Denies: Cataracts, Ears - Very Neurological Medical History: Denies: Hemorrhagic CVA, Ischemic CVA, Multiple Sclerosis, Seizures Endocrine Medical History: Reports: Diabetes Mellitus Type 2 Denies: Diabetes Mellitus Type 1, Hyperthyroidism, Hypothyroidism, Obesity Renal/ Medical History: Reports: Chronic Kidney Disease Denies: Nephrolithiasis Malignancy Medical History: Reports: Breast Cancer - 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 GI Medical History: Denies: Cirrhosis, Crohn's Disease, Hepatitis, Hiatal Hernia, Ulcerative Colitis Musculoskeltal Medical History: Denies: Arthritis, Fibromyalgia Skin Medical History: Denies: Eczema, Psoriasis Psychiatric Medical History: Denies: Alcohol Dependency, Depression, Substance Abuse, Tobacco Dependency Traumatic Medical History: Reports: None Hematology: Reports: Anemia Denies: Sickle Cell Disease, Bleeding Tendencies Infectious Medical History: Reports: None Past Surgical History Past Surgical History: Reports: Cardiac Catheterization, Coronary Stent, Vascular Surgery - Port-A-Cath placement left chest, Other - Breast/Skin biopsy Denies: Amputation, Mastectomy, Pacemaker Social History Lives with: Spouse/Significant other Smoking Status: Never Smoker Frequency of Alcohol Use: None Hx Recreational Drug Use: No Drugs: None Hx Prescription Drug Abuse: No - Advance Directive Resuscitation Status: Full Code Family History Family History: DM, Hypertension Family History: Patient was negative for "MY RISK" extended panel genetic testing. Parental Family History Reviewed: Yes Children Family History Reviewed: Yes - Daughter breast cancer age 36. Daughter positive for pancreatic Ca age 40. Sibling(s) Family History Reviewed.: Yes Medication/Allergy Allergies/Adverse Reactions: codeine Allergy (Intermediate, Verified 09/01/18 13:04) increased blood sugar Review of Systems Constitutional: PRESENT: fever(s). ABSENT: headache(s) Eyes: ABSENT: visual disturbances Ears: ABSENT: hearing changes Nose, Mouth, and Throat: ABSENT: sore throat Cardiovascular: ABSENT: chest pain Respiratory: ABSENT: dyspnea Gastrointestinal: ABSENT: abdominal pain, constipation, nausea Genitourinary: ABSENT: dysuria Integumentary: PRESENT: as per HPI Neurological: ABSENT: abnormal gait, confusion, dizziness Hematologic/Lymphatic: ABSENT: easy bruising Physical Exam Vital Signs: Temp Pulse Resp BP Pulse Ox 98.8 F 72 12 127/52 H 93 09/30/18 01:17 09/30/18 09:01 09/30/18 09:01 09/30/18 01:17 09/30/18 09:01 Intake & Output 09/29/18 09/30/18 10/01/18 06:59 06:59 06:59 Intake Total 450 Balance 450 Weight 70.5 kg General appearance: PRESENT: no acute distress, well-developed, well-nourished Exam: 73 year old female. Head exam: PRESENT: atraumatic, normocephalic Eye exam: PRESENT: PERRLA Neck exam: ABSENT: lymphadenopathy, tenderness Respiratory exam: PRESENT: clear to auscultation jenny, unlabored Cardiovascular exam: PRESENT: RRR. ABSENT: systolic murmur GI/Abdominal exam: PRESENT: normal bowel sounds, soft. ABSENT: tenderness Extremities exam: ABSENT: pedal edema Neurological exam: PRESENT: alert, awake Psychiatric exam: PRESENT: appropriate affect Skin exam: PRESENT: other - Right breast hard, erythematous, and edematous. No evidence of lymphedema or erythema in the axilla or right upper extremity. Results Laboratory Results: 09/30/18 05:15 09/30/18 05:15 09/29/18 09/29/18 09/29/18 21:59 22:13 22:13 WBC 7.1 RBC 2.76 L Hgb 8.4 L Hct 24.6 L MCV 89 MCH 30.3 MCHC 33.9 RDW 19.1 H Plt Count 126 L Seg Neutrophils % 88.6 H Lymphocytes % 8.5 L Monocytes % 2.0 L Eosinophils % 0.8 Basophils % 0.1 Absolute Neutrophils 6.3 Absolute Lymphocytes 0.6 Absolute Monocytes 0.1 Absolute Eosinophils 0.1 Absolute Basophils 0.0 VBG pH VBG pCO2 VBG HCO3 VBG Base Excess Sodium 135.0 L Potassium 4.0 Chloride 102 Carbon Dioxide 24 Anion Gap 9 BUN 39 H Creatinine 1.50 H Est GFR ( Amer) 41 L Est GFR (Non-Af Amer) 34 L Glucose 192 H Lactic Acid Calcium 9.3 Magnesium Total Bilirubin 0.6 AST 24 ALT 30 Alkaline Phosphatase 50 Total Protein 7.1 Albumin 3.8 Triglycerides Cholesterol LDL Cholesterol Direct VLDL Cholesterol HDL Cholesterol TSH Free T4 Free T3 pg/mL Urine Color YELLOW Urine Appearance CLOUDY Urine pH 5.0 Ur Specific [place] 1.013 Urine Protein 30 H Urine Glucose (UA) >=500 H Urine Ketones NEGATIVE Urine Blood SMALL H Urine Nitrite NEGATIVE Ur Leukocyte Esterase NEGATIVE Urine WBC (Auto) 5 09/29/18 09/29/18 09/30/18 22:13 22:13 05:15 WBC 5.6 RBC 2.57 L Hgb 7.6 L Hct 23.0 L MCV 90 MCH 29.8 MCHC 33.2 RDW 18.9 H Plt Count 113 L Seg Neutrophils % Lymphocytes % Monocytes % Eosinophils % Basophils % Absolute Neutrophils Absolute Lymphocytes Absolute Monocytes Absolute Eosinophils Absolute Basophils VBG pH 7.41 VBG pCO2 40.0 VBG HCO3 25.0 VBG Base Excess 0.5 Sodium Potassium Chloride Carbon Dioxide Anion Gap BUN Creatinine Est GFR ( Amer) Est GFR (Non-Af Amer) Glucose Lactic Acid 0.7 Calcium Magnesium Total Bilirubin AST ALT Alkaline Phosphatase Total Protein Albumin Triglycerides Cholesterol LDL Cholesterol Direct VLDL Cholesterol HDL Cholesterol TSH Free T4 Free T3 pg/mL Urine Color Urine Appearance Urine pH Ur Specific [place] Urine Protein Urine Glucose (UA) Urine Ketones Urine Blood Urine Nitrite Ur Leukocyte Esterase Urine WBC (Auto) 09/30/18 09/30/18 05:15 05:15 WBC RBC Hgb Hct MCV MCH MCHC RDW Plt Count Seg Neutrophils % Lymphocytes % Monocytes % Eosinophils % Basophils % Absolute Neutrophils Absolute Lymphocytes Absolute Monocytes Absolute Eosinophils Absolute Basophils VBG pH VBG pCO2 VBG HCO3 VBG Base Excess Sodium 138.2 Potassium 3.6 Chloride 105 Carbon Dioxide 26 Anion Gap 7 BUN 36 H Creatinine 1.46 H Est GFR ( Amer) 42 L Est GFR (Non-Af Amer) 35 L Glucose 196 H Lactic Acid Calcium 9.1 Magnesium 2.2 Total Bilirubin 0.5 AST 20 ALT 31 Alkaline Phosphatase 41 Total Protein 6.2 L Albumin 3.3 L Triglycerides 156 H Cholesterol 141.82 LDL Cholesterol Direct 60 VLDL Cholesterol 31.2 H HDL Cholesterol 46 TSH 2.92 Free T4 0.93 Free T3 pg/mL 3.26 Urine Color Urine Appearance Urine pH Ur Specific [place] Urine Protein Urine Glucose (UA) Urine Ketones Urine Blood Urine Nitrite Ur Leukocyte Esterase Urine WBC (Auto) 09/29/18 22:13 Troponin I < 0.012 Impressions: Chest X-Ray 09/29/18 21:43 IMPRESSION: No acute cardiopulmonary process copyright 2011 [employer]- All Rights Reserved Assessment & Plan - Diagnosis (1) Cellulitis of right breast Is this a current diagnosis for this admission?: Yes Plan: Continue antibiotics for now. It is difficult to say if this is a reaction to the gemzar or if this is infectious. Await blood culture results. (2) Metastatic breast cancer Is this a current diagnosis for this admission?: Yes Plan: Last dose Gemzar 3 days ago. No further treatment planned in the next week. Will discuss with consulting physicians at [place] as well. - Plan Summary Plan Summary: I will continue to follow her with you.
[2018-09-30] MEDS ORDERED: ERTAPENEM SODIUM INJ 1 GM VIAL IV SCH (10:00)
[2018-09-30] MEDS: FAMOTIDINE 20 MG TABLET PO SCH ×2 (10:11→22:20)
[2018-09-30] MEDS: DOCUSATE SODIUM 100 MG CAPSULE PO SCH ×2 (10:11→17:12)
[2018-09-30] MEDS ORDERED: NORMAL SALINE 250 ML IV PRN ×2 (10:14)
[2018-09-30] MEDS ORDERED: POLYETHYLENE GLYCOL 3350 POWDER 17 GM/1 PACKET PO ONE (10:30)
--- NOTE | 2018-09-30 11:11 | PDOC PROGRESS REPORT ---
Subjective Progress Note for:: 09/30/18 Subjective:: Patient is known to me from her previous admission. Recently discharged from this hospital after she was treated for the same problem. She is 73 years old female patient with past medical history of hypertension hyperlipidemia, CKD, anemia of chronic kidney disease, type 2 diabetes mellitus, inflammatory metastatic breast cancer presented with right breast swelling, pain tenderness and inflammation. Report is this happen to her whenever she takes her chemo session. I reviewed her lab and her medication. Her creatinine yesterday was 1.5 today it is 1.4 and her hemoglobin was 8.4 and dropped to 7.6. Patient is going to be transfused 2 units of packed RBC. Reason For Visit: ACUTE CELLULITIS RIGHT BREAST Physical Exam Vital Signs: Temp Pulse Resp BP Pulse Ox 98.5 F 72 12 119/59 L 93 09/30/18 08:35 09/30/18 09:01 09/30/18 09:01 09/30/18 08:35 09/30/18 09:01 Intake & Output 09/29/18 09/30/18 10/01/18 06:59 06:59 06:59 Intake Total 450 Balance 450 Weight 70.5 kg Results Laboratory Results: 09/30/18 05:15 09/30/18 05:15 09/29/18 09/29/18 09/29/18 21:59 22:13 22:13 WBC 7.1 RBC 2.76 L Hgb 8.4 L Hct 24.6 L MCV 89 MCH 30.3 MCHC 33.9 RDW 19.1 H Plt Count 126 L Seg Neutrophils % 88.6 H Lymphocytes % 8.5 L Monocytes % 2.0 L Eosinophils % 0.8 Basophils % 0.1 Absolute Neutrophils 6.3 Absolute Lymphocytes 0.6 Absolute Monocytes 0.1 Absolute Eosinophils 0.1 Absolute Basophils 0.0 VBG pH VBG pCO2 VBG HCO3 VBG Base Excess Sodium 135.0 L Potassium 4.0 Chloride 102 Carbon Dioxide 24 Anion Gap 9 BUN 39 H Creatinine 1.50 H Est GFR ( Amer) 41 L Est GFR (Non-Af Amer) 34 L Glucose 192 H Lactic Acid Calcium 9.3 Magnesium Total Bilirubin 0.6 AST 24 ALT 30 Alkaline Phosphatase 50 Total Protein 7.1 Albumin 3.8 Triglycerides Cholesterol LDL Cholesterol Direct VLDL Cholesterol HDL Cholesterol TSH Free T4 Free T3 pg/mL Urine Color YELLOW Urine Appearance CLOUDY Urine pH 5.0 Ur Specific [place] 1.013 Urine Protein 30 H Urine Glucose (UA) >=500 H Urine Ketones NEGATIVE Urine Blood SMALL H Urine Nitrite NEGATIVE Ur Leukocyte Esterase NEGATIVE Urine WBC (Auto) 5 09/29/18 09/29/18 09/30/18 22:13 22:13 05:15 WBC 5.6 RBC 2.57 L Hgb 7.6 L Hct 23.0 L MCV 90 MCH 29.8 MCHC 33.2 RDW 18.9 H Plt Count 113 L Seg Neutrophils % Lymphocytes % Monocytes % Eosinophils % Basophils % Absolute Neutrophils Absolute Lymphocytes Absolute Monocytes Absolute Eosinophils Absolute Basophils VBG pH 7.41 VBG pCO2 40.0 VBG HCO3 25.0 VBG Base Excess 0.5 Sodium Potassium Chloride Carbon Dioxide Anion Gap BUN Creatinine Est GFR ( Amer) Est GFR (Non-Af Amer) Glucose Lactic Acid 0.7 Calcium Magnesium Total Bilirubin AST ALT Alkaline Phosphatase Total Protein Albumin Triglycerides Cholesterol LDL Cholesterol Direct VLDL Cholesterol HDL Cholesterol TSH Free T4 Free T3 pg/mL Urine Color Urine Appearance Urine pH Ur Specific [place] Urine Protein Urine Glucose (UA) Urine Ketones Urine Blood Urine Nitrite Ur Leukocyte Esterase Urine WBC (Auto) 09/30/18 09/30/18 05:15 05:15 WBC RBC Hgb Hct MCV MCH MCHC RDW Plt Count Seg Neutrophils % Lymphocytes % Monocytes % Eosinophils % Basophils % Absolute Neutrophils Absolute Lymphocytes Absolute Monocytes Absolute Eosinophils Absolute Basophils VBG pH VBG pCO2 VBG HCO3 VBG Base Excess Sodium 138.2 Potassium 3.6 Chloride 105 Carbon Dioxide 26 Anion Gap 7 BUN 36 H Creatinine 1.46 H Est GFR ( Amer) 42 L Est GFR (Non-Af Amer) 35 L Glucose 196 H Lactic Acid Calcium 9.1 Magnesium 2.2 Total Bilirubin 0.5 AST 20 ALT 31 Alkaline Phosphatase 41 Total Protein 6.2 L Albumin 3.3 L Triglycerides 156 H Cholesterol 141.82 LDL Cholesterol Direct 60 VLDL Cholesterol 31.2 H HDL Cholesterol 46 TSH 2.92 Free T4 0.93 Free T3 pg/mL 3.26 Urine Color Urine Appearance Urine pH Ur Specific [place] Urine Protein Urine Glucose (UA) Urine Ketones Urine Blood Urine Nitrite Ur Leukocyte Esterase Urine WBC (Auto) 09/29/18 22:13 Troponin I < 0.012 Impressions: Chest X-Ray 09/29/18 21:43 IMPRESSION: No acute cardiopulmonary process copyright 2011 [employer]- All Rights Reserved Assessment and Plan - Diagnosis (1) Right breast mastitis Is this a current diagnosis for this admission?: Yes Plan: It is recurrent. Patient has been empirically started on vancomycin and heparin by the on-call physician. We will de-escalate his antibiotic based on her clinical progress and culture results. (2) Anemia of malignancy Is this a current diagnosis for this admission?: Yes Plan: Patient will have underlying anemia of CKD and possible iron deficiency anemia. Patient is going to be transfused 2 units of packed RBC. And will check her hematocrit and hemoglobin in the a.m. (3) Stage IV inflammatory carcinoma of breast Qualifiers: Laterality: right Qualified Code(s): C50.911 - Malignant neoplasm of unspecified site of right female breast Is this a current diagnosis for this admission?: Yes Plan: Management per her primary oncologist. (4) Coronary artery disease Qualifiers: Coronary Disease-Associated Artery/Lesion type: [place] artery Is this a current diagnosis for this admission?: Yes Plan: No anginal symptoms (5) Type 2 diabetes mellitus Is this a current diagnosis for this admission?: Yes Plan: Continue her home meds and putting her on sliding scale. (6) CKD (chronic kidney disease) Qualifiers: Chronic kidney disease stage: stage 3 (moderate) Qualified Code(s): N18.3 - Chronic kidney disease, stage 3 (moderate) Is this a current diagnosis for this admission?: Yes Plan: Stable we will avoid nephrotoxic agents. (7) Hypertension Qualifiers: Hypertension type: essential hypertension Qualified Code(s): I10 - Essential (primary) hypertension Is this a current diagnosis for this admission?: Yes Plan: Continue home meds (8) Hyperlipidemia Qualifiers: Hyperlipidemia type: unspecified Qualified Code(s): E78.5 - Hyperlipidemia, unspecified Is this a current diagnosis for this admission?: Yes Plan: Continue home meds
[2018-09-30] MEDS: IBUPROFEN 800 MG TABLET PO PRN ×2 (12:09→14:14)
[2018-09-30] MEDS ORDERED: IBUPROFEN 800 MG TABLET PO ONE (15:00)
[2018-09-30] MEDS ORDERED: NORMAL SALINE 500 ML IV ONE (16:15)
--- NOTE | 2018-09-30 17:33 | Progress Note ---
Provider Note Provider Note: ID Consult Note Asked to review patient's chart. Pt not seen or examined. Pt is a 73 year old woman with metastatic inflammatory breast cancer admitted on 09/29/18 with 5 day history of worsening right breast swelling, pain and redness along with fever up to 102 F at home. She was appreciated to have erythema, edema, induration and tenderness to palpation involving the right anterior chest from the up to the subclavicular area, to the sternum medially, and laterally to the axillary line with no appreciable fluctuance. Blood cultures were drawn and are in process. Impression/Recommendations - As an inpatient, IV vancomycin alone should be appropriate for mastitis. Pseudomonas is not likely as a cause of mastitis. Suggest discontinuing cefepime. 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 - If the patient is able to tolerate PO without difficulty, consider one of the following options: 1. Bactrim 1 DS BID PO 2. Clindamycin 300 mg TID PO 3. Doxycycline 100 mg BID plus Keflex 500 mg QID The patient's baseline renal dysfunction does not prohibit use of Bactrim, but she probably would need repeat chemistries in a few days to make sure she is not having any problems with hyperkalemia developing on treatment. Clindamycin 300 mg TID PO is not as reliably active against MRSA (20-30% of isolates may have clindamycin resistance), and response would have to be carefully monitored. Doxycycline has fairly reliably activity against community acquired MRSA (>90% of isolates) but is not reliable against beta-hemolytic streptococci and could be combined with Keflex 500 mg QID. Choice between the above will have to depend upon factors, such as the patient's preference, financial cost, concern regarding clinical and lab monitoring, and pill burden. - Length of therapy: Treating for 7 days may be sufficient but could be extended to 10-14 days if slow to respond. Tone Ramos MD [facility] Infectious Diseases pager [phone]
[2018-09-30] MEDS ORDERED: CEFEPIME 1 GM/D5W RTU 1 GM/50 ML RTUPB IV SCH (22:00)
[2018-09-30] MEDS ORDERED: ERTAPENEM SODIUM 1 GM in NORMAL SALINE 50 ML IV SCH (22:00)
[2018-09-30 22:51] LABS: ABSOLUTE EOSINOPHILS # (AUTO) 0.2 10^3/uL (0.0-0.6); ABSOLUTE LYMPHOCYTES (AUTO) 0.9 10^3/uL (0.5-4.7); ABSOLUTE MONOCYTES (AUTO) 0.1 10^3/uL (0.1-1.4); ABSOLUTE NEUT (AUTO) 4.8 10^3/uL (1.7-8.2); BASOPHILS % (AUTO) 0.3 % (0-2); HEMATOCRIT 29.7 % (36.0-47.0); LYMPHOCYTES % (AUTO) 15.3 % (13-45); MEAN CORPUSCULAR HEMOGLOBIN 30.1 pg (27.0-33.4); MEAN CORPUSCULAR HGB CONC 34.3 g/dL (32.0-36.0); MEAN CORPUSCULAR VOLUME 88 fl (80-97); MONOCYTES % (AUTO) 1.5 % (3-13); PLATELET COUNT 100 10^3/uL (150-450); RED BLOOD COUNT 3.38 10^6/uL (3.72-5.28); RED CELL DISTRIBUTION WIDTH 16.8 % (11.5-14.0); SEGMENTED NEUTROPHILS % (AUTO) 79.9 % (42-78); TOTAL CELLS COUNTED % (AUTO) 100 %
[2018-09-30 22:52] LABS: HEMOGLOBIN 10.2 g/dL (12.0-15.5)
[2018-10-01] MEDS ORDERED: VANCOMYCIN HCL 500 MG in DEXTROSE 5%-WATER 100 ML IV SCH (06:00)
[2018-10-01] MEDS: HEPARIN SOD (PORCINE) 5,000 UNIT/ML 1 ML SYRINGE SUBCUT SCH ×3 (06:04→22:08)
[2018-10-01 06:07] LABS: HEMATOCRIT 31.3 % (36.0-47.0); HEMOGLOBIN 10.9 g/dL (12.0-15.5); MEAN CORPUSCULAR HEMOGLOBIN 30.3 pg (27.0-33.4); MEAN CORPUSCULAR HGB CONC 34.7 g/dL (32.0-36.0); MEAN CORPUSCULAR VOLUME 87 fl (80-97); PLATELET COUNT 100 10^3/uL (150-450); RED BLOOD COUNT 3.59 10^6/uL (3.72-5.28); RED CELL DISTRIBUTION WIDTH 16.9 % (11.5-14.0); WHITE BLOOD COUNT 6.5 10^3/uL (4.0-10.5)
[2018-10-01 06:40] LABS: ANION GAP 7 (5-19); BLOOD UREA NITROGEN 33 mg/dL (7-20); CALCIUM 8.9 mg/dL (8.4-10.2); CARBON DIOXIDE 24 mmol/L (22-30); CHLORIDE 108 mmol/L (98-107); GLUCOSE 202 mg/dL (75-110); SODIUM 139.1 mmol/L (137-145)
[2018-10-01] MEDS: INSULIN REG, HUMAN 100 UNIT/ML 3 ML VIAL (PYX) SUBCUT SCH ×4 (07:26→22:18)
--- NOTE | 2018-10-01 08:24 | PDOC PROGRESS REPORT ---
Subjective Progress Note for:: 10/01/18 Subjective:: Patient states fevers improve with medications. Pain is much improved. It is uncomfortable, but not enough to ask for pain medication. She is anxious to go home. ROS: no dyspnea. No nausea. Reason For Visit: MASTITIS OF RIGHT BREAST,ANEMIA OF MALIGNANCY,STAG Physical Exam Vital Signs: Temp Pulse Resp BP Pulse Ox 97.2 F 70 16 115/49 L 98 10/01/18 00:11 10/01/18 00:11 09/30/18 20:24 10/01/18 00:11 10/01/18 00:11 Intake & Output 09/30/18 10/01/18 10/02/18 06:59 06:59 06:59 Intake Total 450 2137 Balance 450 2137 Weight 70.5 kg 70.8 kg General appearance: PRESENT: well-developed, well-nourished Head exam: PRESENT: normocephalic Respiratory exam: PRESENT: clear to auscultation jenny, unlabored Cardiovascular exam: PRESENT: RRR Neurological exam: PRESENT: alert, awake Psychiatric exam: PRESENT: appropriate affect Skin exam: PRESENT: other - Right breast unchanged today. Remains erythematous, appears engorged and very firm. Results Laboratory Results: 10/01/18 04:48 10/01/18 04:48 09/30/18 09/30/18 10/01/18 11:14 22:34 04:48 WBC 6.0 6.5 RBC 3.38 L 3.59 L Hgb 10.2 L D 10.9 L Hct 29.7 L 31.3 L MCV 88 87 MCH 30.1 30.3 MCHC 34.3 34.7 RDW 16.8 H 16.9 H Plt Count 100 L 100 L Seg Neutrophils % 79.9 H Lymphocytes % 15.3 Monocytes % 1.5 L Eosinophils % 3.0 Basophils % 0.3 Absolute Neutrophils 4.8 Absolute Lymphocytes 0.9 Absolute Monocytes 0.1 Absolute Eosinophils 0.2 Absolute Basophils 0.0 Sodium Potassium Chloride Carbon Dioxide Anion Gap BUN Creatinine Est GFR ( Amer) Est GFR (Non-Af Amer) Glucose Calcium Blood Type A POSITIVE Antibody Screen NEGATIVE 10/01/18 04:48 WBC RBC Hgb Hct MCV MCH MCHC RDW Plt Count Seg Neutrophils % Lymphocytes % Monocytes % Eosinophils % Basophils % Absolute Neutrophils Absolute Lymphocytes Absolute Monocytes Absolute Eosinophils Absolute Basophils Sodium 139.1 Potassium 4.0 Chloride 108 H Carbon Dioxide 24 Anion Gap 7 BUN 33 H Creatinine 1.62 H Est GFR ( Amer) 38 L Est GFR (Non-Af Amer) 31 L Glucose 202 H Calcium 8.9 Blood Type Antibody Screen 09/29/18 22:13 Troponin I < 0.012 Impressions: Chest X-Ray 09/29/18 21:43 IMPRESSION: No acute cardiopulmonary process copyright 2011 [employer]- All Rights Reserved Assessment & Plan - Diagnosis (1) Cellulitis of right breast Is this a current diagnosis for this admission?: Yes Plan: This is the second bout of the same thing in the past 2 months. I reviewed recommendations from Infectious disease. Her blood cultures have been no growth to date. However, she still has fevers (2 pm yesterday). She is not neutropenic, so I am OK with stopping cefapime and using Vanc only. I am also OK with DC home on PO ABX, if no further fevers by 2 pm today. (2) Metastatic breast cancer Is this a current diagnosis for this admission?: Yes Plan: Again, this may also be a reaction to the chemotherapy for her inflammatory breast cancer. I have asked her to try to arrange an appointment at [place] for their opinion as well. She will try to see them within the next 2 weeks. No further chemo planned for the next week.
[2018-10-01] MEDS: SULFAMETHOXAZOLE/TRIMETHOPRIM 800-160 MG TABLET PO SCH ×2 (10:21→22:19)
[2018-10-01] MEDS: FAMOTIDINE 20 MG TABLET PO SCH ×2 (10:21→22:19)
[2018-10-01] MEDS: DOCUSATE SODIUM 100 MG CAPSULE PO SCH ×2 (10:22→17:24)
--- NOTE | 2018-10-01 13:50 | PDOC PROGRESS REPORT ---
Subjective Progress Note for:: 10/01/18 Subjective:: This is a 73-year-old female with a past medical history of hypertension hyperlipidemia, CKD, anemia of chronic kidney disease, type 2 diabetes mellitus, inflammatory metastatic breast cancer presented with right breast swelling, pain tenderness and inflammation. She was admitted for possible right breast cellulitis versus inflammation related to cancer or chemotherapy. No acute event overnight. She did have a febrile episode yesterday afternoon. The right breast looks red and swollen. She says that the tenderness is better and has improved. Noted ID recommendations. Reason For Visit: MASTITIS OF RIGHT BREAST,ANEMIA OF MALIGNANCY,STAG Physical Exam Vital Signs: Temp Pulse Resp BP Pulse Ox 98.8 F 70 15 132/58 H 96 10/01/18 10:33 10/01/18 10:33 10/01/18 10:33 10/01/18 10:33 10/01/18 10:33 Intake & Output 09/30/18 10/01/18 10/02/18 06:59 06:59 06:59 Intake Total 450 2137 100 Balance 450 2137 100 Weight 155 lb 6.814 oz 156 lb 1.396 oz General appearance: PRESENT: no acute distress, well-developed, well-nourished Head exam: PRESENT: atraumatic, normocephalic Eye exam: PRESENT: conjunctiva pink, EOMI, PERRLA. ABSENT: scleral icterus Ear exam: PRESENT: normal external ear exam Mouth exam: PRESENT: moist, tongue midline Neck exam: ABSENT: carotid bruit, JVD, lymphadenopathy, thyromegaly Respiratory exam: PRESENT: clear to auscultation jenny, other - Right breast noted to be erythematous and slightly swollen, no significant tenderness with palpation. ABSENT: rales, rhonchi, wheezes Cardiovascular exam: PRESENT: RRR. ABSENT: diastolic murmur, rubs, systolic murmur Pulses: PRESENT: normal dorsalis pedis pul GI/Abdominal exam: PRESENT: normal bowel sounds, soft. ABSENT: distended, guarding, mass, organolmegaly, rebound, tenderness Rectal exam: PRESENT: deferred Extremities exam: PRESENT: full ROM. ABSENT: calf tenderness, clubbing, pedal edema Neurological exam: PRESENT: alert, awake, oriented to person, oriented to place, oriented to time, oriented to situation, CN II-XII grossly intact. ABSENT: motor sensory deficit Results Laboratory Results: 10/01/18 04:48 10/01/18 04:48 09/30/18 09/30/18 10/01/18 11:14 22:34 04:48 WBC 6.0 6.5 RBC 3.38 L 3.59 L Hgb 10.2 L D 10.9 L Hct 29.7 L 31.3 L MCV 88 87 MCH 30.1 30.3 MCHC 34.3 34.7 RDW 16.8 H 16.9 H Plt Count 100 L 100 L Seg Neutrophils % 79.9 H Lymphocytes % 15.3 Monocytes % 1.5 L Eosinophils % 3.0 Basophils % 0.3 Absolute Neutrophils 4.8 Absolute Lymphocytes 0.9 Absolute Monocytes 0.1 Absolute Eosinophils 0.2 Absolute Basophils 0.0 Sodium Potassium Chloride Carbon Dioxide Anion Gap BUN Creatinine Est GFR ( Amer) Est GFR (Non-Af Amer) Glucose Calcium Blood Type A POSITIVE Antibody Screen NEGATIVE 10/01/18 04:48 WBC RBC Hgb Hct MCV MCH MCHC RDW Plt Count Seg Neutrophils % Lymphocytes % Monocytes % Eosinophils % Basophils % Absolute Neutrophils Absolute Lymphocytes Absolute Monocytes Absolute Eosinophils Absolute Basophils Sodium 139.1 Potassium 4.0 Chloride 108 H Carbon Dioxide 24 Anion Gap 7 BUN 33 H Creatinine 1.62 H Est GFR ( Amer) 38 L Est GFR (Non-Af Amer) 31 L Glucose 202 H Calcium 8.9 Blood Type Antibody Screen 09/29/18 21:59 Clean Catch Midstream Urine Culture - Final NO GROWTH 2 DAYS 09/29/18 22:13 Troponin I < 0.012 Impressions: Chest X-Ray 09/29/18 21:43 IMPRESSION: No acute cardiopulmonary process copyright 2011 [employer]- All Rights Reserved Assessment and Plan - Diagnosis (1) Cellulitis of right breast Is this a current diagnosis for this admission?: Yes Plan: Possible cellulitis versus inflammation related to her inflammatory breast CA versus effect from chemotherapy. Currently on vancomycin and cefepime. Noted ID recommendations. Will discontinue IV antibiotics. Will switch patient to PO Bactrim today. Plan to discharge in the next 24 hours if she will remain afebrile in the next 24 hours. (2) Anemia of malignancy Is this a current diagnosis for this admission?: Yes Plan: S/P 2 units of packed RBC. (3) CKD (chronic kidney disease) Qualifiers: Chronic kidney disease stage: stage 3 (moderate) Qualified Code(s): N18.3 - Chronic kidney disease, stage 3 (moderate) Is this a current diagnosis for this admission?: Yes Plan: Stable. (4) Coronary artery disease Qualifiers: Coronary Disease-Associated Artery/Lesion type: [place] artery Is this a current diagnosis for this admission?: Yes Plan: Stable. Continue home meds. (5) Diabetes mellitus type 2 in nonobese Is this a current diagnosis for this admission?: Yes Plan: Continue sliding scale. Resume Lantus at a lower dose of 20 units at bedtime. (6) Stage IV inflammatory carcinoma of breast Qualifiers: Laterality: right Qualified Code(s): C50.911 - Malignant neoplasm of unspecified site of right female breast Is this a current diagnosis for this admission?: Yes Plan: Management per her primary oncologist. - Time Time Spent with patient: 25-34 minutes
[2018-10-01] MEDS ORDERED: INSULIN GLARGINE,HUM.REC.ANLOG 1,000 UNIT/10 ML VIAL SUBCUT SCH (22:00)
[2018-10-02 06:37] LABS: ANION GAP 8 (5-19); BLOOD UREA NITROGEN 23 mg/dL (7-20); CALCIUM 7.8 mg/dL (8.4-10.2); CARBON DIOXIDE 22 mmol/L (22-30); CHLORIDE 110 mmol/L (98-107); GLUCOSE 121 mg/dL (75-110); POTASSIUM 3.6 mmol/L (3.6-5.0)
[2018-10-02] MEDS: HEPARIN SOD (PORCINE) 5,000 UNIT/ML 1 ML SYRINGE SUBCUT SCH ×2 (07:02→13:55)
--- NOTE | 2018-10-02 07:50 | EKG REPORT ---
SEVERITY:- NORMAL ECG - SINUS RHYTHM : Confirmed by: Mihir Santana MD 02-Oct-2018 07:49:41
[2018-10-02] MEDS: INSULIN REG, HUMAN 100 UNIT/ML 3 ML VIAL (PYX) SUBCUT SCH ×3 (08:02→16:48)
--- NOTE | 2018-10-02 08:31 | PDOC PROGRESS REPORT ---
Subjective Progress Note for:: 10/02/18 Subjective:: Patient is very anxious to go home. However, she states that since switching from the IV to the PO ABX, she feels the breast is a bit more red and is itching. She is not sure if this is a reaction to the new medications. Otherwise, she still very much wants to go home. Reason For Visit: MASTITIS OF RIGHT BREAST,ANEMIA OF MALIGNANCY,STAG Physical Exam Vital Signs: Temp Pulse Resp BP Pulse Ox 99.2 F 82 16 145/59 H 95 10/02/18 03:00 10/01/18 23:00 10/02/18 03:00 10/01/18 23:00 10/01/18 23:00 Intake & Output 10/01/18 10/02/18 10/03/18 06:59 06:59 06:59 Intake Total 2137 1683 Balance 2137 1683 Weight 70.8 kg 71.1 kg General appearance: PRESENT: well-developed, well-nourished Head exam: PRESENT: normocephalic Respiratory exam: PRESENT: clear to auscultation jenny, unlabored Cardiovascular exam: PRESENT: RRR Neurological exam: PRESENT: alert, awake Psychiatric exam: PRESENT: appropriate affect Skin exam: PRESENT: other - No significant change in breast. Some erythema now along the chest wall, but minimal. Results Laboratory Results: 10/01/18 04:48 10/02/18 06:01 10/02/18 06:01 Sodium 140.0 Potassium 3.6 Chloride 110 H Carbon Dioxide 22 Anion Gap 8 BUN 23 H Creatinine 1.25 Est GFR ( Amer) 51 L Est GFR (Non-Af Amer) 42 L Glucose 121 H Calcium 7.8 L 09/29/18 21:59 Clean Catch Midstream Urine Culture - Final NO GROWTH 2 DAYS 09/29/18 22:13 Troponin I < 0.012 Impressions: Chest X-Ray 09/29/18 21:43 IMPRESSION: No acute cardiopulmonary process copyright 2011 [employer]- All Rights Reserved Assessment & Plan - Diagnosis (1) Cellulitis of right breast Is this a current diagnosis for this admission?: Yes Plan: I spoke with Tone Ramos with Infectious disease. We discussed her recommendations. Very difficult to tell if this is infectious and what ABX will be appropriate, but if she does not do well on the Bactrim, then consider change back to the IV Vanc. (2) Metastatic breast cancer Is this a current diagnosis for this admission?: Yes Plan: Again, difficult to fully determine if this is purely infectious or if this is metastatic breast cancer, or possibly reaction to the gemzar as well. Continue current therapy and patient to see [facility] next week. - Plan Summary Plan Summary: OK to discharge from my standpoint.
[2018-10-02] MEDS: FAMOTIDINE 20 MG TABLET PO SCH (09:23)
[2018-10-02] MEDS: SULFAMETHOXAZOLE/TRIMETHOPRIM 800-160 MG TABLET PO SCH (09:23)
[2018-10-02] MEDS: DOCUSATE SODIUM 100 MG CAPSULE PO SCH ×2 (09:23→16:47)
[2018-10-02 17:48] VITALS: BP 144/70
[2018-10-02] MEDS ORDERED: SULFAMETHOXAZOLE/TRIMETHOPRIM 800-160 MG TABLET PO SCH (18:00)
--- NOTE | 2018-10-03 18:12 | PDOC DISCHARGE SUMMARY ---
General - Admit/Disc Date/PCP Admission Date/Primary Care Provider: 09/30/18 15:36 ROCHELLE HUTSON MD Discharge Date: 10/02/18 - Discharge Diagnosis (1) Cellulitis of right breast Is this a current diagnosis for this admission?: Yes (2) Anemia of malignancy Is this a current diagnosis for this admission?: Yes (3) CKD (chronic kidney disease) Is this a current diagnosis for this admission?: Yes (4) Coronary artery disease Is this a current diagnosis for this admission?: Yes (5) Diabetes mellitus type 2 in nonobese Is this a current diagnosis for this admission?: Yes (6) Stage IV inflammatory carcinoma of breast Is this a current diagnosis for this admission?: Yes - Additional Information Resuscitation Status: Full Code Discharge Diet: As Tolerated Discharge Activity: Activity As Tolerated, Balance Activity w/Rest Prescriptions: Sulfamethoxazole/Trimethoprim [Septra-Ds 800-160 mg Tablet] 1 tab PO Q12 7 Days #14 tablet Home Medications: Carboxymethylcellulose Sodium [Refresh Plus 0.5% Oph Soln 0.4 ml Droperette] 1 drop OU Q6HP PRN 09/30/18 Cholecalciferol (Vitamin D3) [Vitamin D3 1000 Unit Tablet] 1,000 unit PO DAILY 09/30/18 Insulin Glargine,Hum.rec.anlog [Lantus Insulin 100 Unit/1 ml 10 ml] 42 units SQ QHS 09/30/18 Insulin Lispro [Humalog Insulin (Lispro) 100 unit/mL] 0 unit SQ .SLIDING SCALE 09/30/18 Insulin Lispro [Humalog Insulin (Lispro) 100 unit/mL] 2 unit SQ [id number] 09/30/18 Insulin Lispro [Humalog Insulin (Lispro) 100 unit/mL] 4 unit SQ BIDBS 09/30/18 Lactulose [Constulose 10 gm/15 mL Oral Solution] 10 gm PO DAILYP PRN 09/30/18 Rosuvastatin Calcium [Crestor 20 mg Tablet] 20 mg PO QHS 09/30/18 Sulfamethoxazole/Trimethoprim [Septra-Ds 800-160 mg Tablet] 1 tab PO Q12 7 Days #14 tablet 10/02/18 History of Present Illness History of Present Illness: Admitting hospitalist's H&P: KENNEY FARLEY is a 73 year old female who presented to the emergency room with a 5-day history of swelling and pain of the right breast. Patient admits that her right breast developed mild erythema and tenderness 5 days ago that has gradually increased in size to involve her entire right upper chest from her axilla to her breastbone and her collarbone to her mid breast. The erythema and tenderness have been accompanied by an increasing hardness and swelling of the entire right anterior chest and breast. The pain is now moderate and the swelling is severe. She also developed a fever of 102.4 F at home earlier today and thus decided to present to the emergency room for treatment. She admits a prior similar episode approximately 1 month ago after receiving a new chemotherapy drug for treatment of her metastatic breast cancer. She notes that she developed the same symptoms the day after receiving the same drug this month. She denies other accompanying or associated signs or symptoms. She is not identified any other aggravating or ameliorating factors for her right david ast pain and swelling. In the emergency room she was found to have an elevated temperature, but her CBC was normal as was her serum lactic acid. Examination in the ER showed no evidence of fluctuance or abscess formation in the area. Antibiotic therapy was initiated and the patient was admitted to observation status to arrange for outpatient antibiotic therapy, as she has no desire to stay in the hospital if she can possibly be at home. Hospital Course Hospital Course: This is a 73-year-old female with a past medical history of hypertension hyperl ipidemia, CKD, anemia of chronic kidney disease, type 2 diabetes mellitus, inflammatory metastatic breast cancer presented with right breast swelling, pain tenderness and inflammation. She was admitted for possible right breast cellulitis versus inflammation related to cancer or chemotherapy. She was initially started on vancomycin and cefepime. Her left breast lesions is deemed likely as a combination of possible cellulitis versus inflammation related to her inflammatory breast CA versus effect from chemotherapy. ID was also consulted. IV diuretics were discontinued and she was switched to p.o. Bactrim. She did show slow but gradual improvement in the erythema with antibiotics. Ultrasound of the breast was also done and was called in as negative for abscess. She will be discharged on p.o. Bactrim. Physical Exam Vital Signs: Temp Pulse Resp BP Pulse Ox 98.2 F 76 17 144/70 H 96 10/02/18 17:44 10/02/18 17:44 07/17/19 17:44 10/02/18 17:44 10/02/18 17:44 Intake & Output 10/02/18 10/03/18 10/04/18 06:59 06:59 06:59 Intake Total 1683 Balance 1683 Weight 156 lb 11.979 oz General appearance: PRESENT: no acute distress, well-developed, well-nourished Head exam: PRESENT: atraumatic, normocephalic Eye exam: PRESENT: conjunctiva pink, EOMI, PERRLA. ABSENT: scleral icterus Ear exam: PRESENT: normal external ear exam Mouth exam: PRESENT: moist, tongue midline Neck exam: ABSENT: carotid bruit, JVD, lymphadenopathy, thyromegaly Respiratory exam: PRESENT: clear to auscultation jenny. ABSENT: rales, rhonchi, wheezes Cardiovascular exam: PRESENT: RRR. ABSENT: diastolic murmur, rubs, systolic murmur Pulses: PRESENT: normal dorsalis pedis pul GI/Abdominal exam: PRESENT: normal bowel sounds, soft. ABSENT: distended, guar ding, mass, organolmegaly, rebound, tenderness Rectal exam: PRESENT: deferred Neurological exam: PRESENT: alert, awake, oriented to person, oriented to place, oriented to time, oriented to situation, CN II-XII grossly intact. ABSENT: motor sensory deficit Skin exam: PRESENT: other - erythema on the left breast Results Laboratory Results: 10/01/18 04:48 10/02/18 06:01 09/29/18 22:13 Troponin I < 0.012 Impressions: Chest X-Ray 09/29/18 21:43 IMPRESSION: No acute cardiopulmonary process copyright 2011 [employer]- All Rights Reserved Qualifiers - * PATIENT BEING DISCHARGED WITH ANY OF THE FOLLOWING DIAGNOSIS: No Acute Heart Failure - Is this a Heart Failure Patient?: No LVEF < 40%?: No- if no continue to question #3 3. Anticoagulant therapy for permanect/persistent/paraoxysmal Afib or Aflutter: N/A
== END 2018-10-02 18:30 | disposition home or self-care (01) | DRG 600 ==
LOC: ER 20:40 → INTOOBSV 23:45 → OBSVTOIN 23:45 → EH 23:45 → 4N 09-30 01:20 → OBSVTOIN 09-30 15:36
PROVIDERS: ADMIT Emergency Medicine; ATTEND Emergency Medicine
PROC: 30233N1 Transfusion of Nonautologous Red Blood Cells into Peripheral Vein, Percutaneous Approach (ICD-10-PCS; principal; 2018-09-30)
DX: N61.0 Mastitis without abscess (principal); C79.49 Secondary malignant neoplasm of other parts of nervous system; C79.51 Secondary malignant neoplasm of bone; C79.2 Secondary malignant neoplasm of skin; C50.911 Malignant neoplasm of unspecified site of right female breast; C50.912 Malignant neoplasm of unspecified site of left female breast; D63.1 Anemia in chronic kidney disease; D63.0 Anemia in neoplastic disease; E78.5 Hyperlipidemia, unspecified; T45.1X5A Adverse effect of antineoplastic and immunosuppressive drugs, initial encounter; E11.22 Type 2 diabetes mellitus with diabetic chronic kidney disease; I12.9 Hypertensive chronic kidney disease with stage 1 through stage 4 chronic kidney disease, or unspecified chronic kidney disease; N18.9 Chronic kidney disease, unspecified; Z86.14 Personal history of Methicillin resistant Staphylococcus aureus infection; Z88.5 Allergy status to narcotic agent; Z17.1 Estrogen receptor negative status [ER-]; Z85.3 Personal history of malignant neoplasm of breast; Z82.49 Family history of ischemic heart disease and other diseases of the circulatory system; Z83.3 Family history of diabetes mellitus; Z79.4 Long term (current) use of insulin
CPT/HCPCS: 36415; 36430; 71045; 76641; 80048; 80053; 80061; 81001; 82803; 82962; 83036; 83605; 83735; 84439; 84443; 84481; 84484; 85025; 85027; 85610; 86850; 86900; 86901; 86920; 87040; 87086; 93005; 93010; G0378; J0692; J1335; J1642; J1815; J3370; J3490; J7040; J7060; P9016

== ENCOUNTER → 2018-10-16 | Outpatient (CLI) | payer MEDICARE ==
--- NOTE | 2018-10-16 12:38 | RADIOLOGY REPORT (SQ) ---
EXAM DESCRIPTION: CERV SP 4 OR 5 VIEWS COMPLETED DATE/TIME: 10/16/2018 12:14 pm REASON FOR STUDY: NECK PAIN M79.604 PAIN IN RIGHT LEG M79.605 PAIN IN LEFT LEG COMPARISON: None. NUMBER OF VIEWS: Five views. TECHNIQUE: AP, lateral, obliques and odontoid radiographic images acquired of the cervical spine. LIMITATIONS: None. FINDINGS: MINERALIZATION: Normal. ALIGNMENT: Anatomic. VERTEBRAE: Vertebral bodies of normal height. DISCS: Mild disc space narrowing at C5-C6 and C6-C7. There is small anterior osteophytes from C4 thr ough C6. FORAMINA: No osteophytes or foraminal narrowing. LATERAL AND POSTERIOR ELEMENTS: Facets, lateral masses and spinous processes without significant find ings. HARDWARE: None in the spine. SOFT TISSUES: No masses or calcifications. Lung apices clear. OTHER: No other significant finding. IMPRESSION: Mild disc degenerative disease as described. No acute findings. TECHNICAL DOCUMENTATION: JOB ID: [id number] [employer] All Rights Reserved Reading location - IP/workstation name: [email or web address]
--- NOTE | 2018-10-16 19:46 | XCELERA REPORT ---
[address] [facility] [address] Lower Extremity Venous Evaluation Procedure: Color flow and duplex imaging bilaterally of the veins of the lower extremities as well as the Common Femoral veins. Right Sided Venous Evaluation Normal vessel filling wall to wall, compression and augmentation as well as Colour flow down to the infrageniculate veins. Left Sided Venous Evaluation Normal vessel filling wall to wall, compression and augmentation as well as Colour flow down to the infrageniculate veins. Interpretation Summary No duplex evidence of DVT or obstruction in the bilateral lower extremities. Name: KENNEY FARLEY Age: 73 yrs Gender: Female : 1945 Patient Status: Outpatient Patient Location: Study Date: 10/16/2018 01:17 PM Reason For Study: PAIN Ordering Physician: LINDSAY MIRELES Performed By: Rian Vásquez : LINDSAY MIRELES > Jakub Bob
== END ==
LOC: SP 11:47
PROVIDERS: ATTEND Family Medicine Geriatric Medicine
DX: M50.323 Other cervical disc degeneration at C6-C7 level (principal); M79.605 Pain in left leg; M79.604 Pain in right leg
CPT/HCPCS: 72050; 93970

== ENCOUNTER → 2019-05-23 | Outpatient (CLI) | payer MEDICARE ==
[2019-05-23 09:18] LABS: ANION GAP 7 (5-19); BLOOD UREA NITROGEN 28 mg/dL (7-20); CARBON DIOXIDE 33 mmol/L (22-30); CHLORIDE 102 mmol/L (98-107); CHOLESTEROL 318.37 mg/dL (0-200); GLUCOSE 108 mg/dL (75-110); POTASSIUM 4.3 mmol/L (3.6-5.0); TRIGLYCERIDES 215 mg/dL (<150)
[2019-05-23 09:28] LABS: DIRECT LDL 189 mg/dL (<100)
[2019-05-24 12:36] LABS: MICROALBUMIN URINE 26.6 ug/mL (Not Estab.)
== END ==
LOC: LAB 08:05
PROVIDERS: ATTEND Family Medicine Geriatric Medicine
DX: E11.21 Type 2 diabetes mellitus with diabetic nephropathy (principal); D64.9 Anemia, unspecified; E78.5 Hyperlipidemia, unspecified; Z79.899 Other long term (current) drug therapy
CPT/HCPCS: 36415; 80048; 80061; 82043; 82570; 83036; 84460

== ENCOUNTER → 2019-09-18 | Outpatient (CLI) | payer MEDICARE ==
[2019-09-18 09:28] LABS: TRIGLYCERIDES 309 mg/dL (<150)
[2019-09-18 09:39] LABS: DIRECT LDL 172 mg/dL (<100)
[2019-09-18 09:41] LABS: CHOLESTEROL 342.33 mg/dL (0-200); VLDL CHOLESTEROL 61.8 mg/dL (10-31)
== END ==
LOC: OD 08:12
PROVIDERS: ATTEND Family Medicine Geriatric Medicine
DX: E78.5 Hyperlipidemia, unspecified (principal); E11.22 Type 2 diabetes mellitus with diabetic chronic kidney disease; E11.21 Type 2 diabetes mellitus with diabetic nephropathy; N18.3 Chronic kidney disease, stage 3 (moderate); D64.9 Anemia, unspecified; Z79.899 Other long term (current) drug therapy
CPT/HCPCS: 36415; 80061; 83036; 84460

== ENCOUNTER → 2019-10-23 | Outpatient (CLI) | payer MEDICARE ==
--- NOTE | 2019-10-23 14:48 | RADIOLOGY REPORT (SQ) ---
EXAM DESCRIPTION: U/S THYROID/SFT TISS HD NECK IMAGES COMPLETED DATE/TIME: 10/23/2019 10:43 am REASON FOR STUDY: LOCALIZED SELLING MASS AND LUMP, NECK (R22.1) R22.1 LOCALIZED SWELLING, MASS AND LUMP, NECK COMPARISON: None. TECHNIQUE: Dynamic and static grayscale images acquired of the localized site of clinical concern an d recorded on PACS. Additional selected color Doppler and spectral images recorded. SITE OF CONCERN: Right anterior neck. LIMITATIONS: None. FINDINGS: SKIN AND SUBCUTANEOUS TISSUES: No masses. No fluid collections. No edema. No foreign patricia s. DEEP SOFT TISSUES/MUSCLES: No masses. No fluid collections. No edema. VASCULAR: No increased or decreased vascularity. No occlusions. OTHER: No other significant finding. IMPRESSION: NO SOFT TISSUE MASS, FLUID COLLECTION, OR FOREIGN BODY. TECHNICAL DOCUMENTATION: JOB ID: [id number] 2010 [employer]- All Rights Reserved Reading location - IP/workstation name: [email or web address]
== END ==
LOC: RAD 10:09
PROVIDERS: ATTEND Family Medicine Geriatric Medicine
DX: R22.1 Localized swelling, mass and lump, neck (principal)
CPT/HCPCS: 76536

== ENCOUNTER → 2020-02-03 | Outpatient (CLI) | payer MEDICARE ==
[2020-02-03 10:37] LABS: ALBUMIN 4.2 g/dL (3.5-5.0); ALKALINE PHOSPHATASE 59 U/L (38-126); ANION GAP 8 (5-19); ASPARTATE AMINO TRANSFERASE 24 U/L (14-36); BILIRUBIN,DIRECT 0.1 mg/dL (0.0-0.4); BILIRUBIN,TOTAL 0.7 mg/dL (0.2-1.3); BLOOD UREA NITROGEN 24 mg/dL (7-20); CALCIUM 9.6 mg/dL (8.4-10.2); CARBON DIOXIDE 27 mmol/L (22-30); CHLORIDE 104 mmol/L (98-107); GLUCOSE 166 mg/dL (75-110); POTASSIUM 4.7 mmol/L (3.6-5.0); TOTAL PROTEIN 7.2 g/dL (6.3-8.2); TRIGLYCERIDES 380 mg/dL (<150)
[2020-02-03 10:45] LABS: CHOLESTEROL 353.05 mg/dL (0-200)
[2020-02-03 10:47] LABS: DIRECT LDL 190 mg/dL (<100)
[2020-02-04 11:38] LABS: CREATININE URINE 94.8 mg/dL (Not Estab.)
== END ==
LOC: OD 08:26
PROVIDERS: ATTEND Family Medicine Geriatric Medicine
DX: E11.21 Type 2 diabetes mellitus with diabetic nephropathy (principal); E78.5 Hyperlipidemia, unspecified; Z79.899 Other long term (current) drug therapy
CPT/HCPCS: 36415; 80053; 80061; 82043; 82570; 83036